=== PATIENT | female | born 1940 | race Caucasian/White ===

== ENCOUNTER 2020-09-11 07:58 | Outpatient (REF) | payer MEDICARE, SELFPAY ==
[2020-09-11 08:56] LABS: MANUAL DIFF FLAG NO
[2020-09-11 09:07] LABS: Basophils Percent Auto 0.5 % (0-2); Eosinophils Absolute Auto 0.2 X10*3/uL (0.0-0.4); Hematocrit 38.7 % (37-47); Imm Gran Abs Auto 0.01 X10*3/uL (0.00-0.03); Imm Gran Pct Auto 0.3 % (0.0-0.4); Lymphocytes Absolute Auto 1.8 X10*3/uL (1.2-4.9); Mean Corpuscular HGB Conc 33.6 g/dl (31.0-35.0); Mean Corpuscular Hemoglobin 33.6 pg (27.0-33.0); Mean Platelet Volume 12.8 fL (9.4-12.3); Monocytes Absolute Auto 0.3 X10*3/uL (0.1-1.2); Neutrophils Absolute Auto 1.5 X10*3/uL (2.0-8.3); Neutrophils Percent Auto 39.2 % (45-73); Platelet Count 173 X10*3/uL (160-400); Red Blood Count 3.87 X10*6/uL (4.20-5.50); Red Cell Distribution Width 12.5 % (11.0-16.0); White Blood Count 3.8 X10*3/uL (4.8-10.8)
[2020-09-11 09:21] LABS: Alanine Aminotransferase 12 U/L (0-31); Albumin Level 4.2 g/dL (3.5-5.0); Alkaline Phosphatase 58 U/L (39-117); Anion Gap 10 (12-20); Aspartate Amino Transferase 18 U/L (5-31); Bilirubin Total 0.4 mg/dL (0.0-1.0); Blood Urea Nitrogen 13 mg/dL (9-16); Calcium 9.3 mg/dL (8.4-10.2); Carbon Dioxide 30 mmol/L (22-29); Chloride 104 mmol/L (96-108); Estimated Glomerular Filt Rate > 60; Glucose Random 90 mg/dL (60-115); Iron 214 mcg/dL (30-160); Percent Iron Saturation 86 % (15-50); Potassium 4.1 mmol/l (3.3-5.1); Sodium 140 mmol/L (135-145); Total Iron Binding Capacity 248 mcg/dL (228-428); Total Protein 6.9 g/dL (6.5-8.0); Unsaturated Iron Binding 34 ug/dL
[2020-09-11 09:42] LABS: Ferritin 188 ng/mL (10-250)
== END 2020-09-11 07:59 | disposition home or self-care (01) ==
LOC: HO.LAB 07:58
PROVIDERS: Absent Provider Internal Medicine Medical Oncology; PCP Internal Medicine; Visit Provider Internal Medicine
DX: E83.110 Hereditary hemochromatosis (principal); I10 Essential (primary) hypertension; J44.9 Chronic obstructive pulmonary disease, unspecified; M19.90 Unspecified osteoarthritis, unspecified site
CPT/HCPCS: 36415; 80053; 82728; 83540; 85025

== ENCOUNTER → 2020-10-18 14:01 | Outpatient (BNVA) | payer MEDICARE, SELFPAY | PROVIDERS: PCP Internal Medicine; Visit Provider Orthopaedic Surgery | DX: M19.041 Primary osteoarthritis, right hand (principal); M19.042 Primary osteoarthritis, left hand; M65.332 Trigger finger, left middle finger | CPT/HCPCS: 20550; 99202; J1100 ==

== ENCOUNTER 2020-12-29 07:18 | Outpatient (REF) | payer MEDICARE, SELFPAY ==
[2020-12-29 08:03] LABS: MANUAL DIFF FLAG NO
[2020-12-29 08:22] LABS: Basophils Percent Auto 0.9 % (0-2); Eosinophils Absolute Auto 0.1 X10*3/uL (0.0-0.4); Eosinophils Percent Auto 2.8 % (0-4); Hematocrit 38.4 % (37-47); Hemoglobin 13.1 g/dl (12.0-16.0); Imm Gran Abs Auto 0.01 X10*3/uL (0.00-0.03); Imm Gran Pct Auto 0.2 % (0.0-0.4); Lymphocytes Absolute Auto 2.3 X10*3/uL (1.2-4.9); Lymphocytes Percent Auto 53.7 % (20-40); Mean Corpuscular HGB Conc 34.1 g/dl (31.0-35.0); Mean Corpuscular Hemoglobin 34.4 pg (27.0-33.0); Mean Corpuscular Volume 100.8 fL (80-98); Mean Platelet Volume 11.9 fL (9.4-12.3); Monocytes Absolute Auto 0.4 X10*3/uL (0.1-1.2); Monocytes Percent Auto 9.7 % (2-11); Neutrophils Absolute Auto 1.4 X10*3/uL (2.0-8.3); Neutrophils Percent Auto 32.7 % (45-73); Platelet Count 206 X10*3/uL (160-400); Red Blood Count 3.81 X10*6/uL (4.20-5.50); Red Cell Distribution Width 12.2 % (11.0-16.0); White Blood Count 4.3 X10*3/uL (4.8-10.8)
[2020-12-29 08:31] LABS: Alanine Aminotransferase 14 U/L (0-31); Albumin Level 4.1 g/dL (3.5-5.0); Alkaline Phosphatase 67 U/L (39-117); Anion Gap 13 (12-20); Aspartate Amino Transferase 23 U/L (5-31); Bilirubin Total 0.5 mg/dL (0.0-1.0); Blood Urea Nitrogen 12 mg/dL (9-16); Calcium 9.8 mg/dL (8.4-10.2); Carbon Dioxide 27 mmol/L (22-29); Chloride 103 mmol/L (96-108); Estimated Glomerular Filt Rate > 60; Glucose Random 83 mg/dL (60-115); Iron 206 mcg/dL (30-160); Percent Iron Saturation 85 % (15-50); Potassium 4.2 mmol/L (3.3-5.1); Sodium 139 mmol/L (135-145); Total Iron Binding Capacity 243 mcg/dL (228-428); Total Protein 7.1 g/dL (6.5-8.0); Unsaturated Iron Binding 37 ug/dL
[2020-12-29 08:43] LABS: Glucose Urine UA NEG (NEG); Leukocyte Esterase Urine TRACE (NEG); Nitrite Urine NEG (NEG); Specific Gravity - Urine 1.015 (1.005-1.025); Urine Blood NEG (NEG); Urine Ketones NEG (NEG); Urine Protein NEG (NEG-TRACE)
[2020-12-29 08:44] LABS: Appearance Urine CLEAR; Color Urine YELLOW
[2020-12-29 08:53] LABS: Ferritin 150 ng/mL (10-250)
[2020-12-29 09:03] LABS: RBC Urine 0 /HPF (0); Squamous Epithelial Cell Urine TRACE /LPF
== END 2020-12-29 07:19 | disposition home or self-care (01) ==
LOC: HO.LAB 07:18
PROVIDERS: PCP Internal Medicine; Visit Provider Internal Medicine
DX: I10 Essential (primary) hypertension (principal); G25.81 Restless legs syndrome; K21.9 Gastro-esophageal reflux disease without esophagitis; E83.119 Hemochromatosis, unspecified
CPT/HCPCS: 36415; 80053; 81001; 81003; 82728; 83540; 85025

== ENCOUNTER 2021-03-21 10:14 | Outpatient (REF) | payer SELFPAY | END 2021-03-21 10:15 | disposition home or self-care (01) | LOC: HO.HAP 10:14 | PROVIDERS: Visit Provider Internal Medicine | DX: Z46.1 Encounter for fitting and adjustment of hearing aid (principal); H90.6 Mixed conductive and sensorineural hearing loss, bilateral; H69.93 Unspecified Eustachian tube disorder, bilateral | CPT/HCPCS: 99499 ==

== ENCOUNTER 2021-04-12 06:24 | Outpatient (REF) | payer MEDICARE, SELFPAY ==
[2021-04-12 06:56] LABS: MANUAL DIFF FLAG NO
[2021-04-12 06:59] LABS: Basophils Percent Auto 0.6 % (0-2); Eosinophils Absolute Auto 0.2 X10*3/uL (0.0-0.4); Eosinophils Percent Auto 4.7 % (0-4); Hematocrit 35.9 % (37-47); Hemoglobin 12.5 g/dl (12.0-16.0); Imm Gran Abs Auto 0.01 X10*3/uL (0.00-0.03); Imm Gran Pct Auto 0.3 % (0.0-0.4); Lymphocytes Absolute Auto 1.7 X10*3/uL (1.2-4.9); Lymphocytes Percent Auto 51.5 % (20-40); Mean Corpuscular HGB Conc 34.8 g/dl (31.0-35.0); Mean Corpuscular Hemoglobin 35.1 pg (27.0-33.0); Mean Corpuscular Volume 100.8 fL (80-98); Mean Platelet Volume 11.7 fL (9.4-12.3); Monocytes Absolute Auto 0.3 X10*3/uL (0.1-1.2); Monocytes Percent Auto 8.3 % (2-11); Neutrophils Absolute Auto 1.2 X10*3/uL (2.0-8.3); Neutrophils Percent Auto 34.6 % (45-73); Platelet Count 190 X10*3/uL (160-400); Red Blood Count 3.56 X10*6/uL (4.20-5.50); Red Cell Distribution Width 12.4 % (11.0-16.0); White Blood Count 3.4 X10*3/uL (4.8-10.8)
[2021-04-12 07:32] LABS: Alanine Aminotransferase 13 U/L (0-31); Alkaline Phosphatase 55 U/L (39-117); Anion Gap 10 (12-20); Aspartate Amino Transferase 20 U/L (5-31); Bilirubin Total 0.5 mg/dL (0.0-1.0); Blood Urea Nitrogen 14 mg/dL (9-16); Calcium 9.3 mg/dL (8.4-10.2); Carbon Dioxide 27 mmol/L (22-29); Chloride 109 mmol/L (96-108); Cholesterol 160 mg/dL; Estimated Glomerular Filt Rate > 60; Glucose Fasting 94 mg/dL (60-99); HDL Cholesterol 43 mg/dL; Iron 209 mcg/dL (30-160); LDL Cholesterol Calculated 95 mg/dl; Percent Iron Saturation 87 % (15-50); Potassium 4.1 mmol/L (3.3-5.1); Sodium 142 mmol/L (135-145); Total Iron Binding Capacity 239 mcg/dL (228-428); Total Protein 6.9 g/dL (6.5-8.0); Triglycerides 114 mg/dL; Unsaturated Iron Binding 30 ug/dL
[2021-04-12 08:08] LABS: Ferritin 149 ng/mL (10-250)
[2021-04-12 08:52] LABS: Glucose Urine UA NEG (NEG); Leukocyte Esterase Urine TRACE (NEG); Nitrite Urine NEG (NEG); Urine Blood NEG (NEG); Urine Ketones NEG (NEG); Urine Protein NEG (NEG-TRACE)
[2021-04-12 08:54] LABS: Appearance Urine CLEAR; Color Urine YELLOW
[2021-04-12 09:35] LABS: Bacteria Urine TRACE /LPF; RBC Urine 0-2 /HPF (0); Squamous Epithelial Cell Urine TRACE /LPF
== END 2021-04-12 06:25 | disposition home or self-care (01) ==
LOC: HO.LAB 06:24
PROVIDERS: PCP Internal Medicine; Visit Provider Internal Medicine
DX: I10 Essential (primary) hypertension (principal); E78.00 Pure hypercholesterolemia, unspecified; E83.119 Hemochromatosis, unspecified; M81.0 Age-related osteoporosis without current pathological fracture
CPT/HCPCS: 36415; 80053; 80061; 81001; 82728; 83540; 85025

== ENCOUNTER 2021-04-26 08:56 | Outpatient (REF) | payer MEDICARE, SELFPAY ==
--- NOTE | ~2021-04-26 | MM_ITS ---
EXAMINATION: MM SCREENING DIGITAL BREAST TOMOSYNTHESIS, BILATERAL CLINICAL INFORMATION: Screening. Asymptomatic. The lifetime risk of breast cancer based on the Tyrer-Cuzick Model is 2%. COMPARISON: Mammography: 04/20/2020, 10/01/2018, 12/29/2017 TECHNIQUE: Digital breast tomosynthesis is performed in both the craniocaudal and mediolateral oblique views along with computer-aided detection (CAD). Synthesized 2D images are generated from the tomosynthesis. FINDINGS: There are scattered areas of fibroglandular density (ACR BI-RADS breast composition Category b). There are no significant masses, abnormal calcifications, or other abnormalities. Parenchymal pattern is similar to prior studies. No developing density. There are scattered bilateral vascular and benign punctate round calcifications again seen. The skin contours are smooth. No significant changes. MM/MM tomosynthesis screening BI IMPRESSION: No mammographic evidence of malignancy. ASSESSMENT: BI-RADS 2: Benign RECOMMENDATION: Routine annual mammography screening. This patient's information was entered into a reminder system with a target due date for their next mammogram.
--- NOTE | ~2021-04-26 | MM_ITS ---
EXAMINATION: BONE DENSITOMETRY CLINICAL INDICATION: Screening for osteoporosis. COMPARISON: Previous BD dated 12/30/2018 and baseline BD dated 07/22/2007. TECHNIQUE: Using a [employer] DXA System (software version: 13.1) manufactured by [employer], dual-energy x-ray absorptiometry was performed of the lumbar spine and left hip. The images are of good technical quality. Summary results are attached. FINDINGS: AP SPINE L1-L2 (excluding L3 and L4): The data of L1-L4 has been changed to exclude the L3 and L4 vertebral bodies, because hardware at these levels may cause overestimation of lumbar spine density. Current: BMD 1.036 g/cm2, Z-score 0.5, T-score -1.1, osteopenia, 0.3% decrease from previous, 9.3% decrease from baseline (<5% change is not significant). Prior: BMD 1.039 g/cm2. Baseline: BMD 1.142 g/cm2. LEFT FEMUR, NECK: Current: BMD 0.650 g/cm2, Z-score -0.7, T-score -2.8, osteoporosis. Prior: BMD 0.785 g/cm2. Baseline: BMD 0.803 g/cm2. LEFT FEMUR, TOTAL: Current: BMD 0.741 g/cm2, Z-score -0.2, T-score -2.1, osteopenia, 14.6% decrease from previous, 18.6% decrease from baseline (<5% change is not significant). Prior: BMD 0.868 g/cm2. Baseline: BMD 0.910 g/cm2. IDENTIFIED RISK FACTORS: Early menopause, secondary osteoporosis, osteoporosis, height loss, low calcium intake, hysterectomy, bilateral oophorectomy. HISTORY OF FRACTURE: None listed. MEDICATIONS: Calcium supplements or multivitamin, vitamin D. MM/XR DEXA axial skeleton IMPRESSION: 1. DIAGNOSIS: Osteoporosis based on the lowest T-score value of -2.8 in the femoral neck applying World Health Organization criteria. 2. 10-YEAR FRACTURE RISK PREDICTION, FRAX: According to the guidelines, FRAX calculation should only be performed on patients in the osteopenia bone density category. Therefore, FRAX was not performed on this patient. 3. Treatment Recommendations: NOF guidelines recommend consideration for treatment in postmenopausal women and men age 50 and older presenting with the following: -A hip or vertebral (clinical or morphometric) fracture. -T-score less than or equal to -2.5 at the femoral neck or spine after appropriate evaluation to exclude secondary causes. -Low bone mass at the hip or spine and a 10-year fracture probability by FRAX of greater than or equal to 3% for hip fracture or greater than or equal to 20% for major osteoporotic fracture based on the [place] adapted WHO algorithm. 4. Other Recommendations: All treatment decisions require clinical judgment and consideration of individual patient factors, including patient preferences, comorbidities, previous drug use, risk factors not captured in the FRAX model (e.g. frailty, falls, vitamin D deficiency, increased bone turnover, interval significant decline in bone density) and possible under or overestimation of fracture risk by FRAX. Additional medical evaluation for secondary cause of low bone mineral density may be appropriate. FUTURE SCAN RECOMMENDATION: People with diagnosed cases of osteoporosis or at high risk for fracture should have regular bone mineral density tests. For patients eligible for Medicare, routine testing is allowed once every 2 years. The testing frequency can be increased to one year for patients who have rapidly progressing disease, those who are receiving or discontinuing medical therapy to restore bone mass, or have additional risk factors.
== END 2021-04-26 08:57 | disposition home or self-care (01) ==
LOC: HO.MAMMO 08:56
PROVIDERS: PCP Internal Medicine; Visit Provider Internal Medicine
DX: Z13.820 Encounter for screening for osteoporosis (principal); Z78.0 Asymptomatic menopausal state; Z12.31 Encounter for screening mammogram for malignant neoplasm of breast
CPT/HCPCS: 77063; 77067; 77080

== ENCOUNTER 2021-07-03 12:06 | Outpatient (REF) | payer MEDICARE, SELFPAY ==
[2021-07-03 13:44] LABS: MANUAL DIFF FLAG NO
[2021-07-03 13:55] LABS: Basophils Percent Auto 0.6 % (0-2); Eosinophils Absolute Auto 0.2 X10*3/uL (0.0-0.4); Eosinophils Percent Auto 3.2 % (0-4); Hematocrit 37.1 % (37-47); Hemoglobin 12.7 g/dl (12.0-16.0); Imm Gran Abs Auto 0.01 X10*3/uL (0.00-0.03); Imm Gran Pct Auto 0.2 % (0.0-0.4); Lymphocytes Absolute Auto 2.5 X10*3/uL (1.2-4.9); Lymphocytes Percent Auto 51.2 % (20-40); Mean Corpuscular HGB Conc 34.2 g/dl (31.0-35.0); Mean Corpuscular Hemoglobin 34.2 pg (27.0-33.0); Monocytes Absolute Auto 0.4 X10*3/uL (0.1-1.2); Monocytes Percent Auto 8.5 % (2-11); Neutrophils Absolute Auto 1.8 X10*3/uL (2.0-8.3); Neutrophils Percent Auto 36.3 % (45-73); Platelet Count 204 X10*3/uL (160-400); Red Blood Count 3.71 X10*6/uL (4.20-5.50); Red Cell Distribution Width 12.1 % (11.0-16.0); White Blood Count 4.9 X10*3/uL (4.8-10.8)
[2021-07-03 14:23] LABS: Alanine Aminotransferase 11 U/L (0-31); Albumin Level 4.1 g/dL (3.5-5.0); Alkaline Phosphatase 54 U/L (39-117); Anion Gap 10 (12-20); Aspartate Amino Transferase 21 U/L (5-31); Bilirubin Total 0.6 mg/dL (0.0-1.0); Blood Urea Nitrogen 17 mg/dL (9-16); Calcium 9.5 mg/dL (8.4-10.2); Carbon Dioxide 30 mmol/L (22-29); Chloride 105 mmol/L (96-108); Estimated Glomerular Filt Rate > 60; Glucose Random 88 mg/dL (60-115); Iron 225 mcg/dL (30-160); Sodium 141 mmol/L (135-145); Total Iron Binding Capacity < 242 mcg/dL (228-428); Unsaturated Iron Binding < 17 ug/dL
[2021-07-03 14:45] LABS: Ferritin 167 ng/mL (10-250)
== END 2021-07-03 12:07 | disposition home or self-care (01) ==
LOC: HO.10HDL 12:06
PROVIDERS: Visit Provider Internal Medicine
DX: I10 Essential (primary) hypertension (principal); K21.9 Gastro-esophageal reflux disease without esophagitis; E83.119 Hemochromatosis, unspecified; Z87.442 Personal history of urinary calculi
CPT/HCPCS: 36415; 80053; 82728; 83540; 85025

== ENCOUNTER 2021-07-04 07:46 | Outpatient (REF) | payer MEDICARE, SELFPAY ==
[2021-07-04 10:41] LABS: Appearance Urine CLOUDY; Color Urine YELLOW; Glucose Urine UA NEG (NEG); Leukocyte Esterase Urine TRACE (NEG); Nitrite Urine NEG (NEG); PH 7.5 (5.0-8.0); Specific Gravity - Urine 1.015 (1.005-1.025); Urine Blood 1+ (NEG); Urine Ketones NEG (NEG); Urine Protein NEG (NEG-TRACE)
[2021-07-04 11:00] LABS: Amorphous Sediment Urine 3+ /LPF; Bacteria Urine 1+ /LPF; Squamous Epithelial Cell Urine 1+ /LPF
== END 2021-07-04 07:47 | disposition home or self-care (01) ==
LOC: HO.10HDLNP 07:46
PROVIDERS: Visit Provider Internal Medicine
DX: E83.110 Hereditary hemochromatosis (principal); I10 Essential (primary) hypertension; K21.9 Gastro-esophageal reflux disease without esophagitis; Z87.442 Personal history of urinary calculi
CPT/HCPCS: 81001; 81003

== ENCOUNTER 2021-09-24 09:29 | Outpatient (REF) | payer MEDICARE, SELFPAY ==
--- NOTE | ~2021-09-24 | US_ITS ---
EXAMINATION: US RETROPERITONEAL LIMITED (RENAL ONLY) CLINICAL INFORMATION: Calculus of kidney. COMPARISON: Renal ultrasound 10/11/2019 and 08/17/2019. X-ray abdomen KUB 09/22/2019. CT abdomen and pelvis 05/05/2013. TECHNIQUE: Real-time imaging of the kidneys. FINDINGS: RIGHT KIDNEY: 9.4 x 4.0 x 4.9 cm (SAG x AP x TRV). The kidney is normal in size, contour, and echogenicity. Renal cortical thickness is normal. No renal calculi or hydronephrosis. There is an anechoic cyst in the midpole measuring 4.5 x 4.7 x 5.2 cm. There is an anechoic cyst with calcification on the parapharyngeal in the upper pole measuring 1.0 x 0.9 x 1.0 cm. No echogenic vascular calcifications at the lower pole. LEFT KIDNEY: 8.4 x 4.8 x 5.4 cm (SAG x AP x TRV). The kidney is normal in size, contour, and echogenicity. Renal cortical thickness is normal. No calculi or focal parenchymal lesions. No hydronephrosis. US/US renal BI IMPRESSION: Simple cyst and a complex Bosniak type II cyst midpole and upper pole right kidney respectively. No caliectasis or hydronephrosis. Unremarkable left kidney.
[2021-09-24 10:21] LABS: MANUAL DIFF FLAG NO
[2021-09-24 10:47] LABS: Basophils Percent Auto 0.7 % (0-2); Eosinophils Absolute Auto 0.1 X10*3/uL (0.0-0.4); Eosinophils Percent Auto 3.4 % (0-4); Hematocrit 37.4 % (37.0-47.0); Hemoglobin 12.7 g/dl (12.0-16.0); Imm Gran Abs Auto 0.01 X10*3/uL (0.00-0.03); Imm Gran Pct Auto 0.2 % (0.0-0.4); Lymphocytes Absolute Auto 1.9 X10*3/uL (1.2-4.9); Lymphocytes Percent Auto 46.2 % (20-40); Mean Corpuscular Hemoglobin 34.2 pg (27.0-33.0); Mean Corpuscular Volume 100.8 fL (80.0-98.0); Mean Platelet Volume 12.3 fL (9.4-12.3); Monocytes Absolute Auto 0.4 X10*3/uL (0.1-1.2); Monocytes Percent Auto 8.5 % (2-11); Neutrophils Absolute Auto 1.7 x10*3/uL (2.0-8.3); Platelet Count 176 X10*3/uL (160-400); Red Blood Count 3.71 X10*6/uL (4.20-5.50); Red Cell Distribution Width 12.6 % (11.0-16.0); White Blood Count 4.1 X10*3/uL (4.8-10.8)
[2021-09-24 11:16] LABS: Alanine Aminotransferase 13 U/L (0-31); Albumin Level 3.9 g/dL (3.5-5.0); Alkaline Phosphatase 58 U/L (39-117); Anion Gap 10 (12-20); Aspartate Amino Transferase 20 U/L (5-31); Bilirubin Total 0.5 mg/dL (0.0-1.0); Blood Urea Nitrogen 22 mg/dL (9-16); Calcium 9.9 mg/dL (8.4-10.2); Carbon Dioxide 29 mmol/L (22-29); Chloride 106 mmol/L (96-108); Estimated Glomerular Filt Rate > 60; Glucose Random 78 mg/dL (60-115); Potassium 4.6 mmol/L (3.3-5.1); Sodium 140 mmol/L (135-145); Total Protein 6.8 g/dL (6.5-8.0)
[2021-09-24 11:32] LABS: Ferritin 189 ng/mL (10-250)
== END 2021-09-24 09:30 | disposition home or self-care (01) ==
LOC: HO.US 09:29
PROVIDERS: Absent Provider Internal Medicine Medical Oncology; PCP Internal Medicine; Visit Provider Urology
DX: N20.0 Calculus of kidney (principal); E83.110 Hereditary hemochromatosis; E66.9 Obesity, unspecified
CPT/HCPCS: 36415; 76775; 80053; 82728; 85025

== ENCOUNTER → 2021-10-09 12:04 | Outpatient (BNVA) | payer MEDICARE, SELFPAY | PROVIDERS: PCP Internal Medicine | DX: Z13.89 Encounter for screening for other disorder (principal) | CPT/HCPCS: Q3014 ==

== ENCOUNTER 2021-10-11 06:40 | Outpatient (REF) | payer MEDICARE, SELFPAY ==
[2021-10-11 06:51] LABS: MANUAL DIFF FLAG NO
[2021-10-11 07:21] LABS: Basophils Percent Auto 0.5 % (0-2); Eosinophils Absolute Auto 0.2 X10*3/uL (0.0-0.4); Eosinophils Percent Auto 4.6 % (0-4); Hematocrit 37.7 % (37.0-47.0); Hemoglobin 12.6 g/dl (12.0-16.0); Imm Gran Abs Auto 0.01 X10*3/uL (0.00-0.03); Imm Gran Pct Auto 0.2 % (0.0-0.4); Lymphocytes Absolute Auto 2.1 X10*3/uL (1.2-4.9); Lymphocytes Percent Auto 47.2 % (20-40); Mean Corpuscular HGB Conc 33.4 g/dl (31.0-35.0); Mean Corpuscular Hemoglobin 33.5 pg (27.0-33.0); Mean Corpuscular Volume 100.3 fL (80.0-98.0); Mean Platelet Volume 12.1 fL (9.4-12.3); Monocytes Absolute Auto 0.5 X10*3/uL (0.1-1.2); Monocytes Percent Auto 10.8 % (2-11); Neutrophils Absolute Auto 1.6 x10*3/uL (2.0-8.3); Neutrophils Percent Auto 36.7 % (45-73); Platelet Count 188 X10*3/uL (160-400); Red Blood Count 3.76 X10*6/uL (4.20-5.50); Red Cell Distribution Width 12.8 % (11.0-16.0); White Blood Count 4.3 X10*3/uL (4.8-10.8)
[2021-10-11 07:49] LABS: Alanine Aminotransferase 15 U/L (0-31); Albumin Level 4.1 g/dL (3.5-5.0); Alkaline Phosphatase 64 U/L (39-117); Anion Gap 10 (12-20); Aspartate Amino Transferase 22 U/L (5-31); Bilirubin Total 0.4 mg/dL (0.0-1.0); Blood Urea Nitrogen 17 mg/dL (9-16); Calcium 9.8 mg/dL (8.4-10.2); Carbon Dioxide 28 mmol/L (22-29); Chloride 108 mmol/L (96-108); Estimated Glomerular Filt Rate > 60; Glucose Random 84 mg/dL (60-115); Potassium 4.1 mmol/L (3.3-5.1); Sodium 142 mmol/L (135-145)
== END 2021-10-11 06:41 | disposition home or self-care (01) ==
LOC: HO.LAB 06:40
PROVIDERS: PCP Internal Medicine; Visit Provider Internal Medicine Medical Oncology
DX: E83.110 Hereditary hemochromatosis (principal); E66.3 Overweight
CPT/HCPCS: 36415; 80053; 85025

== ENCOUNTER 2021-10-15 08:39 | Outpatient (REF) | payer MEDICARE, SELFPAY ==
--- NOTE | ~2021-10-15 | CT_ITS ---
EXAMINATION: CT ABDOMEN WITH CONTRAST CLINICAL INFORMATION: Hereditary hemochromatosis COMPARISON: Renal ultrasound 09/24/[address] abdomen pelvis 05/05/2013 TECHNIQUE: Contiguous axial thin section helical images of the abdomen were performed following the administration of 85 mL of Omnipaque 350 intravenous contrast. The data set was reformatted in the coronal and sagittal planes and reviewed on an independent workstation. This CT examination was performed using dose optimization techniques as appropriate, variously including the following: *Automated exposure control *Adjustment of mA and/or kV according to patient size (this includes techniques or standardized protocols for targeted exams where dose is matched to indication/reason for exam; i.e. extremities or head) *Use of iterative reconstruction technique DLP: 208 mGy-cm FINDINGS: Visualized lung bases demonstrate lingular and dependent atelectasis. Small calcified granuloma of the right lung base. The liver demonstrates normal size, attenuation and contour. 6 mm hypodense focus the mid right hepatic lobe is small to accurately characterize. Gallstone again identified within an otherwise unremarkable appearing gallbladder. Mild fatty atrophy of the pancreas. Spleen and right adrenal gland are unremarkable. Mild hypertrophy of the left adrenal gland. Symmetrically enhancing kidneys without hydronephrosis. There is a 3 mm nonobstructing calculus within the midpole of the right kidney and a smaller 2 mm nonobstructing calculus within the lower pole of the right kidney. No left-sided renal calculi are identified. There is an approximately 5 cm right renal cyst noted which has increased in size from 2012 (previously 3 cm). A few other sub-5 mm renal hypodensities bilaterally are too small to accurately characterize. The stomach is relatively decompressed. Visualized loops of small bowel are normal in caliber. Visualized loops of colon demonstrate a mild to moderate stool burden. There is mild colonic diverticulosis demonstrated without CT evidence to suggest active diverticulitis. The appendix is normal in appearance. Normal caliber abdominal aorta demonstrating mild to moderate atherosclerotic disease. A recanalized umbilical vein is noted. 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 Diffuse osteopenia. Moderate degenerative changes of the spine. Postsurgical changes of the lower lumbar spine. Similar mild anterolisthesis of L4 and L5. CT/CT abdomen w con IMPRESSION: 1. Cholelithiasis. 2. Tiny nonobstructing right renal calculi. No hydronephrosis. 3. Bilateral renal cysts again noted. 4. Colonic diverticulosis. 5. Recanalized umbilical vein. Fleischner guidelines were followed.
[2021-10-15] MEDS: iohexoL 350 MG/ML 100 ML INFUS..BTL IV (10:14)
[2021-10-15] MEDS: Barium Sulfate Oral (Berry) 450 ML ORAL.SUSP PO (10:16)
== END 2021-10-15 08:40 | disposition home or self-care (01) ==
LOC: HO.CT 08:39
PROVIDERS: PCP Internal Medicine Medical Oncology; Visit Provider Internal Medicine Medical Oncology
DX: E83.110 Hereditary hemochromatosis (principal)
CPT/HCPCS: 74160; Q9967

== ENCOUNTER → 2021-12-11 08:58 | Outpatient (BNVA) | payer MEDICARE, SELFPAY | PROVIDERS: PCP Internal Medicine Medical Oncology; Visit Provider Orthopaedic Surgery | DX: M65.331 Trigger finger, right middle finger (principal); M19.041 Primary osteoarthritis, right hand; M19.042 Primary osteoarthritis, left hand; M65.332 Trigger finger, left middle finger; M65.342 Trigger finger, left ring finger | CPT/HCPCS: 99212 ==

== ENCOUNTER 2021-12-14 11:11 | Outpatient (REF) | payer MEDICARE, SELFPAY ==
[2021-12-14 11:41] LABS: MANUAL DIFF FLAG NO
[2021-12-14 12:09] LABS: Basophils Percent Auto 0.2 % (0-2); Eosinophils Absolute Auto 0.1 X10*3/uL (0.0-0.4); Eosinophils Percent Auto 2.2 % (0-4); Hematocrit 36.4 % (37.0-47.0); Hemoglobin 12.4 g/dl (12.0-16.0); Lymphocytes Absolute Auto 1.9 X10*3/uL (1.2-4.9); Lymphocytes Percent Auto 47.4 % (20-40); Mean Corpuscular HGB Conc 34.1 g/dl (31.0-35.0); Mean Corpuscular Hemoglobin 34.3 pg (27.0-33.0); Mean Corpuscular Volume 100.8 fL (80.0-98.0); Mean Platelet Volume 11.7 fL (9.4-12.3); Monocytes Absolute Auto 0.4 X10*3/uL (0.1-1.2); Neutrophils Absolute Auto 1.7 x10*3/uL (2.0-8.3); Neutrophils Percent Auto 41.2 % (45-73); Platelet Count 164 X10*3/uL (160-400); Red Blood Count 3.61 X10*6/uL (4.20-5.50); Red Cell Distribution Width 13.2 % (11.0-16.0)
[2021-12-14 12:24] LABS: Appearance Urine CLEAR; Color Urine YELLOW; Glucose Urine UA NEG (NEG); Leukocyte Esterase Urine TRACE (NEG); Nitrite Urine NEG (NEG); Urine Blood NEG (NEG); Urine Ketones NEG (NEG); Urine Protein NEG (NEG-TRACE)
[2021-12-14 12:38] LABS: Iron 178 mcg/dL (30-160); Percent Iron Saturation 77 % (15-50); Total Iron Binding Capacity 231 mcg/dL (228-428); Unsaturated Iron Binding 53 ug/dL
[2021-12-14 13:18] LABS: Bacteria Urine 1+ /LPF; RBC Urine 0-2 /HPF (0); Squamous Epithelial Cell Urine TRACE /LPF
== END 2021-12-14 11:12 | disposition home or self-care (01) ==
LOC: HO.LAB 11:11
PROVIDERS: PCP Internal Medicine; Visit Provider Internal Medicine
DX: I10 Essential (primary) hypertension (principal); E83.119 Hemochromatosis, unspecified; R31.9 Hematuria, unspecified
CPT/HCPCS: 36415; 81001; 83540; 85025

== ENCOUNTER 2021-12-26 10:38 | Outpatient (REF) | payer SELFPAY | END 2021-12-26 10:39 | disposition home or self-care (01) | LOC: HO.HAP 10:38 | PROVIDERS: Visit Provider Internal Medicine | DX: Z46.2 Encounter for fitting and adjustment of other devices related to nervous system and special senses (principal) | CPT/HCPCS: 99499 ==

== ENCOUNTER 2022-01-10 10:16 | Day surgery (SDC) | payer MEDICARE, SELFPAY ==
[2022-01-10 10:32] VITALS: BP 164/77; PULSE 71; RESP 18; TEMP 36.5; O2SAT 95; BMI 28.3
[2022-01-10 12:57] VITALS: BP 155/73; PULSE 89; RESP 21; TEMP 37; O2SAT 95
--- NOTE | 2022-01-10 12:57 | MHC.SHP ---
Pre-Procedural Eval Section A Date of Service: 01/10/22 The patient is an INPATIENT: No Changes since office visit: No Cold of Flu in the past 2 weeks, No New Medical Problems, No Changes in Medication and No Patient answered all questions The History & Physical has been completed within 30 days and I have reviewed it.: Yes Section B Chief Complaint: Right middle finger trigger finger Allergies: Allergies Allergy/AdvReac Type Severity Reaction Status Date / Time bee pollen [BEE STINGS] Allergy Severe ANAPHYLAXIS Verified 10/09/21 12:51 celecoxib [From Celebrex] Allergy Severe INTERNAL Verified 10/09/21 12:51 BLEEDING Plan I have reviewed the history and physical and performed a pertinent physical examination on my patient. No changes have occurred unless specified.
--- NOTE | 2022-01-10 12:58 | W.PM.OPN ---
Operative Note Operative Note Date of Service: 01/10/22 Narrative: Operative Note Preop diagnosis: 1. right middle finger Trigger finger, locked in extension Postop diagnosis: 1. right middle finger Trigger finger Procedure: 1. right middle finger A1 zachariah release 2. Right middle finger PIP joint closed manipulation Surgeon: Fela Smith MD Anesthesia: local block using 1% lidocaine with epinephrine Findings: No locking or catching after A1 zachariah release EBL: Less than 5 mL Tourniquet time: None Specimens: None Complications: None Disposition: Brought to recovery room in stable condition Plan: Follow-up for 10-14 days for wound check and suture removal Indications: The patient is 81 years old, with a right middle finger trigger finger that was locked in extension. The risks and benefits of operative treatment including but not limited to risk of damage to blood vessels, nerves, tendons, infection, persistent pain, persistent symptoms, recurrence or possible need for additional surgery were discussed with the patient and the patient wishes to proceed with surgery. Procedure: Once consent was obtained a local block was performed in the preop area using a combination of 1% lidocaine with epinephrine. The patient was then brought back to the operating suite and placed on the operative table in supine position. A tourniquet was applied to the proximal aspect of the right upper extremity and the limb was prepped and draped in a standard surgical fashion. Once assured that we had a good block, a 1.5 cm oblique incision was made centered over the A1 zachariah of the right middle finger . The incision was made through the skin to the subcutaneous tissues using a #15 blade. Careful dissection was made down to the level of the A1 zachariah using tenotomy scissors, with care being taken to protect the nearby neurovascular structures. A longitudinal incision was made in the A1 zachariah 1st using a #15 blade, then using tenotomy scissors under direct visualization. The A1 zachariah was noted to be thickened. the FDS tendon was noted to be thickened and flattened beneath the A1 zachariah. I then performed a gentle closed manipulation of the left middle finger PIP joint. I was able to bring her middle finger tip to touch her palm. I then had her actively flex and extend her fingers to check for any locking or catching, and to show her that she could now actively flex her middle finger into a fist. Following our A1 zachariah release, we no longer saw any locking or catching of the digit with flexion and extension. Once satisfied with our A1 zachariah release the wound was copiously irrigated with normal saline and hemostasis was obtained with a brief period of local pressure. The skin edges were reapproximated with some 5.0 nylon suture material and a sterile dressing was applied. The patient appears to have tolerated the procedure well and with no complications. All digits were well vascularized at the conclusion of the case.
== END 2022-01-10 13:20 | disposition home or self-care (01) ==
PROVIDERS: PCP Internal Medicine; Visit Provider Orthopaedic Surgery
PROC: (CPT 26055; principal; 2022-01-10 12:00)
DX: M65.331 Trigger finger, right middle finger (principal); M19.041 Primary osteoarthritis, right hand; E83.119 Hemochromatosis, unspecified; K21.9 Gastro-esophageal reflux disease without esophagitis; Z79.899 Other long term (current) drug therapy
CPT/HCPCS: 26055; J0171

== ENCOUNTER → 2022-01-23 10:15 | Outpatient (BNVA) | payer MEDICARE, SELFPAY | PROVIDERS: PCP Internal Medicine; Visit Provider Orthopaedic Surgery | DX: Z47.89 Encounter for other orthopedic aftercare (principal); Z87.39 Personal history of other diseases of the musculoskeletal system and connective tissue | CPT/HCPCS: 99212 ==

== ENCOUNTER 2022-03-22 10:31 | Outpatient (REF) | payer MEDICARE, SELFPAY ==
[2022-03-22 13:35] LABS: MANUAL DIFF FLAG NO
[2022-03-22 13:38] LABS: Basophils Percent Auto 0.7 % (0-2); Eosinophils Absolute Auto 0.1 X10*3/uL (0.0-0.4); Eosinophils Percent Auto 2.1 % (0-4); Hematocrit 38.1 % (37.0-47.0); Hemoglobin 13.1 g/dl (12.0-16.0); Imm Gran Abs Auto 0.01 X10*3/uL (0.00-0.03); Imm Gran Pct Auto 0.2 % (0.0-0.4); Lymphocytes Absolute Auto 2.3 X10*3/uL (1.2-4.9); Mean Corpuscular HGB Conc 34.4 g/dl (31.0-35.0); Mean Corpuscular Hemoglobin 34.4 pg (27.0-33.0); Mean Platelet Volume 12.2 fL (9.4-12.3); Monocytes Absolute Auto 0.4 X10*3/uL (0.1-1.2); Monocytes Percent Auto 9.6 % (2-11); Neutrophils Absolute Auto 1.5 x10*3/uL (2.0-8.3); Neutrophils Percent Auto 34.4 % (45-73); Platelet Count 217 X10*3/uL (160-400); Red Blood Count 3.81 X10*6/uL (4.20-5.50); Red Cell Distribution Width 12.3 % (11.0-16.0); White Blood Count 4.3 X10*3/uL (4.8-10.8)
[2022-03-22 13:52] LABS: Alanine Aminotransferase 18 U/L (0-31); Albumin Level 4.4 g/dL (3.5-5.0); Alkaline Phosphatase 55 U/L (39-117); Anion Gap 12 (12-20); Aspartate Amino Transferase 23 U/L (5-31); Bilirubin Total 0.6 mg/dL (0.0-1.0); Blood Urea Nitrogen 17 mg/dL (9-16); Calcium 9.2 mg/dL (8.4-10.2); Carbon Dioxide 28 mmol/L (22-29); Chloride 104 mmol/L (96-108); Estimated Glomerular Filt Rate 60; Glucose Random 84 mg/dL (60-115); Iron 242 mcg/dL (30-160); Potassium 4.2 mmol/L (3.3-5.1); Sodium 140 mmol/L (135-145); Total Iron Binding Capacity < 259 mcg/dL (228-428); Total Protein 7.1 g/dL (6.5-8.0); Unsaturated Iron Binding < 17 ug/dL
[2022-03-22 14:07] LABS: Ferritin 145 ng/mL (10-250)
== END 2022-03-22 10:32 | disposition home or self-care (01) ==
LOC: HO.10HDL 10:31
PROVIDERS: Visit Provider Internal Medicine
DX: I10 Essential (primary) hypertension (principal); E83.119 Hemochromatosis, unspecified
CPT/HCPCS: 36415; 80053; 82728; 83540; 85025

== ENCOUNTER 2022-04-29 08:36 | Outpatient (REF) | payer MEDICARE, SELFPAY ==
--- NOTE | ~2022-04-29 | MM_ITS ---
EXAMINATION: MM SCREENING DIGITAL BREAST TOMOSYNTHESIS, BILATERAL CLINICAL INFORMATION: Screening. Asymptomatic. The lifetime risk of breast cancer based on the Tyrer-Cuzick Model is 1.5%. COMPARISON: Mammography: April 26, 2021 and studies dating back to October 07, 2013 TECHNIQUE: Digital breast tomosynthesis is performed in both the craniocaudal and mediolateral oblique views along with computer-aided detection (CAD). Synthesized 2D images are generated from the tomosynthesis. FINDINGS: There are scattered areas of fibroglandular density (ACR BI-RADS breast composition Category b). There are no significant masses, abnormal calcifications, or other abnormalities. MM/MM tomosynthesis screening BI IMPRESSION: No significant changes from prior exam. ASSESSMENT: BI-RADS 1: Negative RECOMMENDATION: Routine annual mammography screening. This patient's information was entered into a reminder system with a target due date for their next mammogram.
== END 2022-04-29 08:37 | disposition home or self-care (01) ==
LOC: HO.MAMMO 08:36
PROVIDERS: PCP Internal Medicine; Visit Provider Internal Medicine
DX: Z12.31 Encounter for screening mammogram for malignant neoplasm of breast (principal)
CPT/HCPCS: 77063; 77067

== ENCOUNTER 2022-07-03 06:32 | Outpatient (REF) | payer MEDICARE, SELFPAY ==
[2022-07-03 06:39] LABS: MANUAL DIFF FLAG NO
[2022-07-03 07:36] LABS: Basophils Percent Auto 0.9 % (0-2); Eosinophils Absolute Auto 0.1 X10*3/uL (0.0-0.4); Eosinophils Percent Auto 3.7 % (0-4); Hematocrit 39.1 % (37.0-47.0); Hemoglobin 13.3 g/dl (12.0-16.0); Lymphocytes Absolute Auto 1.9 X10*3/uL (1.2-4.9); Lymphocytes Percent Auto 53.6 % (20-40); Mean Corpuscular Hemoglobin 34.5 pg (27.0-33.0); Mean Corpuscular Volume 101.3 fL (80.0-98.0); Mean Platelet Volume 11.9 fL (9.4-12.3); Monocytes Absolute Auto 0.4 X10*3/uL (0.1-1.2); Neutrophils Percent Auto 29.8 % (45-73); Platelet Count 186 X10*3/uL (160-400); Red Blood Count 3.86 X10*6/uL (4.20-5.50); Red Cell Distribution Width 12.6 % (11.0-16.0); White Blood Count 3.5 X10*3/uL (4.8-10.8)
[2022-07-03 08:32] LABS: Alanine Aminotransferase 15 U/L (0-31); Albumin Level 4.2 g/dL (3.5-5.0); Alkaline Phosphatase 47 U/L (39-117); Anion Gap 13 (12-20); Aspartate Amino Transferase 23 U/L (5-31); Bilirubin Total 0.7 mg/dL (0.0-1.0); Blood Urea Nitrogen 17 mg/dL (9-16); Calcium 9.7 mg/dL (8.4-10.2); Carbon Dioxide 27 mmol/L (22-29); Chloride 106 mmol/L (96-108); Cholesterol 168 mg/dL; Estimated Glomerular Filt Rate > 60; Glucose Fasting 92 mg/dL (60-99); HDL Cholesterol 47 mg/dL; Iron 252 mcg/dL (30-160); LDL Cholesterol Calculated 107 mg/dl; Potassium 4.4 mmol/L (3.3-5.1); Sodium 142 mmol/L (135-145); Total Iron Binding Capacity < 269 mcg/dL (228-428); Triglycerides 74 mg/dL; Unsaturated Iron Binding < 17 ug/dL
[2022-07-03 08:33] LABS: Ferritin 163 ng/mL (10-250)
== END 2022-07-03 06:33 | disposition home or self-care (01) ==
LOC: HO.LAB 06:32
PROVIDERS: PCP Internal Medicine; Visit Provider Internal Medicine
DX: I10 Essential (primary) hypertension (principal); E78.00 Pure hypercholesterolemia, unspecified; K21.9 Gastro-esophageal reflux disease without esophagitis
CPT/HCPCS: 36415; 80053; 80061; 82728; 83540; 85025

== ENCOUNTER 2022-09-25 09:58 | Outpatient (REF) | payer MEDICARE, SELFPAY ==
--- NOTE | ~2022-09-25 | US_ITS ---
EXAMINATION: US RETROPERITONEAL LIMITED (RENAL ONLY) CLINICAL INFORMATION: Calculus of kidney. COMPARISON: CT abdomen 10/15/2021. Renal ultrasound 09/24/2021 and 10/11/2019. X-ray abdomen KUB 09/22/2019. TECHNIQUE: Real-time imaging of the kidneys. FINDINGS: RIGHT KIDNEY: 8.8 x 5.3 x 5.9 cm (SAG x AP x TRV). The kidney is normal in size, contour, and echogenicity. Renal cortical thickness is normal. There is a 3 mm midpole nonobstructing calculus. The 2 mm calculus seen at the lower pole of the right kidney on the CAT scan is not identified on this exam. No hydronephrosis. A midpole benign Bosniak class I cyst is present measuring 5.3 cm. Some smaller subcentimeter Bosniak class I cysts are present as well. These need no additional imaging or followup. No solid renal masses are seen. LEFT KIDNEY: 7.7 x 5.0 x 4.5 cm (SAG x AP x TRV). The kidney is normal in size, contour, and echogenicity. Renal cortical thickness is normal. No renal calculi or hydronephrosis. There is a small cortical 5 mm Bosniak class I simple renal cyst which needs no additional imaging or followup. No solid renal masses. US/US renal BI IMPRESSION: 1. A 3 mm nonobstructing right renal calculus is present. 2. Bilateral benign Bosniak class I renal cysts need no additional imaging or followup.
== END 2022-09-25 09:59 | disposition home or self-care (01) ==
LOC: HO.US 09:58
PROVIDERS: PCP Internal Medicine
DX: N20.0 Calculus of kidney (principal); N28.1 Cyst of kidney, acquired
CPT/HCPCS: 76775

== ENCOUNTER 2022-10-07 10:29 | Outpatient (REF) | payer MEDICARE, SELFPAY ==
[2022-10-07 13:37] LABS: MANUAL DIFF FLAG NO
[2022-10-07 14:21] LABS: Basophils Percent Auto 0.7 % (0-2); Eosinophils Absolute Auto 0.4 X10*3/uL (0.0-0.4); Hematocrit 36.5 % (37.0-47.0); Hemoglobin 12.4 g/dl (12.0-16.0); Imm Gran Abs Auto 0.01 X10*3/uL (0.00-0.03); Imm Gran Pct Auto 0.2 % (0.0-0.4); Lymphocytes Absolute Auto 2.1 X10*3/uL (1.2-4.9); Lymphocytes Percent Auto 47.1 % (20-40); Mean Corpuscular Hemoglobin 34.2 pg (27.0-33.0); Mean Corpuscular Volume 100.6 fL (80.0-98.0); Mean Platelet Volume 12.5 fL (9.4-12.3); Monocytes Absolute Auto 0.4 X10*3/uL (0.1-1.2); Monocytes Percent Auto 8.9 % (2-11); Neutrophils Absolute Auto 1.5 x10*3/uL (2.0-8.3); Neutrophils Percent Auto 35.1 % (45-73); Platelet Count 189 X10*3/uL (160-400); Red Blood Count 3.63 X10*6/uL (4.20-5.50); Red Cell Distribution Width 12.9 % (11.0-16.0); White Blood Count 4.4 X10*3/uL (4.8-10.8)
[2022-10-07 14:52] LABS: Ferritin 209 ng/mL (10-250)
[2022-10-07 14:54] LABS: Alanine Aminotransferase 15 U/L (0-31); Albumin Level 4.2 g/dL (3.5-5.0); Alkaline Phosphatase 52 U/L (39-117); Anion Gap 13 (12-20); Aspartate Amino Transferase 22 U/L (5-31); Bilirubin Total 0.8 mg/dL (0.0-1.0); Blood Urea Nitrogen 17 mg/dL (9-16); Calcium 9.6 mg/dL (8.4-10.2); Carbon Dioxide 28 mmol/L (22-29); Chloride 104 mmol/L (96-108); Estimated Glomerular Filt Rate > 60; Glucose Random 87 mg/dL (60-115); Iron 242 mcg/dL (30-160); Percent Iron Saturation 91 % (15-50); Potassium 4.5 mmol/L (3.3-5.1); Sodium 140 mmol/L (135-145); Total Iron Binding Capacity 267 mcg/dL (228-428); Total Protein 6.7 g/dL (6.5-8.0); Unsaturated Iron Binding < 25 ug/dL
== END 2022-10-07 10:30 | disposition home or self-care (01) ==
LOC: HO.10HDL 10:29
PROVIDERS: Visit Provider Internal Medicine
DX: E83.119 Hemochromatosis, unspecified (principal)
CPT/HCPCS: 36415; 80053; 82728; 83540; 85025

== ENCOUNTER → 2022-10-11 13:07 | Outpatient (BNVA) | payer MEDICARE, SELFPAY | PROVIDERS: PCP Internal Medicine; Visit Provider Nurse Practitioner Family | DX: N20.0 Calculus of kidney (principal) | CPT/HCPCS: 99212 ==

== ENCOUNTER 2022-11-12 16:07 | Outpatient (REF) | payer SELFPAY ==
--- NOTE | 2022-11-13 09:34 | MHC.AU.HA3 ---
Hearing Instrument Follow-Up- Binaural Date of Visit: 11/12/22 Right Ear: Antoine, Model, Color, Serial Number: Lorna Nolen [id number] SN: [id number] Color: Silver [employer] Repair Warranty: 07/20/2020 [employer] Loss and Damage Warranty: 07/20/2020 Battery Size: 13 Earmold/Dome/CShell/SlimTip:Microsonic Canal Lock Dispensed By: [facility], [place] Date of Fittin04/30/2017 Left Ear: Antoine, , Color, Serial Number: Lorna Nolen [id number] SN: [id number] Color: Silver [employer] Repair Warranty: 07/20/2020 [employer] Loss and Damage Warranty: 07/20/2020 Battery Size: 13 Earmold/Dome/CShell/SlimTip: Microsonic Canal Lock Dispensed By: [facility], [place] Date of Fittin04/30/2017 Follow-Up Summary: Rosa Maria returned for routine hearing aid maintenance and tubing change. She provided an updated audiological evaluation from Dr. Diane's office on 10/08/2022. Compared to evaluation on 12/31/2018, right ear is stable and left ear showed improvement at 2 and 4 kHz. Cleaned both hearing aids and earmolds. Vacuumed microphones. Replaced tubing. A listening check demonstrated that the hearing aids are in good working order. Due to the fluctuating nature of her hearing loss, Rosa Maria did not want her hearing aids reprogrammed to her updated audio. She reported that overall she is hearing well and does not need any adjustments at the time. Paid $50.00 Recommendations: Hearing instrument maintenance in 6 months, or sooner if needed. Please contact our clinic with any questions or concerns. Diagnosis Code(s): Primary Diagnosis: H90.6 Mixed Hearing Loss, Bilateral Signature: Provider: Caridad Tate, [facility]
== END 2022-11-12 16:08 | disposition home or self-care (01) ==
LOC: HO.HAP 16:07
PROVIDERS: Visit Provider Internal Medicine
DX: Z46.1 Encounter for fitting and adjustment of hearing aid (principal); H90.6 Mixed conductive and sensorineural hearing loss, bilateral
CPT/HCPCS: 92593

== ENCOUNTER 2022-12-30 11:24 | Outpatient (REF) | payer MEDICARE, SELFPAY ==
[2022-12-30 14:17] LABS: MANUAL DIFF FLAG NO
[2022-12-30 14:30] LABS: Basophils Percent Auto 0.7 % (0-2); Eosinophils Absolute Auto 0.1 X10*3/uL (0.0-0.4); Eosinophils Percent Auto 1.4 % (0-4); Hematocrit 38.6 % (37.0-47.0); Hemoglobin 13.4 g/dl (12.0-16.0); Imm Gran Abs Auto 0.01 X10*3/uL (0.00-0.03); Imm Gran Pct Auto 0.2 % (0.0-0.4); Lymphocytes Absolute Auto 2.1 X10*3/uL (1.2-4.9); Lymphocytes Percent Auto 50.4 % (20-40); Mean Corpuscular HGB Conc 34.7 g/dl (31.0-35.0); Mean Corpuscular Hemoglobin 34.5 pg (27.0-33.0); Mean Corpuscular Volume 99.5 fL (80.0-98.0); Monocytes Absolute Auto 0.4 X10*3/uL (0.1-1.2); Monocytes Percent Auto 9.9 % (2-11); Neutrophils Absolute Auto 1.6 x10*3/uL (2.0-8.3); Neutrophils Percent Auto 37.4 % (45-73); Platelet Count 199 X10*3/uL (160-400); Red Blood Count 3.88 X10*6/uL (4.20-5.50); Red Cell Distribution Width 12.2 % (11.0-16.0); White Blood Count 4.2 X10*3/uL (4.8-10.8)
[2022-12-30 14:53] LABS: Alanine Aminotransferase 15 U/L (0-31); Albumin Level 4.2 g/dL (3.5-5.0); Alkaline Phosphatase 49 U/L (39-117); Anion Gap 11 (12-20); Aspartate Amino Transferase 22 U/L (5-31); Bilirubin Total 0.9 mg/dL (0.0-1.0); Blood Urea Nitrogen 11 mg/dL (9-16); Calcium 9.6 mg/dL (8.4-10.2); Carbon Dioxide 29 mmol/L (22-29); Chloride 104 mmol/L (96-108); Estimated Glomerular Filt Rate > 60; Glucose Random 88 mg/dL (60-115); Iron 248 mcg/dL (30-160); Percent Iron Saturation 91 % (15-50); Potassium 4.3 mmol/L (3.3-5.1); Sodium 140 mmol/L (135-145); Total Iron Binding Capacity 273 mcg/dL (228-428); Total Protein 6.7 g/dL (6.5-8.0); Unsaturated Iron Binding < 25 ug/dL
[2022-12-30 14:58] LABS: Ferritin 184 ng/mL (10-250)
== END 2022-12-30 11:25 | disposition home or self-care (01) ==
LOC: HO.10HDL 11:24
PROVIDERS: Visit Provider Internal Medicine
DX: E83.110 Hereditary hemochromatosis (principal)
CPT/HCPCS: 36415; 80053; 82728; 83540; 85025

== ENCOUNTER 2023-03-04 07:56 | Outpatient (REF) | payer MEDICARE, SELFPAY ==
[2023-03-04 08:07] LABS: MANUAL DIFF FLAG NO
[2023-03-04 08:18] LABS: Basophils Percent Auto 0.6 % (0-2); Eosinophils Absolute Auto 0.1 X10*3/uL (0.0-0.4); Eosinophils Percent Auto 3.4 % (0-4); Hematocrit 36.8 % (37.0-47.0); Hemoglobin 12.7 g/dl (12.0-16.0); Imm Gran Abs Auto 0.01 X10*3/uL (0.00-0.03); Imm Gran Pct Auto 0.3 % (0.0-0.4); Lymphocytes Absolute Auto 1.6 X10*3/uL (1.2-4.9); Lymphocytes Percent Auto 47.9 % (20-40); Mean Corpuscular HGB Conc 34.5 g/dl (31.0-35.0); Mean Corpuscular Hemoglobin 34.7 pg (27.0-33.0); Mean Corpuscular Volume 100.5 fL (80.0-98.0); Mean Platelet Volume 11.9 fL (9.4-12.3); Monocytes Absolute Auto 0.5 X10*3/uL (0.1-1.2); Monocytes Percent Auto 14.9 % (2-11); Neutrophils Absolute Auto 1.1 x10*3/uL (2.0-8.3); Neutrophils Percent Auto 32.9 % (45-73); Platelet Count 174 X10*3/uL (160-400); Red Blood Count 3.66 X10*6/uL (4.20-5.50); Red Cell Distribution Width 12.6 % (11.0-16.0); White Blood Count 3.3 X10*3/uL (4.8-10.8)
[2023-03-04 09:30] LABS: Ferritin 222 ng/mL (10-250)
[2023-03-04 09:50] LABS: Alanine Aminotransferase 12 U/L (0-31); Alkaline Phosphatase 46 U/L (39-117); Anion Gap 12 (12-20); Aspartate Amino Transferase 19 U/L (5-31); Bilirubin Total 0.6 mg/dL (0.0-1.0); Blood Urea Nitrogen 10 mg/dL (9-16); Calcium 9.6 mg/dL (8.4-10.2); Carbon Dioxide 26 mmol/L (22-29); Chloride 106 mmol/L (96-108); Estimated Glomerular Filt Rate > 60; Glucose Random 94 mg/dL (60-115); Iron 229 mcg/dL (30-160); Percent Iron Saturation 90 % (15-50); Potassium 4.1 mmol/L (3.3-5.1); Sodium 140 mmol/L (135-145); Total Iron Binding Capacity 254 mcg/dL (228-428); Total Protein 6.3 g/dL (6.5-8.0); Unsaturated Iron Binding < 25 ug/dL
== END 2023-03-04 07:57 | disposition home or self-care (01) ==
LOC: HO.LAB 07:56
PROVIDERS: PCP Internal Medicine; Visit Provider Internal Medicine
DX: Z01.818 Encounter for other preprocedural examination (principal); E83.110 Hereditary hemochromatosis; I10 Essential (primary) hypertension; K21.9 Gastro-esophageal reflux disease without esophagitis
CPT/HCPCS: 36415; 80053; 82728; 83540; 85025

== ENCOUNTER 2023-03-24 08:58 | Outpatient (REF) | payer MEDICARE, SELFPAY | END 2023-03-24 08:59 | disposition home or self-care (01) | LOC: HO.BBR 08:58 | PROVIDERS: PCP Internal Medicine; Visit Provider Internal Medicine | DX: Z13.89 Encounter for screening for other disorder (principal) ==

== ENCOUNTER 2023-04-30 07:37 | Outpatient (REF) | payer MEDICARE, SELFPAY ==
--- NOTE | ~2023-04-30 | US_ITS ---
EXAMINATION: US RETROPERITONEAL LIMITED (RENAL ONLY) CLINICAL INFORMATION: Calculus of kidney. COMPARISON: Ultrasound kidneys 09/25/2022 and 09/24/2021. CT abdomen 10/15/2021. X-ray KUB 09/22/2019 and 11/22/2015. TECHNIQUE: Real-time imaging of the kidneys. FINDINGS: RIGHT KIDNEY: 10.0 x 5.1 x 6.6 cm (SAG x AP x TRV). The kidney is normal in size, contour, and echogenicity. Renal cortical thickness is normal. No renal calculi or hydronephrosis. At the interpolar aspect, a 5.3 cm benign, simple cyst is seen. This requires no imaging follow-up. LEFT KIDNEY: 8.2 x 5.3 x 3.6 cm (SAG x AP x TRV). The kidney is normal in size, contour, and echogenicity. Renal cortical thickness is normal. No calculi or focal parenchymal lesions. No hydronephrosis. US/US renal BI IMPRESSION: Unremarkable examination. No renal calculus or hydronephrosis is seen bilaterally.
== END 2023-04-30 07:38 | disposition home or self-care (01) ==
LOC: HO.US 07:37
PROVIDERS: PCP Internal Medicine; Visit Provider Nurse Practitioner Family
DX: N20.0 Calculus of kidney (principal)
CPT/HCPCS: 76775

== ENCOUNTER 2023-04-30 09:13 | Outpatient (REF) | payer MEDICARE, SELFPAY ==
--- NOTE | ~2023-04-30 | MM_ITS ---
EXAMINATION: BONE DENSITOMETRY CLINICAL INDICATION: Screening for osteoporosis. COMPARISON: Previous BD dated 04/26/2021 and baseline BD dated 07/22/2007. TECHNIQUE: Using a [employer] DXA System (software version: 13.1) manufactured by [employer], dual-energy x-ray absorptiometry was performed of the lumbar spine and left hip. The images are of good technical quality. Summary results are attached. FINDINGS: LEFT FEMUR, NECK: Current: BMD 0.545 g/cm2, Z-score -1.3, T-score -3.5, osteoporosis. Prior: BMD 0.650 g/cm2. Baseline: BMD 0.803 g/cm2. LEFT FEMUR, TOTAL: Current: BMD 0.608 g/cm2, Z-score -1.1, T-score -3.2, osteoporosis, 17.9% decrease from previous, 33.2% decrease from baseline (<5% change is not significant). Prior: BMD 0.741 g/cm2. Baseline: BMD 0.910 g/cm2. AP SPINE L1-L2 (excluding L3 and L4): The data of L1-L4 has been changed to exclude the L3 and L4 vertebral bodies, because at these levels may cause overestimation of lumbar spine density. Current: BMD 0.921 g/cm2, Z-score -0.3, T-score -2.0, osteopenia, 11.1% decrease from previous, 19.4% decrease from baseline (<5% change is not significant). Prior: BMD 1.036 g/cm2. Baseline: BMD 1.142 g/cm2. IDENTIFIED RISK FACTORS: Early menopause, hysterectomy, osteoporosis, bilateral oophorectomy, secondary osteoporosis. HISTORY OF FRACTURE: None listed. MEDICATIONS: Vitamin D. MM/XR DEXA axial skeleton IMPRESSION: 1. DIAGNOSIS: Osteoporosis based on the lowest T-score value of -3.5 in the femoral neck applying World Health Organization criteria. 2. 10-YEAR FRACTURE RISK PREDICTION, FRAX: According to the guidelines, FRAX calculation should only be performed on patients in the osteopenia bone density category. Therefore, FRAX was not performed on this patient. 3. Treatment Recommendations: NOF guidelines recommend consideration for treatment in postmenopausal women and men age 50 and older presenting with the following: -A hip or vertebral (clinical or morphometric) fracture. -T-score less than or equal to -2.5 at the femoral neck or spine after appropriate evaluation to exclude secondary causes. -Low bone mass at the hip or spine and a 10-year fracture probability by FRAX of greater than or equal to 3% for hip fracture or greater than or equal to 20% for major osteoporotic fracture based on the [place] adapted WHO algorithm. 4. Other Recommendations: All treatment decisions require clinical judgment and consideration of individual patient factors, including patient preferences, comorbidities, previous drug use, risk factors not captured in the FRAX model (e.g. frailty, falls, vitamin D deficiency, increased bone turnover, interval significant decline in bone density) and possible under or overestimation of fracture risk by FRAX. Additional medical evaluation for secondary cause of low bone mineral density may be appropriate. FUTURE SCAN RECOMMENDATION: People with diagnosed cases of osteoporosis or at high risk for fracture should have regular bone mineral density tests. For patients eligible for Medicare, routine testing is allowed once every 2 years. The testing frequency can be increased to one year for patients who have rapidly progressing disease, those who are receiving or discontinuing medical therapy to restore bone mass, or have additional risk factors.
== END 2023-04-30 09:14 | disposition home or self-care (01) ==
LOC: HO.MAMMO 09:13
PROVIDERS: PCP Internal Medicine; Visit Provider Internal Medicine
DX: Z13.820 Encounter for screening for osteoporosis (principal); Z78.0 Asymptomatic menopausal state
CPT/HCPCS: 77080

== ENCOUNTER → 2023-04-30 09:45 | Outpatient (BNV) | payer MEDICARE, SELFPAY | PROVIDERS: PCP Internal Medicine; Visit Provider Radiology Diagnostic Radiology | DX: M81.0 Age-related osteoporosis without current pathological fracture (principal) | CPT/HCPCS: 77080 ==

== ENCOUNTER 2023-05-05 07:59 | Outpatient (REF) | payer MEDICARE, SELFPAY ==
--- NOTE | ~2023-05-05 | MM_ITS ---
EXAMINATION: MM SCREENING DIGITAL BREAST TOMOSYNTHESIS, BILATERAL CLINICAL INFORMATION: Screening. Asymptomatic. COMPARISON: Mammography: 04/29/2022, 04/26/2021, 04/20/2020, and dating back to 2011. TECHNIQUE: Digital breast tomosynthesis is performed in both the craniocaudal and mediolateral oblique views along with computer-aided detection (CAD). Synthesized 2D images are generated from the tomosynthesis. FINDINGS: There are scattered areas of fibroglandular density (ACR BI-RADS breast composition Category b). There are benign vascular calcifications in both breasts. There are no suspicious masses, suspicious grouped calcifications, or areas of architectural distortion. The parenchymal pattern is stable from prior exams. Density in the left CC projection laterally has been stable since 2012. MM/MM tomosynthesis screening BI IMPRESSION: No mammographic evidence of malignancy. Stable benign findings. ASSESSMENT: BI-RADS BI-RADS 2 - Benign Findings RECOMMENDATION: Routine annual mammography screening. 1 year F/U This examination should not preclude the clinical evaluation of a suspicious palpable abnormality. This patient's information was entered into a reminder system with a target due date for their next mammogram.
== END 2023-05-05 08:00 | disposition home or self-care (01) ==
LOC: HO.MAMMO 07:59
PROVIDERS: PCP Internal Medicine; Visit Provider Internal Medicine
DX: Z12.31 Encounter for screening mammogram for malignant neoplasm of breast (principal)
CPT/HCPCS: 77063; 77067

== ENCOUNTER → 2023-05-05 08:30 | Outpatient (BNV) | payer MEDICARE, SELFPAY | PROVIDERS: PCP Internal Medicine; Visit Provider Radiology Diagnostic Radiology | DX: Z12.31 Encounter for screening mammogram for malignant neoplasm of breast (principal) | CPT/HCPCS: 77063; 77067 ==

== ENCOUNTER 2023-05-06 11:05 | Outpatient (AMB) | payer MEDICARE, SELFPAY ==
--- NOTE | 2023-05-06 11:29 | A.OFFVIS_ITS ---
Intake Intake Visit Reasons: 6m/US(SET) Intake Note: Patient is present for ultrasound follow up kidney cyst/kidney stone/ultrasound (imaging 04/30/23) Urology Medication: Vitamin B6 Blood Thinner: none Safety Physician Required: No Accompanied by: Self / Same As Patient Allergies bee pollen [BEE STINGS] Allergy (Severe, Verified 05/06/23 21:29) ANAPHYLAXIS celecoxib [From Celebrex] Allergy (Severe, Verified 05/06/23 21:29) INTERNAL BLEEDING Medication List - Last Reconciled 05/06/23 by SANDRA Cox cholecalciferol (vitamin D3) 25 mcg PO DAILY fluticasone propionate 50 mcg/actuation sprays intranasal gabapentin 300 mg PO BEDTIME mirtazapine 30 mg PO BEDTIME multivitamin 1/2 tab orally daily; nifedipine ER 30 mg PO DAILY omeprazole 40 mg PO DAILY pyridoxine (vitamin B6) 100 mg PO DAILY 90 days ropinirole 1 mg PO BEDTIME temazepam 15 mg PO BEDTIME PRN HPI HPI Comments History of Present Illness Details Rosa Maria is a pleasant 82-year-old female 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 She presents to the office today for a follow up of her nephrolithiasis. When asked she reports to be doing well via a urological standpoint. She does however report having a recent left-sided bunionectomy. Recent renal imaging results reviewed with the patient today. Right-sided 5.3 cm benign simple cyst is seen. This requires no imaging follow-up per radiology recommendations. Unremarkable examination. No renal calculus or hydronephrosis is seen bilaterally. In office urinalysis results reviewed with the patient today. Patient denies any bothersome urinary issues or concerns at this time. She denies urinary urgency, urinary frequency, incontinence, nocturia, hematuria, dysuria, foul smelling urine, changes to urinary stream, flank pain, fever, and or chills. She is happy with her current voiding parameters. She reports to be drinking plenty of water daily and continues with vitamin B6. She otherwise offers no other issues or concerns at this time. [facility] Medical History Acid reflux History of kidney stones Renal cyst Restless leg syndrome Surgical History History of back surgery History of knee replacement Social History Alcohol intake: never Current occupational status: retired Current occupation: right handed Review of Systems Const Reports as per HPI Eyes Reports no additional complaints ENT Reports no additional complaints Card Reports no additional complaints Resp Reports no additional complaints GI Reports no additional complaints Reports as per HPI Musc Reports no additional complaints Skin/Breast Details: Fungas to left big toe following with podiatry. Neuro Reports no additional complaints Psych Reports no additional complaints Endo Reports no additional complaints Neo/Lymph Reports as per HPI Aller/Immun Reports no additional complaints Physical Exam Const General: cooperative, healthy appearing, comfortable, no acute distress, well developed, alert and awake Orientation/consciousness: patient oriented x3 Limitations: no limitations HEENT Head: Yes normal to inspection and Yes normocephalic Ears: other (bilateral hearing aides in place ) Eyes General: appearance normal, both eyes and all related structures Neck Neck: Yes normal visual inspection and Yes trachea midline Chest Chest palpation & inspection: normal inspection of the chest Resp Effort & Inspection: normal respiratory effort and able to speak in complete sentences Cardio Rate: regular rate General: Yes no CVA tenderness Back/Spine/Pelvis Back: no CVA tenderness Neuro General: patient oriented x3 Psych Appearance: grossly normal and well kempt Mental Status: mental status grossly normal Speech and movement: Normal speech and movement present and Clear speech present Affect: normal affect Attitude: cooperative Thought process: Normal thought process present Thought content: Normal thought content present Insight: Good insight present (Psych) Judgement: Good judgement present (Psych) Results AMB Urinalysis, Automated UA Leukoctes 15 Kylee/uL Last Edit by Jed Hartman on 05/06/23 11:48 UA Nitrite Last Edit by Jed Hartman on 05/06/23 11:48 UA Urobilinogen 0.2 mg/dL Last Edit by Jed Hartman on 05/06/23 11:48 UA Protein 0 mg/dL Last Edit by Jed Hartman on 05/06/23 11:48 UA pH 7.0 Last Edit by Jed Hartman on 05/06/23 11:48 UA Blood 0 Soham/uL Last Edit by Jed Hartman on 05/06/23 11:48 UA Specific [place] 1.010 Last Edit by Jed Hartman on 05/06/23 11:48 UA Ketone Negative Last Edit by Jed Hartman on 05/06/23 11:48 UA Bilirubin 0 mg/dL Last Edit by Jed Hartman on 05/06/23 11:48 UA Glucose 0 mg/dL Last Edit by Jed Hartman on 05/06/23 11:48 Results Reviewed Results Reviewed: Laboratory Last Values Urine pH (Auto) 7.0 05/06/23 11:31 Specific [place] (Auto) 1.010 05/06/23 11:31 Urine Protein (Auto) 0 mg/dL 05/06/23 11:31 Glucose (UA)(Auto) 0 mg/dL 05/06/23 11:31 Urine Ketones (Auto) Negative 05/06/23 11:31 Urine Blood (Auto) 0 Soham/uL 05/06/23 11:31 Urine Bilirubin (Auto) 0 mg/dL 05/06/23 11:31 Urine Urobilinogen (Auto) 0.2 mg/dL 05/06/23 11:31 Leukocyte Esterase (Auto) 15 Kylee/uL 05/06/23 11:31 Date of Service: 04/30/23 EXAMINATION: US RETROPERITONEAL LIMITED (RENAL ONLY) FINDINGS: RIGHT KIDNEY: 10.0 x 5.1 x 6.6 cm (SAG x AP x TRV). The kidney is normal in size, contour, and echogenicity. Renal cortical thickness is normal. No renal calculi or hydronephrosis. At the interpolar aspect, a 5.3 cm benign, simple cyst is seen. This requires no imaging follow-up. LEFT KIDNEY: 8.2 x 5.3 x 3.6 cm (SAG x AP x TRV). The kidney is normal in size, contour, and echogenicity. Renal cortical thickness is normal. No calculi or focal parenchymal lesions. No hydronephrosis. IMPRESSION: Unremarkable examination. No renal calculus or hydronephrosis is seen bilaterally. Assessment & Plan Assessment & Plan (1) Nephrolithiasis: Code(s): N20.0 - Calculus of kidney (2) Renal cyst: Code(s): N28.1 - Cyst of kidney, acquired Plan In office urinalysis results reviewed with the patient today; as noted above. Recent renal imaging reviewed with the patient; stable; will continue with surveillance imaging Patient denies any urological issues or concerns at this time. Continue vitamin B6 daily. Discussed, encouraged, and instructed to continue drinking adequate amount of daily fluid. Renal ultrasound in one year Follow-up in 1 year with imaging to be completed prior; or sooner with any issues, concerns, and or questions. Orders: Orders US renal BI 364 Days N20.0 - Calculus of kidney, N28.1 - Cyst of kidney, acquired AMB Urinalysis Automated Today Z13.9 - Encounter for screening, unspecified Patient Instructions: The patient had an opportunity to ask questions regarding the treatment plan. All questions were answered. Physical exam, labs, and imaging were discussed and reviewed in detail. As well as risks, benefits, and discussion of treatment choices. No major barriers to understanding were identified. The patient expressed understanding and agreement with the above treatment plan. The patient was made aware they should contact our office by phone for worsening of their current condition, the appearance of new symptoms, or with any questions or concerns. Compliance is encouraged with any medications and follow up testing that is ordered. It is a privilege to be allowed the opportunity to participate in? your urological care.? Again, if you have any questions or concerns If you have any questions or concerns please do not hesitate to contact me. The office is [phone]. This note is constructed using voice recognition software. While every effort has been made to ensure accuracy piping design specialist errors may have been included. Yours sincerely, SANDRA Cox Coding Level of Care Code Est Pt Level 3 (14806) Diagnoses Nephrolithiasis N20.0 Renal cyst N28.1
== END 2023-05-06 12:01 | disposition home or self-care (01) ==
PROVIDERS: PCP Internal Medicine; Visit Provider Nurse Practitioner Family
DX: N20.0 Calculus of kidney (principal); N28.1 Cyst of kidney, acquired
CPT/HCPCS: 99213

== ENCOUNTER → 2023-05-06 11:05 | Outpatient (BNVA) | payer SELFPAY | PROVIDERS: Visit Provider Nurse Practitioner Family | DX: N28.1 Cyst of kidney, acquired (principal); N20.0 Calculus of kidney | CPT/HCPCS: 81003; 99212 ==

== ENCOUNTER 2023-05-29 11:28 | Outpatient (REF) | payer MEDICARE, SELFPAY ==
[2023-05-29 13:13] LABS: MANUAL DIFF FLAG NO
[2023-05-29 13:19] LABS: Basophils Percent Auto 0.3 % (0-2); Eosinophils Percent Auto 0.3 % (0-4); Imm Gran Abs Auto 0.04 X10*3/uL (0.00-0.03); Imm Gran Pct Auto 0.6 % (0.0-0.4); Lymphocytes Absolute Auto 1.2 X10*3/uL (1.2-4.9); Lymphocytes Percent Auto 16.7 % (20-40); Mean Corpuscular HGB Conc 34.3 g/dl (31.0-35.0); Mean Corpuscular Hemoglobin 34.4 pg (27.0-33.0); Mean Corpuscular Volume 100.3 fL (80.0-98.0); Mean Platelet Volume 11.6 fL (9.4-12.3); Monocytes Percent Auto 14.7 % (2-11); Neutrophils Absolute Auto 4.6 x10*3/uL (2.0-8.3); Neutrophils Percent Auto 67.4 % (45-73); Platelet Count 204 X10*3/uL (160-400); Red Blood Count 3.49 X10*6/uL (4.20-5.50); White Blood Count 6.9 X10*3/uL (4.8-10.8)
[2023-05-29 13:49] LABS: Alanine Aminotransferase 32 U/L (0-31); Albumin Level 3.9 g/dL (3.5-5.0); Alkaline Phosphatase 75 U/L (39-117); Anion Gap 14 (12-20); Aspartate Amino Transferase 43 U/L (5-31); Bilirubin Total 0.7 mg/dL (0.0-1.0); Blood Urea Nitrogen 14 mg/dL (9-16); C Reactive Protein 8.39 mg/dL (< or = 0.50); Calcium 9.7 mg/dL (8.4-10.2); Carbon Dioxide 26 mmol/L (22-29); Chloride 97 mmol/L (96-108); Estimated Glomerular Filt Rate > 60; Glucose Random 93 mg/dL (60-115); Potassium 4.2 mmol/L (3.3-5.1); Sodium 133 mmol/L (135-145); Total Protein 7.2 g/dL (6.5-8.0)
[2023-05-29 13:56] LABS: Thyroid Stimulating Hormone 3.85 uIU/mL (0.32-4.0)
[2023-05-29 14:05] LABS: Vitamin B12 823 pg/mL (200-900)
== END 2023-05-29 11:29 | disposition home or self-care (01) ==
LOC: HO.10HDL 11:28
PROVIDERS: Visit Provider Internal Medicine
DX: R53.83 Other fatigue (principal); I10 Essential (primary) hypertension; K57.90 Diverticulosis of intestine, part unspecified, without perforation or abscess without bleeding
CPT/HCPCS: 36415; 80053; 82607; 84439; 84443; 85025; 86140

== ENCOUNTER 2023-06-02 07:59 | Outpatient (AMB) | payer MEDICARE, SELFPAY ==
--- NOTE | 2023-06-02 08:00 | MHC.PC.OV ---
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
--- NOTE | 2023-06-02 08:02 | AM.OFFWIN_ITS ---
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 Diarrhea Intake Note: pt is here for c/o back pain radiates down left leg with diarrhea Patient Tobacco Use Status: Never used Tobacco Allergies bee pollen [BEE STINGS] Allergy (Severe, Verified 06/02/23 08:16) ANAPHYLAXIS celecoxib [From Celebrex] Allergy (Severe, Verified 06/02/23 08:16) INTERNAL BLEEDING Medication List - Last Reconciled 06/02/23 by Steve Esteban MD cholecalciferol (vitamin D3) 25 mcg PO DAILY fluticasone propionate 50 mcg/actuation sprays intranasal gabapentin 300 mg PO BEDTIME mirtazapine 30 mg PO BEDTIME multivitamin 1/2 tab orally daily; nifedipine ER 30 mg PO DAILY omeprazole 40 mg PO DAILY pyridoxine (vitamin B6) 100 mg PO DAILY 90 days ropinirole 1 mg PO BEDTIME temazepam 15 mg PO BEDTIME PRN Do you need a note to return to daycare/school/sports/work: No 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 She is accompanied by a female special education case manager. Patient is complaining of low back pain on the left side since Friday. Does not recall any fall or injury. Pain is in the lower back and radiating up into the hip. She walks without any assistance. Reports increased frequency of urination which is unrelated to these symptoms. Pain is worsened on bending and turning sideways. She has history of back surgery in the past. [facility] Medical History Renal cyst History of kidney stones Restless leg syndrome Acid reflux Surgical History History of knee replacement History of back surgery Social History Alcohol intake: never Patient Tobacco Use Status: Never used Tobacco Current occupational status: retired Current occupation: right handed Physical Exam Vital Signs: Last Vital Signs Temp 97.1 F 06/02/23 08:05 Pulse 76 06/02/23 08:05 BP 160/82 H 06/02/23 08:05 Pulse Ox 97 06/02/23 08:05 Oxygen Delivery Method Room Air 06/02/23 08:05 BMI result Body Mass Index 29.3 Const General: cooperative and healthy appearing Nutritional Appearance: well nourished Orientation/consciousness: patient oriented x3 Limitations: no limitations HEENT Head: Yes normal to inspection Eyes General: appearance normal, both eyes and all related structures Neck Neck: Yes normal visual inspection Chest Chest palpation & inspection: normal palpation of entire chest wall Resp Effort & Inspection: normal respiratory effort Neuro General: patient oriented x3 Results AMB Urinalysis, Automated UA Leukoctes 500 Kylee/uL Last Edit by Miller Almendarez CMA on 06/02/23 08:2 6 UA Nitrite Positive Last Edit by Miller Almendarez CMA on 06/02/23 08:26 UA Urobilinogen 0.2 mg/dL Last Edit by Miller Almendarez CMA on 06/02/23 08 :26 UA Protein 15 mg/dL Last Edit by Miller Almendarez CMA on 06/02/23 08:26 UA pH 7.5 Last Edit by Miller Almendarez CMA on 06/02/23 08:26 UA Blood 25 Soham/uL Last Edit by Miller Almendarez CMA on 06/02/23 08:26 UA Specific [place] 1.010 Last Edit by Miller Almendarez CMA on 06/02/23 08:26 UA Ketone Negative Last Edit by Miller Almendarez CMA on 06/02/23 08:26 UA Bilirubin 0 mg/dL Last Edit by Miller Almendarez CMA on 06/02/23 08:26 UA Glucose 0 mg/dL Last Edit by Miller Almendarez CMA on 06/02/23 08:26 Assessment & Plan Assessment & Plan (1) Lower thoracic back pain: Code(s): M54.6 - Pain in thoracic spine Plan: Urinalysis reviewed by me. White blood cells seen. Possible infection also exists . Symptoms are mostly muscular in etiology. Anti-inflammatory and muscle relaxant have been called in. Physical therapy has been scheduled. Patient was advised to ambulate to prevent stiffness. Patient was advised to hold the temazepam when she is taking the cyclobenzaprine. Also she was notified that her blood pressure is slightly elevated pain could be due to the pain symptoms. Orders: Orders AMB Urinalysis Automated Today Z13.9 - Encounter for screening, unspecified Medications: New sulfamethoxazole-trimethoprim 800-160 mg (Bactrim DS) 1 tab PO BID 10 tabs 0RF 5 days meloxicam 15 mg PO DAILY 14 tabs 0RF cyclobenzaprine 10 mg PO BEDTIME 14 tabs 0RF Coding Level of Care Code New Pt Level 4 (84099) Diagnoses Lower thoracic back pain M54.6
[2023-06-02 08:05] VITALS: BP 160/82; PULSE 76; TEMP 36.2; O2SAT 97; BMI 29.3
== END 2023-06-02 09:02 | disposition home or self-care (01) ==
PROVIDERS: PCP Internal Medicine; Visit Provider Internal Medicine
DX: R35.0 Frequency of micturition (principal); M54.6 Pain in thoracic spine
CPT/HCPCS: 81003; 99204

== ENCOUNTER 2023-08-15 06:57 | Outpatient (REF) | payer MEDICARE, SELFPAY ==
[2023-08-15 07:20] LABS: MANUAL DIFF FLAG NO
[2023-08-15 07:58] LABS: Basophils Percent Auto 0.6 % (0-2); Eosinophils Absolute Auto 0.1 X10*3/uL (0.0-0.4); Eosinophils Percent Auto 2.8 % (0-4); Hematocrit 39.6 % (37.0-47.0); Hemoglobin 13.5 g/dl (12.0-16.0); Lymphocytes Absolute Auto 1.4 X10*3/uL (1.2-4.9); Lymphocytes Percent Auto 44.3 % (20-40); Mean Corpuscular HGB Conc 34.1 g/dl (31.0-35.0); Mean Corpuscular Hemoglobin 34.5 pg (27.0-33.0); Mean Corpuscular Volume 101.3 fL (80.0-98.0); Mean Platelet Volume 11.8 fL (9.4-12.3); Monocytes Absolute Auto 0.4 X10*3/uL (0.1-1.2); Monocytes Percent Auto 10.8 % (2-11); Neutrophils Absolute Auto 1.3 x10*3/uL (2.0-8.3); Neutrophils Percent Auto 41.5 % (45-73); Platelet Count 205 X10*3/uL (160-400); Red Blood Count 3.91 X10*6/uL (4.20-5.50); Red Cell Distribution Width 12.8 % (11.0-16.0); White Blood Count 3.2 X10*3/uL (4.8-10.8)
[2023-08-15 08:47] LABS: Alanine Aminotransferase 15 U/L (0-31); Albumin Level 4.1 g/dL (3.5-5.0); Alkaline Phosphatase 64 U/L (39-117); Anion Gap 11 (12-20); Aspartate Amino Transferase 23 U/L (5-31); Bilirubin Total 0.6 mg/dL (0.0-1.0); Blood Urea Nitrogen 14 mg/dL (9-16); Calcium 9.8 mg/dL (8.4-10.2); Carbon Dioxide 29 mmol/L (22-29); Chloride 109 mmol/L (96-108); Cholesterol 164 mg/dL (<200); Estimated Glomerular Filt Rate > 60; Glucose Random 88 mg/dL (60-115); Iron 233 mcg/dL (30-160); Percent Iron Saturation 90 % (15-50); Potassium 4.2 mmol/L (3.3-5.1); Sodium 145 mmol/L (135-145); Total Iron Binding Capacity 258 mcg/dL (228-428); Total Protein 7.1 g/dL (6.5-8.0); Unsaturated Iron Binding < 25 ug/dL
[2023-08-15 08:59] LABS: Free T4 (Free Thyroxine) 0.74 ng/dL (0.71-1.85); Vitamin D 25-OH Total 69.5 ng/mL (>30)
== END 2023-08-15 06:58 | disposition home or self-care (01) ==
LOC: HO.LAB 06:57
PROVIDERS: PCP Internal Medicine; Visit Provider Internal Medicine
DX: I10 Essential (primary) hypertension (principal); M81.0 Age-related osteoporosis without current pathological fracture; E03.9 Hypothyroidism, unspecified; E83.119 Hemochromatosis, unspecified
CPT/HCPCS: 36415; 80053; 82306; 82465; 83540; 84439; 84443; 85025

== ENCOUNTER 2023-09-16 06:59 | Outpatient (REF) | payer MEDICARE, SELFPAY | END 2023-09-16 07:00 | disposition home or self-care (01) | LOC: HO.LAB 06:59 | PROVIDERS: PCP Internal Medicine; Visit Provider Internal Medicine | DX: Z13.89 Encounter for screening for other disorder (principal) ==

== ENCOUNTER 2023-11-14 07:09 | Outpatient (REF) | payer MEDICARE, SELFPAY ==
[2023-11-14 07:31] LABS: MANUAL DIFF FLAG NO
[2023-11-14 08:07] LABS: Basophils Percent Auto 0.9 % (0-2); Eosinophils Absolute Auto 0.2 X10*3/uL (0.0-0.4); Eosinophils Percent Auto 3.4 % (0-4); Hematocrit 38.8 % (37.0-47.0); Hemoglobin 13.2 g/dl (12.0-16.0); Lymphocytes Absolute Auto 2.3 X10*3/uL (1.2-4.9); Lymphocytes Percent Auto 52.4 % (20-40); Mean Corpuscular Hemoglobin 34.3 pg (27.0-33.0); Mean Corpuscular Volume 100.8 fL (80.0-98.0); Mean Platelet Volume 11.7 fL (9.4-12.3); Monocytes Absolute Auto 0.4 X10*3/uL (0.1-1.2); Monocytes Percent Auto 9.7 % (2-11); Neutrophils Absolute Auto 1.5 x10*3/uL (2.0-8.3); Neutrophils Percent Auto 33.6 % (45-73); Platelet Count 217 X10*3/uL (160-400); Red Blood Count 3.85 X10*6/uL (4.20-5.50); Red Cell Distribution Width 13.2 % (11.0-16.0); White Blood Count 4.4 X10*3/uL (4.8-10.8)
[2023-11-14 08:41] LABS: Anion Gap 13 (12-20); Blood Urea Nitrogen 16 mg/dL (9-16); Calcium 9.5 mg/dL (8.4-10.2); Carbon Dioxide 27 mmol/L (22-29); Chloride 108 mmol/L (96-108); Estimated Glomerular Filt Rate > 60; Glucose Random 82 mg/dL (60-115); Iron 240 mcg/dL (30-160); Percent Iron Saturation 91 % (15-50); Potassium 3.6 mmol/L (3.3-5.1); Sodium 144 mmol/L (135-145); Total Iron Binding Capacity 265 mcg/dL (228-428); Unsaturated Iron Binding < 25 ug/dL
[2023-11-14 09:01] LABS: Ferritin 225 ng/mL (10-250)
== END 2023-11-14 07:10 | disposition home or self-care (01) ==
LOC: HO.LAB 07:09
PROVIDERS: PCP Internal Medicine; Visit Provider Internal Medicine
DX: E83.119 Hemochromatosis, unspecified (principal); I10 Essential (primary) hypertension; K21.9 Gastro-esophageal reflux disease without esophagitis
CPT/HCPCS: 36415; 80048; 82728; 83540; 85025

== ENCOUNTER 2024-03-08 06:54 | Outpatient (REF) | payer MEDICARE, SELFPAY ==
[2024-03-08 07:11] LABS: MANUAL DIFF FLAG NO
[2024-03-08 08:29] LABS: Basophils Percent Auto 0.9 % (0-2); Eosinophils Absolute Auto 0.1 X10*3/uL (0.0-0.4); Eosinophils Percent Auto 3.7 % (0-4); Hematocrit 37.3 % (37.0-47.0); Hemoglobin 12.8 g/dl (12.0-16.0); Lymphocytes Absolute Auto 1.5 X10*3/uL (1.2-4.9); Lymphocytes Percent Auto 44.3 % (20-40); Mean Corpuscular HGB Conc 34.3 g/dl (31.0-35.0); Mean Corpuscular Hemoglobin 35.5 pg (27.0-33.0); Mean Corpuscular Volume 103.3 fL (80.0-98.0); Mean Platelet Volume 12.5 fL (9.4-12.3); Monocytes Absolute Auto 0.4 X10*3/uL (0.1-1.2); Monocytes Percent Auto 10.9 % (2-11); Neutrophils Absolute Auto 1.4 x10*3/uL (2.0-8.3); Neutrophils Percent Auto 40.2 % (45-73); Platelet Count 202 X10*3/uL (160-400); Red Blood Count 3.61 X10*6/uL (4.20-5.50); Red Cell Distribution Width 12.6 % (11.0-16.0); White Blood Count 3.5 X10*3/uL (4.8-10.8)
[2024-03-08 08:55] LABS: Cholesterol 138 mg/dL (<200); HDL Cholesterol 43 mg/dL (>40); LDL Cholesterol Calculated 74 mg/dL (<100); Triglycerides 106 mg/dL (<150)
[2024-03-08 09:12] LABS: Alanine Aminotransferase 14 U/L (0-31); Alkaline Phosphatase 47 U/L (39-117); Anion Gap 12 (12-20); Aspartate Amino Transferase 21 U/L (5-31); Bilirubin Total 0.5 mg/dL (0.0-1.0); Blood Urea Nitrogen 14 mg/dL (9-16); Calcium 9.6 mg/dL (8.4-10.2); Carbon Dioxide 26 mmol/L (22-29); Chloride 104 mmol/L (96-108); Estimated Glomerular Filt Rate > 60; Glucose Random 91 mg/dL (60-115); Iron 227 mcg/dL (30-160); Percent Iron Saturation 90 % (15-50); Potassium 3.9 mmol/L (3.3-5.1); Sodium 138 mmol/L (135-145); Total Iron Binding Capacity 252 mcg/dL (228-428); Total Protein 6.8 g/dL (6.5-8.0); Unsaturated Iron Binding < 25 ug/dL
[2024-03-08 09:28] LABS: Ferritin 254 ng/mL (10-250)
== END 2024-03-08 06:55 | disposition home or self-care (01) ==
LOC: HO.LAB 06:54
PROVIDERS: Absent Provider Internal Medicine Medical Oncology; PCP Internal Medicine; Visit Provider Internal Medicine
DX: E83.110 Hereditary hemochromatosis (principal)
CPT/HCPCS: 36415; 80053; 80061; 82728; 83540; 85025

== ENCOUNTER 2024-04-26 10:55 | Outpatient (REF) | payer MEDICARE, SELFPAY ==
--- NOTE | ~2024-04-26 | US_ITS ---
EXAMINATION: US RETROPERITONEAL COMPLETE (RENAL) CLINICAL INFORMATION: Calculus of kidney. COMPARISON: 04/30/2023 TECHNIQUE: Real-time imaging of the kidneys and bladder. Limited visualization due to bowel gas. FINDINGS: RIGHT KIDNEY: 10.1 x 6.5 x 8.3 cm (SAG x AP x TRV). No hydronephrosis. No renal calculi. Renal cortical thickness is normal. Limited visualization. 5.3 cm right midpole cyst, previously 5.3 cm, with benign features. There is no indication for additional imaging at this time. LEFT KIDNEY: 9.0 x 4.9 x 4.8 cm (SAG x AP x TRV). No hydronephrosis. No renal calculi. Renal cortical thickness is normal. Limited visualization. US/US renal BI IMPRESSION: No hydronephrosis. No renal calculi. Electronically signed by: Yvonne Esteves MD 05/12/2024 05:17 AM EDT
== END 2024-04-26 10:56 | disposition home or self-care (01) ==
LOC: HO.US 10:55
PROVIDERS: PCP Internal Medicine; Visit Provider Nurse Practitioner Family
DX: N20.0 Calculus of kidney (principal); N28.1 Cyst of kidney, acquired
CPT/HCPCS: 76775

== ENCOUNTER 2024-05-05 10:13 | Outpatient (AMB) | payer MEDICARE, SELFPAY ==
--- NOTE | 2024-05-05 10:16 | A.OFFVIS_ITS ---
Intake Visit Reasons: 1yr follow up/US(set) Intake Note: Patient is present for ultrasound follow up kidney cyst, kidney stone, and ultrasound results Imaging Completed: 04/26/24 Urology Medication: Vitamin B6 Blood Thinner: none Logistical Engineer Required: No Accompanied by: Self / Same As Patient Allergies bee pollen [BEE STINGS] Allergy (Severe, Verified 05/05/24 10:35) ANAPHYLAXIS celecoxib [From Celebrex] Allergy (Severe, Verified 05/05/24 10:35) INTERNAL BLEEDING Medication List - Last Reconciled 05/05/24 by SANDRA Cox cholecalciferol (vitamin D3) 25 mcg PO DAILY cyclobenzaprine 10 mg PO BEDTIME fluticasone propionate 50 mcg/actuation sprays intranasal gabapentin 300 mg PO BEDTIME meloxicam 15 mg PO DAILY mirtazapine 30 mg PO BEDTIME multivitamin 1/2 tab orally daily; nifedipine ER 30 mg PO DAILY omeprazole 40 mg PO DAILY pyridoxine (vitamin B6) 100 mg PO DAILY 90 days ropinirole 1 mg PO BEDTIME temazepam 15 mg PO BEDTIME PRN HPI Comments Details: Rosa Maria is a pleasant 83-year-old female 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 She presents to the office today for a follow up of her nephrolithiasis. When asked she reports to be doing and feeling well. She currently denies any bothersome urinary issues or concerns. Recent renal imaging results reviewed with the patient today. Bilateral kidneys with no hydronephrosis or renal calculi. 5.3 cm mid pole cyst with benign features per radiology report. There is no indication for follow-up imaging at this time. In office urinalysis results reviewed with the patient today. Patient denies any bothersome urinary issues or concerns at this time. She denies urinary urgency, urinary frequency, incontinence, nocturia, hematuria, dysuria, foul smelling urine, changes to urinary stream, flank pain, fever, and or chills. She is happy with her current voiding parameters. She reports to be drinking plenty of water daily and continues with vitamin B6. She discusses following up with PCP every 4 months and oncology for her history of hemochromatosis. She otherwise offers no other issues or concerns at this time. [facility] Medical History Renal cyst History of kidney stones Restless leg syndrome Acid reflux Surgical History History of knee replacement History of back surgery Social History Alcohol intake: never Patient Tobacco Use Status: Never used Tobacco Current occupational status: retired Current occupation: right handed Review of Systems Const All systems reviewed & are unremarkable except as noted in HPI and below Physical Exam Const General: cooperative, healthy appearing, comfortable, no acute distress, well developed, alert and awake Orientation/consciousness: patient oriented x3 Limitations: no limitations HEENT Head: Yes normal to inspection, Yes normocephalic and Yes atraumatic Ears: hearing grossly normal bilaterally Eyes General: appearance normal, both eyes and all related structures Neck Neck: Yes normal visual inspection and Yes trachea midline Chest Chest palpation & inspection: normal inspection of the chest Resp Effort & Inspection: normal respiratory effort and able to speak in complete sentences Cardio Rate: regular rate GI Inspection: Yes normal to inspection General: Yes no CVA tenderness Back/Spine/Pelvis Back: no CVA tenderness Skin General skin exam: no rashes or lesions noted Neuro General: patient oriented x3 Extrem General: Yes normal to inspection Psych Appearance: grossly normal and well kempt Mental Status: mental status grossly normal Speech and movement: Normal speech and movement present and Clear speech present Affect: normal affect Attitude: cooperative Thought process: Normal thought process present Thought content: Normal thought content present Insight: Fair insight present (Psych) Judgement: Fair judgement present (Psych) Results AMB Urinalysis, Automated UA Leukoctes 15 Kylee/uL Last Edit by Jed Hartman on 05/05/24 10:29 UA Nitrite Last Edit by Jed Hartman on 05/05/24 10:29 UA Urobilinogen 0.2 mg/dL Last Edit by Jed Hartman on 05/05/24 10:29 UA Protein 0 mg/dL Last Edit by Jed Hartman on 05/05/24 10:29 UA pH 6.5 Last Edit by Jed Hartman on 05/05/24 10:29 UA Blood 0 Soham/uL Last Edit by Jed Hartman on 05/05/24 10:29 UA Specific [place] 1.010 Last Edit by Jed Breshabbir on 05/05/24 10:29 UA Ketone Negative Last Edit by Jed Zayrashabbir on 05/05/24 10:29 UA Bilirubin 0 mg/dL Last Edit by Jed Zayrashabbir on 05/05/24 10:29 UA Glucose 0 mg/dL Last Edit by Jed Hartman on 05/05/24 10:29 Results Reviewed Results Reviewed: Laboratory Last Values Urine pH (Auto) 6.5 05/05/24 10:23 Specific [place] (Auto) 1.010 05/05/24 10:23 Urine Protein (Auto) 0 mg/dL 05/05/24 10:23 Glucose (UA)(Auto) 0 mg/dL 05/05/24 10:23 Urine Ketones (Auto) Negative 05/05/24 10:23 Urine Blood (Auto) 0 Soham/uL 05/05/24 10:23 Urine Bilirubin (Auto) 0 mg/dL 05/05/24 10:23 Urine Urobilinogen (Auto) 0.2 mg/dL 05/05/24 10:23 Leukocyte Esterase (Auto) 15 Kylee/uL 05/05/24 10:23 Date of Service: 04/26/24 EXAMINATION: US RETROPERITONEAL COMPLETE (RENAL) FINDINGS: RIGHT KIDNEY: 10.1 x 6.5 x 8.3 cm (SAG x AP x TRV). No hydronephrosis. No renal calculi. Renal cortical thickness is normal. Limited visualization. 5.3 cm right midpole cyst, previously 5.3 cm, with benign features. There is no indication for additional imaging at this time. LEFT KIDNEY: 9.0 x 4.9 x 4.8 cm (SAG x AP x TRV). No hydronephrosis. No renal calculi. Renal cortical thickness is normal. Limited visualization. IMPRESSION: No hydronephrosis. No renal calculi. Assessment & Plan Assessment & Plan (1) Nephrolithiasis: Code(s): N20.0 - Calculus of kidney Category: Medical (2) Renal cyst: Code(s): N28.1 - Cyst of kidney, acquired Category: Medical Plan In office urinalysis results reviewed with the patient today; as noted above. Recent renal imaging reviewed with the patient; stable; will continue with surveillance imaging Patient denies any urological issues or concerns at this time. Continue vitamin B6 daily. Discussed, encouraged, and instructed to continue drinking adequate amount of daily fluid. Renal ultrasound in one year Follow-up in 1 year with imaging to be completed prior; or sooner with any issues, concerns, and or questions. Orders: Orders US renal BI 1 Year N20.0 - Calculus of kidney AMB Urinalysis Automated 05/05/24 Z13.9 - Encounter for screening, unspecified US renal BI 1 Year N20.0 - Calculus of kidney, N28.1 - Cyst of kidney, acquired Patient Instructions: The patient had an opportunity to ask questions regarding the treatment plan. All questions were answered. Physical exam, labs, and imaging were discussed and reviewed in detail. As well as risks, benefits, and discussion of treatment choices. No major barriers to understanding were identified. The patient expressed understanding and agreement with the above treatment plan. The patient was made aware they should contact our office by phone for worsening of their current condition, the appearance of new symptoms, or with any questions or concerns. Compliance is encouraged with any medications and follow up testing that is ordered. It is a privilege to be allowed the opportunity to participate in? your urological care.? Again, if you have any questions or concerns If you have any questions or concerns please do not hesitate to contact me. The office is [phone]. This note is constructed using voice recognition software. While every effort has been made to ensure accuracy athletic field custodian errors may have been included. Yours sincerely, SANDRA Cox Coding Level of Care Code Est Pt Level 3 (53959) Complex EM visit Add On G2211 Diagnoses Nephrolithiasis N20.0 Renal cyst N28.1
== END 2024-05-05 10:37 | disposition home or self-care (01) ==
PROVIDERS: PCP Internal Medicine; Visit Provider Nurse Practitioner Family
DX: N20.0 Calculus of kidney (principal); N28.1 Cyst of kidney, acquired
CPT/HCPCS: 99213; G2211

== ENCOUNTER → 2024-05-05 10:13 | Outpatient (BNVA) | payer MEDICARE, SELFPAY | PROVIDERS: PCP Internal Medicine; Visit Provider Nurse Practitioner Family | DX: N28.1 Cyst of kidney, acquired (principal); Z87.442 Personal history of urinary calculi | CPT/HCPCS: 81003; 99212 ==

== ENCOUNTER 2024-05-11 07:55 | Outpatient (REF) | payer MEDICARE, SELFPAY ==
--- NOTE | ~2024-05-11 | MM_ITS ---
EXAMINATION: MM SCREENING DIGITAL BREAST TOMOSYNTHESIS, BILATERAL CLINICAL INFORMATION: Screening. Asymptomatic. COMPARISON: Mammography: Comparison is made with available priors TECHNIQUE: Digital breast mammography with tomosynthesis is performed in both the craniocaudal and mediolateral oblique views along with computer-aided detection (CAD). FINDINGS: There are scattered areas of fibroglandular density (ACR BI-RADS breast composition Category b). There are no significant masses, abnormal calcifications, or other abnormalities. MM/MM tomosynthesis screening BI IMPRESSION: No mammographic evidence of malignancy. ASSESSMENT: BI-RADS BI-RADS 1 - Negative RECOMMENDATION: Routine annual mammography screening. 1 year F/U This examination should not preclude the clinical evaluation of a suspicious palpable abnormality. This patient's information was entered into a reminder system with a target due date for their next mammogram. Electronically signed by: Rosmery Gaines DO 05/29/2024 10:38 PM EDT
== END 2024-05-11 07:56 | disposition home or self-care (01) ==
LOC: HO.MAMMO 07:55
PROVIDERS: PCP Internal Medicine; Visit Provider Internal Medicine
DX: Z12.31 Encounter for screening mammogram for malignant neoplasm of breast (principal)
CPT/HCPCS: 77063; 77067

== ENCOUNTER → 2024-05-11 08:15 | Outpatient (BNV) | payer MEDICARE, SELFPAY | PROVIDERS: PCP Internal Medicine; Visit Provider Internal Medicine | DX: Z12.31 Encounter for screening mammogram for malignant neoplasm of breast (principal) | CPT/HCPCS: 77063; 77067 ==

== ENCOUNTER 2024-05-25 11:06 | Outpatient (REF) | payer MEDICARE, SELFPAY ==
[2024-05-25 11:37] LABS: IDNOW Serial# 08D9AD1C; Strep A Nucleic Acid Negative (Negative)
[2024-05-25 12:21] LABS: Influenza A PCR NEGATIVE (Negative); Influenza B PCR NEGATIVE (Negative); Resp Syncy Virus RNA Qual PCR NEGATIVE (Negative); SARS COV2 PCR INHOUSE POSITIVE (Negative)
== END 2024-05-25 11:07 | disposition home or self-care (01) ==
LOC: HO.LNP 11:06
PROVIDERS: Visit Provider Internal Medicine
DX: R05.9 Cough, unspecified (principal); R09.89 Other specified symptoms and signs involving the circulatory and respiratory systems; R53.83 Other fatigue; J02.9 Acute pharyngitis, unspecified
CPT/HCPCS: 0241U; 87651

== ENCOUNTER 2024-08-10 06:35 | Outpatient (REF) | payer MEDICARE, SELFPAY ==
[2024-08-10 06:54] LABS: MANUAL DIFF FLAG NO
[2024-08-10 07:38] LABS: Basophils Percent Auto 0.8 % (0-2); Eosinophils Absolute Auto 0.1 X10*3/uL (0.0-0.4); Hematocrit 38.4 % (37.0-47.0); Hemoglobin 13.3 g/dl (12.0-16.0); Imm Gran Abs Auto 0.04 X10*3/uL (0.00-0.03); Lymphocytes Absolute Auto 1.8 X10*3/uL (1.2-4.9); Lymphocytes Percent Auto 44.5 % (20-40); Mean Corpuscular HGB Conc 34.6 g/dl (31.0-35.0); Mean Corpuscular Volume 101.1 fL (80.0-98.0); Mean Platelet Volume 11.8 fL (9.4-12.3); Monocytes Absolute Auto 0.4 X10*3/uL (0.1-1.2); Monocytes Percent Auto 10.8 % (2-11); Neutrophils Absolute Auto 1.6 x10*3/uL (2.0-8.3); Neutrophils Percent Auto 40.9 % (45-73); Platelet Count 190 X10*3/uL (160-400); Red Cell Distribution Width 12.8 % (11.0-16.0)
[2024-08-10 08:08] LABS: Ferritin 246 ng/mL (10-250)
[2024-08-10 08:10] LABS: Alanine Aminotransferase 20 U/L (0-31); Albumin Level 4.2 g/dL (3.5-5.0); Alkaline Phosphatase 52 U/L (39-117); Anion Gap 11 (12-20); Aspartate Amino Transferase 25 U/L (5-31); Bilirubin Total 0.7 mg/dL (0.0-1.0); Blood Urea Nitrogen 17 mg/dL (9-16); Calcium 9.9 mg/dL (8.4-10.2); Carbon Dioxide 28 mmol/L (22-29); Chloride 106 mmol/L (96-108); Cholesterol 156 mg/dL (<200); Estimated Glomerular Filt Rate 55; Glucose Fasting 93 mg/dL (60-99); HDL Cholesterol 46 mg/dL (>40); Iron 247 mcg/dL (30-160); LDL Cholesterol Calculated 93 mg/dL (<100); Percent Iron Saturation 91 % (15-50); Potassium 4.3 mmol/L (3.3-5.1); Sodium 141 mmol/L (135-145); Total Iron Binding Capacity 272 mcg/dL (228-428); Total Protein 7.3 g/dL (6.5-8.0); Triglycerides 87 mg/dL (<150); Unsaturated Iron Binding < 25 ug/dL
== END 2024-08-10 06:36 | disposition home or self-care (01) ==
LOC: HO.LAB 06:35
PROVIDERS: PCP Internal Medicine; Visit Provider Internal Medicine
DX: I10 Essential (primary) hypertension (principal); K21.9 Gastro-esophageal reflux disease without esophagitis; E83.119 Hemochromatosis, unspecified
CPT/HCPCS: 36415; 80053; 80061; 82728; 83540; 85025

== ENCOUNTER 2024-10-15 10:23 | Outpatient (REF) | payer MEDICARE, SELFPAY ==
[2024-10-15 10:45] LABS: MANUAL DIFF FLAG NO
--- OUTSIDE RECORDS SUMMARY | 2024-10-15 11:29 | XMS_ITS ---
[facility] Address [address] [place] [address] Care Team Providers Care Artificial Breeding Technician Name Role Phone Erlin Brown MD Primary Care Provider Julietha Di Thompson Unavailable [phone] Allergies Allergen (clinical drug ingredient) Drug/Non Drug Allergy documented on EMR Reaction Allergy Type Onset Date Status celecoxib Celebrex Unknown Drug Allergy Active Bee Sting Unknown Allergy Active REASON FOR VISIT Painful nail(s) aggravated by shoes causing difficulty standing/walking Medications Medication SIG (Take, Route, Frequency, Duration) Notes Start Date End Date Status Keflex 500 MG 1 capsule Orally fara ry 12 hrs for 5 days 04/01/2016 Not-Taking Physical Therapy . . . 2-3x/week for 3- 4 weeks 05/30/2016 Not-Taking Keflex 500 MG 1 capsule Orally fara ry 12 hrs for 7 days 10/18/2020 Not-Taking oxyCODONE HCl 5 MG 0.5-1 tablet as need ed Orally every 4-6 hrs for 5 days 03/18/2023 Not-Taking aleve Not-Taking Vitamin B6 Active Remeron 30 MG 1 tablet at bedtime Orally Active Neurontin 300 MG 1 capsule Orally Active Multivitamin Active Vitamin D 25 MCG (1000 UT) 1 tablet Orally Once a day Active Restoril 15 MG 1 capsule at bedtime as needed Orally Once a day Active Procardia XL 30 MG 1 tablet Orally Once a day for 30 day(s) Active PriLOSEC OTC 20 MG 2 tablets Orally Onc e a day Active Social History Tobacco Use: Social History Observation Description Date Details (start date - stop date) Never Smoker NA - NA Tobacco Use/Smoking Question Answer Notes Are you a: nonsmoker Additional Findings: Tobacco Non-User Current no n-smoker Tobacco use other than smoking: Question Answer Notes Are you an other tobacco user? No Vital Signs Height 5 ft 1 in in 08/03/2024 Weight 147 lbs 08/03/2024 BMI 27.77 kg/m2 08/03/2024 Encounters Encounter Location Date Provider Diagnosis [facility] [address] [address] 08/03/2024 Di Casillas Pain in right toe(s) M79.674 ; Onychomycosis B35.1 and Pain in left toe(s) M79.675 Assessments Encounter Date Diagnosis (ICD Code) Assessment Notes Treatment Notes Treatment Clinical Notes Section Notes 08/03/2024 Pain in right toe(s) (ICD-10 - M79.674) 08/03/2024 Onychomycosis (ICD-10 - B35.1) 08/03/2024 Pain in left toe(s) (ICD-10 - M79.675) Plan Of Treatment Next Appt Details Follow Up: 2 Months, Reason: Provider Name:Di gray, 10/19/2024 11:30:00 AM, [address] [place] [address], [phone], Procedure Notes * Category Sub-Category Detail Notes Debride Nail 6-10 Nail debridement Performance o f this nail treatment by a nonprofessional would put this patients foot and overall health at risk. Therefore, debridement to affected nail(s), as described in exam, was performed extensively to reduce/remove overall nail length, girth, thickness, subungual debris, and necrotic tissue, by manual and/or electrical means through the use of a nail nipper and/or dremel-type profile grinder, to a more viable healthy nail plate or bed tissue 6-10 nails in total. Silver nitrate was used for any petechial bleeding as necessary. Definitive antifungal treatment options, both pharmaceutical and surgical, have been reviewed and discussed with the patient. The patient solely prefers the use of intermittent/as needed professional debridement services for their nail condition and understands the need for additional periodic treatments to maintain effectiveness in symptomatic relief - 10286 Progress Notes * Karson HAYSOB:1940 (84 yo F)Acc No.[id number]:08/03/2024 Progress Note Patient:Rosa Maria ANGULO Provider:?Di Casillas DPM :1940???Age:84 Y???Sex:Female D ate:08/03/2024 Address:[address] [place] [address] [place], [id number] Pcp:Erlin Brown MD Subjective: * Chief Complaints: * ???Painful nail(s) aggravate d by shoes causing difficulty standing/walking * HPI: ???Painful Nails:?Pt States Last PCP Visit:?Date:?06/01/2024 * ROS:?General/Constitutional:?Nausea?denies.?Vomiting?denies.?Hunger Thirst?denies.?Loss appetite?denies.?Chills?denies.?Fatigue?denies.?Fever?denies.?Night Sweats?denies.?Unexplained weight loss?denies.?Unexplained weight gain?denies.?HEENTM:?Dentures?denies.?Dizziness?denies.?Glasses/contacts?admits.?Retinopathy?de nies.?Blurred/double vision?denies.?TMJ?denies.?Discharge/drainage?denies.?Implants?denies.?Sore throat?denies.?Dental implants?denies.?Hard of hearing ?admits.?Difficulty chewing/swallowing/speaking?denies.?Nose bleeds?denies.?Sore mouth?denies.?Respiratory:?On Oxygen?denies.?Pneumonia/pleurisy?denies.?Bronchitis?denies.?Emphysema?denies.?C oughing?denies.?Cough blood?denies.?Shortness of breath?denies.?Wheezing?denies.?Cardiovascular:?Pacemaker?denies.?MVP?denies.?WPW?denies.?CHF?denies.?Heart attack?denies.?Septal defect?denies.?Rapid beat?denies.?Chest pain ?denies.?Atrial Fib.?denies.?Murmur/Palpitations?denies.?Gastrointestinal:?Hemorrhoids?denies.?Stomach/Abdominal pain?denies.?Dark blood stool?denies.?Irritable bowel ?denies.?Constipation?denies.?Diarrhea?denies.?Hematology:?Swelling?denies.?Clots?denies.?Varicose Veins?denies.?Bruising?denies.?Bleeding problem?denies.?Genitourinary:?Blood urine?denies.?Frequent/Painfu/urination/bladder control?denies.?Kidney stones?denies.?Infection (UTI)?denies.?Nephropathy?denies.?sex trans dis (STD)?denies.?Prostate?denies.?Musculoskeletal:?Hammertoes?denies.?Bunions?denies.?Back Pain?denies.?Muscle Cramps/ Resting?denies.?Muscle cramps / walking?denies.?Generalized aches and pains?denies.?Weakness?denies.?Integ.:?Purcell?denies.?Scars?denies.?Corns/calluses?denies.?Ingrown nails?denies.?Painful nails?denies.?Open Sores?denies.?Rashes?denies.?Neurologic:?Difficulty sleeping?denies.?Brain disorder?denies.?Numbness?denies.?Balance trouble?denies.?Confusion?denies.?Fainting/blackouts?denies.?Tingling?denies.?Tr emors?denies.? * Medical History:? * Surgical History:?hysterecto my 1993back surgery 2009bilateral vein 1974hammer toes knee replacement 2002 2011back 2009cataracts 2009Lithotrispy, Kidney 2019R hand 02/2022Total excision 5th Met head Left foot P/B 03/19/2023 * Hospitalization/Major Diagno stic Procedure:?2 ear surgeries 1964transfusions 1974 * Family History:?Mother: dece ased, diagnosed with Other malignant neoplasm of unspecified site, Diabetic - NIDDM, Family history of arthritis.?Father: , diagnosed with Diabetic - NIDDM.?Siblings: , Sisters - from liver cancer.? * Social History:?Tobacco Use:?Tobacco Use/Smoking?Are you a:?nonsmoker ?Additional Findings: Tobacco Non-User?Current non-smoker ?Tobacco use other than smoking?Are you an other tobacco user??No * Medications:?TakingPriLOSEC OTC 20 MG Tablet Delayed Release 2 tablets Orally Once a day Procardia XL 30 MG Tablet Extended Release 24 Hour 1 tablet Orally Once a day Restoril 15 MG Capsule 1 capsule at bedtime as needed Orally Once a day Neurontin 300 MG Capsule 1 capsule Orally Remeron 30 MG Tablet 1 tablet at bedtime Orally Vitamin B6 Vitamin D 25 MCG (1000 UT) Tablet 1 tablet Orally Once a day Multivitamin Taking PriLOSEC OTC 20 MG Tablet Delayed Release 2 tablets Orally Once a day Taking Procardia XL 30 MG Tablet Extended Release 24 Hour 1 tablet Orally Once a day Taking Restoril 15 MG Capsule 1 capsule at bedtime as needed Orally Once a day Taking Neurontin 300 MG Capsule 1 capsule Orally Taking Remeron 30 MG Tablet 1 tablet at bedtime Orally Taking Vitamin B6 Taking Vitamin D 25 MCG (1000 UT) Tablet 1 tablet Orally Once a day Taking Multivitamin Not-Taking/PRNaleve oxyCODONE HCl 5 MG Tablet 0.5-1 tablet as needed Orally every 4-6 hrs Keflex 500 MG Capsule 1 capsule Orally every 12 hrs Physical Therapy . . . . 2-3x/week Keflex 500 MG Capsule 1 capsule Orally every 12 hrs Medication List reviewed and reconciled with the patientNot-Taking/PRN aleve Not-Taking/PRN oxyCODONE HCl 5 MG Tablet 0.5-1 tablet as needed Orally every 4-6 hrs Not-Taking/PRN Keflex 500 MG Capsule 1 capsule Orally every 12 hrs Not-Taking/PRN Physical Therapy . . . . 2-3x/week Not-Taking/PRN Keflex 500 MG Capsule 1 capsule Orally every 12 hrs Medication List reviewed and reconciled with the patient * Allergies:?Celebrex: Allergy Bee Sting: Allergyyes[Allergies Verified] Objective: * Vitals:?Ht: 5 ft 1 in, Wt: 1 47, BMI: 27.77, Shoe size: 8.5, Wt-k.68 kg. * Examination: ???Nails: ?NAILS are:?Elongated, overgrown, dystrophic, lytic, greater than 3mm thick, discolored and friable with crumbly malodorous subungual debris, with pain on palpation, 1-5 B/L.? Assessment: * Assessment: 1.?Pain in right toe(s) - M7 9.674???2.?Onychomycosis - B35.1 (Primary)???3.?Pain in left toe(s) - M79.675??? Plan: * Treatment: * Procedures:?Debride Nail 6-10:?Nail debridement?Performance of this nail treatment by a nonprofessional would put this patients foot and overall health at risk. Therefore, debridement to affected nail(s), as described in exam, was performed extensively to reduce/remove overall nail length, girth, thickness, subungual debris, and necrotic tissue, by manual and/or electrical means through the use of a nail nipper and/or dremel-type profile grinder, to a more viable healthy nail plate or bed tissue 6-10 nails in total. Silver nitrate was used for any petechial bleeding as necessary. Definitive antifungal treatment options, both pharmaceutical and surgical, have been reviewed and discussed with the patient. The patient solely prefers the use of intermittent/as needed professional debridement services for their nail condition and understands the need for additional periodic treatments to maintain effectiveness in symptomatic relief - 32280.? * Procedure Codes:?73420 DEBRI DE NAIL, 6 OR MORE * Follow Up:?2 Months * Images: * Sign off status: Completed true * Provider:?Di Casillas DPM Date:? Generated for Jensen sparks/Lilliana/Irina on:?10/15/2024 11:29 AM EST History and Physical Notes * HPI (History of Present Illness) Category Sub-Category Detail Notes Category Not es Painful Nails Pt States Last PCP Visit: Date:: 06/01/2024 Examination Category Sub-Category Detail Notes Category Not es Nails NAILS are: Elongated, overg rown, dystrophic, lytic, greater than 3mm thick, discolored and friable with crumbly malodorous subungual debris, with pain on palpation, 1-5 B/L
--- OUTSIDE RECORDS SUMMARY | 2024-10-15 11:29 | XMS_ITS | Patient Health Record ---
[facility] Organization [facility] Address [address] [facility] [place] [address] Care Team Providers Care Gang Sawyer Name Role Phone Erlin Brown MD Primary Care Provider iD Winston Unavailable [phone] Allergies Allergen (clinical drug ingredient) Drug/Non Drug Allergy documented on EMR Reaction Allergy Type Onset Date Status celecoxib Celebrex Unknown Drug Allergy Active Bee Sting Unknown Allergy Active Reason For Referral No Information Medications Medication SIG (Take, Route, Frequency, Duration) Notes Start Date End Date Status Vitamin B6 Active Remeron 30 MG 1 tablet at bedtime Orally Active Neurontin 300 MG 1 capsule Orally Active Restoril 15 MG 1 capsule at bedtime as needed Orally Once a day Active Procardia XL 30 MG 1 tablet Orally Once a day for 30 day(s) Active Keflex 500 MG 1 capsule Orally fara ry 12 hrs for 5 days 04/01/2016 Not-Taking PriLOSEC OTC 20 MG 2 tablets Orally Onc e a day Active Physical Therapy . . . 2-3x/week for 3- 4 weeks 05/30/2016 Not-Taking Keflex 500 MG 1 capsule Orally fara ry 12 hrs for 7 days 10/18/2020 Not-Taking oxyCODONE HCl 5 MG 0.5-1 tablet as need ed Orally every 4-6 hrs for 5 days 03/18/2023 Not-Taking aleve Not-Taking Multivitamin Active Vitamin D 25 MCG (1000 UT) 1 tablet Orally Once a day Active Immunizations Vaccine Route Administration Date Status Comme nts COVID-19 Moderna Vaccine Unknown 05/09/2022 Administered 1st 10/24/20,11/21/20 07/05/21 Influenza Unknown 05/09/2022 Administered Social History Tobacco Use: Social History Observation Description Date Details (start date - stop date) Never Smoker NA - NA Tobacco Use/Smoking Question Answer Notes Are you a: nonsmoker Additional Findings: Tobacco Non-User Current no n-smoker Alcohol Screen Question Answer Notes Did you have a drink containing alcohol in the p ast year? No Points 0 Interpretation Negative Tobacco use other than smoking: Question Answer Notes Are you an other tobacco user? No Problems Problem Type SNOMED Code ICD Code Onset Dates Problem Status W/U Status Risk Notes Problem Chronic ulcer of foot (891570871) Non-pressure chronic ulcer of other part of left foot with fat layer exposed (L97.522) Active confirmed Problem Non-pressure chronic ulcer of other part of left foot limited to breakdown of skin (L97.521) Active confirmed Problem Acquired hammer toe of right foot (1724242895837 105) Other hammer toe(s) (acquired), right foot (M20.41) Active confirmed Problem Acquired hammer toe of left foot (5311240152003 103) Other hammer toe(s) (acquired), left foot (M20.42) Active confirmed Vital Signs Blood pressure diastolic 78 mm Hg 05/19/2024 Height 5 ft 1 in in 08/03/2024 Blood pressure systolic 132 mm Hg 05/19/2024 Weight 147 lbs 08/03/2024 BMI 27.77 kg/m2 08/03/2024 Encounters Encounter Location Date Provider Diagnosis [address] [address] 12/19/2023 [facility] [place] Pain in left toe(s) M79.675 ; Tinea unguium B35.1 and Pain in right toe(s) M79.[address] [address] 02/27/2024 [facility] [place] Pain in left toe(s) M79.675 ; Tinea unguium B35.1 and Pain in right toe(s) M79.[address] [address] 05/19/2024 [facility] [place] Tinea unguium B35.1 ; Metatarsalgia, left foot M77.42 ; Pain in left toe(s) M79.675 ; Pain in right toe(s) M79.674 ; Pain in left foot M79.672 ; Pain in left ankle and joints of left foot M25.572 and Bursitis of intermetatarsal bursa of left foot M77.52 [facility] [address] [place] [address] 08/03/2024 [facility] [place] Pain in right toe(s) M79.674 ; Onychomycosis B35.1 and Pain in left toe(s) M79.675 Assessments Encounter Date Diagnosis (ICD Code) Assessment Notes Treatment Notes Treatment Clinical Notes Section Notes 12/19/2023 Tinea unguium (ICD-10 - B35.1) 12/19/2023 Pain in left toe(s) (ICD-10 - M79.675) 02/27/2024 Pain in left toe(s) (ICD-10 - M79.675) 05/19/2024 Tinea unguium (ICD-10 - B35.1) 05/19/2024 Metatarsalgia, left foot (ICD-10 - M77.42) 08/03/2024 Pain in right toe(s) (ICD-10 - M79.674) 08/03/2024 Onychomycosis (ICD-10 - B35.1) 08/03/2024 Pain in left toe(s) (ICD-10 - M79.675) 05/19/2024 Pain in left toe(s) (ICD-10 - M79.675) 02/27/2024 Tinea unguium (ICD-10 - B35.1) 12/19/2023 Pain in right toe(s) (ICD-10 - M79.674) 02/27/2024 Pain in right toe(s) (ICD-10 - M79.674) 05/19/2024 Pain in right toe(s) (ICD-10 - M79.674) 05/19/2024 Pain in left foot (ICD-10 - M79.672) 05/19/2024 Pain in left ankle and joints of left foot (ICD-10 - M25.572) 05/19/2024 Bursitis of intermetatarsal bursa of left foot (ICD-10 - M77.52) Plan Of Treatment Pending Test Test Name Order Date X ray : Foot, left 2V 04/01/2016 X ray : Foot, right 2V 04/01/2016 X ray : Foot, left 3V 07/26/2021 X ray : Foot, left 3V 10/23/2022 X ray : Foot, left 3V 02/26/2023 X ray : Foot, left 3V 03/25/2023 62470-Flxgzqbh Plate 04/01/2016 70185- Debride <25 sq cm 04/17/2016 [id number] SKIN/TISSUE 10/02/2022 69436, V2061-OQCDX/INJECT, JOINT/BURSA 1 09/25/2020 Next Appt Details Provider Name:Di gray, 10/19/2024 11:30:00 AM, [address] [place] [address], [address], Insurance Providers Payer Name Payer Address Payer Phone Subscriber Number Group Number Insured Name Patient Relationship to Insured Coverage Start Date Coverage End Date [facility] Medicare Complete [address] [address] [place] [address] [id number] Rosa Maria Colunga Self - patient is the insured Medical (General) History Medical History History ICD Code Arthritis Cataracts Depression High blood pressure Reflux Scarlet fever Measles Mumps Chicken pox psoriasis (hands) joint,bone implants, screws hemochromatosis transfusions Surgical History Surgery Date(Month/Year) hysterectomy 1992 back surgery 2009 bilateral vein 1974 hammer toes knee replacement 2001 2010 back 2009 cataracts 2009 Lithotrispy, Kidney 2019 R hand 02/2022 Total excision 5th Met head Left foot P/ B 03/19/2023 Hospitalization History Reason Date(Month/Year) transfusions 1974 2 ear surgeries 1964
--- OUTSIDE RECORDS SUMMARY | 2024-10-15 11:29 | XMS_ITS ---
Author Organization Nikhil Kidd III, MD Address [address] [place] [address] [address] [place] [address] Care Team Providers Care Felt Machine Mechanic Name Role Phone Erlin Brown MD Primary Care Provider Nikhil Carranza Unavailable [phone] Allergies Allergen (clinical drug ingredient) Drug/Non Drug [...] Date Provider Diagnosis Nikhil Kidd III, MD [address] [place] [address] [place] [address] 03/17/2024 Nikhil Kidd Hereditary hemochromatosis E83.110 ; [...] Year, Reason: O V Provider Name:Nikhil Kidd, 03/17/2025 09:00:00 AM, [address] [place] [address] , [place] [address], [place], [address], Progress Notes * JUSTIN HAYS ADOB:[birth year] (83 yo F)Acc No.[id number]:03/17/2024 Progress Notes Patient:?JUSTIN HAYS A Provider:?Nikhil Kidd MD :1940???Age:83 Y???Sex:Female D ate:03/17/2024 Address:[address] [place] [address], [place] [facility] Pcp:Erlin Brown MD Subjective: * Chief Complaints: * ???HemochromatosisHypertensi onHearing lossGERD * HPI: ???COVID-19 Screening:? She returns for ongoing management of an elevated ferritin and a history of hereditary hemochromatosis. There was no sign of cardiomyopathy, pancreatic insufficiency or hepatic cirrhosis on today's examination. Her ferritin is mildly elevated was elected to continue to follow this without phlebotomy. ?Questions?Have you experienced fever, chills, cough, sore throat, shortness of breath, difficulty breathing, muscle aches, loss of taste or smell??No ?Have you been exposed to the virus within the last 10 days??No ?Have you travelled internationally in the last 10 days??No ?Have you been exposed to COVID-19 in the past??No * ROS:?General/Constitutional:?pain?only normal aches and pains.?Chills?denies.?Fatigue?admits.?Fever?denies.?ENT:?Decreased hearing?mild.?Respiratory:?Cough?denies.?Cardiovascular:?Chest pain with exertion?denies.?Dyspnea on exertion?denies.?Shortness of breath?denies.?Gastrointestinal:?Constipation?occasional.?Decreased appetite?denies.?Diarrhea?denies.?Heartburn?denies.?Nausea?denies.?Rectal bleeding?denies.?Vomiting?denies.?Hematology:?bruising?denies.?petechiae?denies.?Swollen glands?none have been noted.?Genitourinary:?Frequent urination?once a night.?Musculoskeletal:?Muscle aches?denies.?Painful joints?denies.?Sciatica?denies.?Weakness?denies.?Skin:?Itching?denies.?Rash?denies.?Skin lesion(s)?denies.?Neurologic:?Difficulty speaking?denies.?Dizziness?denies.?Headache?denies.?Low back pain?denies.?Psychiatric:?Depressed mood?which is mild.? * Medical History:? * Surgical History:?left knee replacement 2002right knee replacement 2011back surgery 2009TAH/BSO 1993upper endoscopy, antral ulcer 2003left knee arthroscopy 1985left myringotomy Tendon repair, Right hand 02/2022 * Hospitalization/Major Diagno stic Procedure:?Denies Past Hospitalization * Family History:?Father: dece ased 62 yrs, diagnosed with CVD.?Mother: 89 yrs, diagnosed with CVD.?Siblings: .?2 sister(s) - healthy. 2 son(s) , 1 daughter(s) - healthy. .? her passed 06/12/2019. 2 sisters passed from Liver Cancer and they both had Hemochromatosis. 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 * Medications:?TakingB6 Natura l 100 MG Tablet 1 tablet Orally Once [...] reviewed and reconciled with the patient * Allergies:?Celebrexno[Allerg ies Verified] Objective: * Vitals:?Ht: 63, Wt:155, BMI: 27.45, BP:141/69, HR:72, Temp:98.0, Wt-k.31. * ???Past Orders: Lab:Ferritin * Order Date 03/08/2024 03/04/2023 10/07/2022 Ferritin 254?H (Ref Range: 10-250 ng/mL) 222 (Ref Range: 10-250 ng/mL) 209 (Ref Range: 10-250 ng/mL) * Lab:IRON PROFILE * Order Date 03/08/2024 03/04/2023 10/07/2022 Iron 227?H (Ref Range: 30-160 mcg/dL) 229?H (Ref Range: 30-160 mcg/dL) 242?H (Ref Range: 30-160 mcg/dL) Total Iron Binding Capacity 252 (Ref Range: 228-428 mcg/dL) 254 (Ref Range: 228-428 mcg/dL) 267 (Ref Range: 228-428 mcg/dL) Percent Iron Saturation 90?H (Ref Range: 15-50 %) 90?H (Ref Range: 15-50 %) 91?H (Ref Range: 15-50 %) Unsaturated Iron Binding [...] Total Protein 6.8 (Ref Range: 6.5-8.0 g/dL) 6.3?L (Ref Range: 6.5-8.0 g/dL) 6.7 (Ref Range: [...] 9-16 mg/dL) 10 (Ref Range: 9-16 mg/dL) 17?H (Ref Range: 9-16 mg/dL) Creatinine 0.87 (Ref [...] Date 03/08/2024 03/04/2023 10/07/2022 White Blood Count 3.5?L (Ref Range: 4.8-10.8 X10*3/uL) 3.3?L (Ref Range: 4.8-10.8 X10*3/uL) 4.4?L (Ref Range: 4.8-10.8 X10*3/uL) Red Blood Count 3.61?L (Ref Range: 4.20-5.50 X10*6/uL) 3.66?L (Ref Range: 4.20-5.50 X10*6/uL) 3.63?L (Ref Range: 4.20-5.50 X10*6/uL) Hemoglobin 12.8 (Ref Range: 12.0-16.0 g/dl) 12.7 (Ref Range: 12.0-16.0 g/dl) 12.4 (Ref Range: 12.0-16.0 g/dl) Hematocrit 37.3 (Ref Range: 37.0-47.0 %) 36.8?L (Ref Range: 37.0-47.0 %) 36.5?L (Ref Range: 37.0-47.0 %) Mean Corpuscular Volume 103.3?H (Ref Range: 80.0-98.0 fL) 100.5?H (Ref Range: 80.0-98.0 fL) 100.6?H (Ref Range: 80.0-98.0 fL) Mean Corpuscular Hemoglobin 35.5?H (Ref Range: 27.0-33.0 pg) 34.7?H (Ref Range: 27.0-33.0 pg) 34.2?H (Ref Range: 27.0-33.0 pg) Mean Corpuscular HGB Conc 34.3 (Ref Range: 31.0-35.0 g/dl) 34.5 (Ref Range: 31.0-35.0 g/dl) 34.0 (Ref Range: 31.0-35.0 g/dl) Red Cell Distribution Width 12.6 (Ref Range: 11.0-16.0 %) 12.6 (Ref Range: 11.0-16.0 %) 12.9 (Ref Range: 11.0-16.0 %) Platelet Count 202 (Ref Range: 160-400 X10*3/uL) 174 (Ref Range: 160-400 X10*3/uL) 189 (Ref Range: 160-400 X10*3/uL) Mean Platelet Volume 12.5?H (Ref Range: 9.4-12.3 fL) 11.9 (Ref Range: 9.4-12.3 fL) 12.5?H (Ref Range: 9.4-12.3 fL) Neutrophils Percent Auto 40.2?L (Ref Range: 45-73 %) 32.9?L (Ref Range: 45-73 %) 35.1?L (Ref Range: 45-73 %) Imm Gran Pct Auto 0.0 (Ref Range: 0.0-0.4 %) 0.3 (Ref Range: 0.0-0.4 %) 0.2 (Ref Range: 0.0-0.4 %) Lymphocytes Percent Auto 44.3?H (Ref Range: 20-40 %) 47.9?H (Ref Range: 20-40 %) 47.1?H (Ref Range: 20-40 %) Monocytes Percent Auto 10.9 (Ref Range: 2-11 %) 14.9?H (Ref Range: 2-11 %) 8.9 (Ref Range: 2-11 %) Eosinophils Percent Auto 3.7 (Ref Range: 0-4 %) 3.4 (Ref Range: 0-4 %) 8.0?H (Ref Range: 0-4 %) Basophils Percent Auto 0.9 (Ref Range: 0-2 %) 0.6 (Ref Range: 0-2 %) 0.7 (Ref Range: 0-2 %) NRBC Pct Auto 0.0 (Ref Range: 0.0-0.2 /100WBC) 0.0 (Ref Range: 0.0-0.2 /100WBC) 0.0 (Ref Range: 0.0-0.2 /100WBC) Neutrophils Absolute Auto 1.4?L (Ref Range: 2.0-8.3 x10*3/uL) 1.1?L (Ref Range: 2.0-8.3 x10*3/uL) 1.5?L (Ref Range: 2.0-8.3 x10*3/uL) Imm Gran Abs [...] - 03/08/2024) (Collection Date - 03/08/2024) ?ValueReference Range?Voktzxnrelgkc797<150 - mg/dL ?Tfjobvufque948<200 - mg/dL?LDL Cholesterol Aqbdwoxvja02<100 - mg/dL?HDL Edaugcibeub35>40 - mg/dL * Examination: ???General Examination: ?GENERAL APPEARANCE:?pleasant, well nourished, well developed, in no acute distress, calm and relaxed , overweight , woman.?HEAD:?atraumatic, normocephalic.?EYES:?eomi, perrla, anicteric, conjugate.?EARS:?normal.?NOSE:?septum intact.?ORAL CAVITY:?normal, unremarkable.?NECK/THYROID:?no jugular venous distention, no carotid bruit, thyroid normal.?LYMPH NODES:?no enlarged lymph nodes,spleen normal.?SKIN:?no suspicious lesions, anicteric.?HEART:?no clicks, gallops, murmurs, or rubs, regular rhythm, S1, S2 normal, no s3, or vascular bruits.?LUNGS:?clear to auscultation .?BREASTS:??no masses palpable bilaterally.?ABDOMEN:?bowel sounds normal, no ascites, no organomegaly, no mass , overweight.?RECTAL EXAM:?not examined.?MUSCULOSKELETAL:?extremities unremarkable, no clubbing, cyanosis or edema.?PERIPHERAL PULSES:?normal.?NEUROLOGIC:?alert and oriented, cranial nerves 2-12 grossly intact, deep tendon reflexes 2+ symmetrical, motor strength normal upper and lower extremities, sensory exam intact.?PSYCH:?alert, oriented.? Assessment: * Assessment: 1.?Hereditary hemochromatosi s - E83.110 (Primary), Her ferritin level is 254. Observation will continue. The iron level is 227.?2.?Overweight - E66.3, Her body mass index is 27. She has lost 6 pounds since her last visit. Her nutritional status is excellent.?3.?Essential hypertension - I10, Her blood pressure was elevated today. She was referred back to primary care for treatment.?4.?Osteoarthritis of both knees, unspecified osteoarthritis type - M17.0, She has had bilateral knee replacements and is doing well.?5.?Other depression - F32.89, She is very stated over the loss of her recently. She seems to be received but does not seem depressed.? Plan: * Treatment: 2.?Overweight?LAB: PROFILE, RANDOM (COMPREHENSIVE METABOLIC) ?LAB: CBC WITH AUTO DIFF ?LAB: Ferritin 3.?Others? Continue B6 Natural Tablet, 100 MG, 1 tablet, Orally, Once a day.?? * Procedure Codes:? * Preventive Medicine:? ??Counseling:?Care goal follow-up plan:?Counseling for abnormal BMI given?Yes ?Above Normal BMI Follow-up?Dietary management education, guidance, and counseling, Dietary needs education, Exercise promotion: strength training, Exercise promotion: stretching, Feeding regime, Giving encouragement to exercise, Lifestyle education regarding diet, Nutrition / feeding management, Nutrition therapy, Prescribed activity/exercise education, Prescribed diet education, Prescribed dietary intake, Special diet education, Weight monitoring , Intervention, Order not done: Medical or Other reason not done * Follow Up:?1 Year (Reason: O V) * Images: * Sign off status: Completed true * Provider:?Nikhil Kidd MD Date:?03/08 Generated for Printi ng/Lilliana/eTransmitting on:?10/15/2024 11:28 AM EST History and Physical Notes * HPI (History of Present Illness) Category Sub-Category Detail Notes COVID-19 Screening Questions Have you had any new onset fever, chills, cough, congestion, sore throat, shortness of breath, muscle aches?: No Have you been exposed to the virus withi n the last 10 days?: No Have you travelled internationally in [facility] last 10 days?: No Have [...]
--- OUTSIDE RECORDS SUMMARY | 2024-10-15 11:29 | XMS_ITS ---
Author Organization Nikhil Kidd III, MD Address [address] [place] [address] Care Team Providers Care Cognos Report Developer Name Role Phone Erlin Brown MD Primary Care Provider Unavaila Nikhil Muñoz [phone] REASON FOR VISIT Follow Up Encounters Encounter Location Date Provider Diagnosis Nikhil Kidd III, MD [address] [place] [address] [place] [address] 04/15/2023 Nikhil Kidd Plan Of Treatment Next Appt Details Provider Name:Nikhil Kidd, 03/17/2025 09:00:00 AM, [address] [place] [address] [address], [place], [address], Progress Notes * JUSTIN HAYS ADOB:[birth year] (84 yo F)Acc No.[id number]:04/15/2023 Progress Notes Patient:?JUSTIN HAYS Cornelio Provider:?Nikhil Kidd MD :1940???Age:82 Y???Sex:Female D ate:04/15/2023 Address:[address] [place], [place] [id number] Pcp:Erlin Brown MD Subjective: * Chief Complaints: * ???1. Follow Up. * Medical History:? Objective: * Vitals:? Assessment: Plan: * Treatment: * Images: * The named appointment provid er may or may not be the originator of this progress note, and it is not deemed complete until electronically signed by the appointment provider. Sign off status: Pending * Provider:?Nikhil Kidd MD Date:?04/2023 Generated for Jensen sparks/iLlliana/Irina on:?10/15/2024 11:28 AM EST
--- OUTSIDE RECORDS SUMMARY | 2024-10-15 11:29 | XMS_ITS ---
Author Organization [facility] Address [address] [facility] [place] [address] Care Team Providers Care Boilermaker'S Assistant Name Role Phone Erlin Brown MD Primary Care Provider Unavaila Di Thompson Unavailable [phone] Allergies Allergen (clinical drug ingredient) Drug/Non Drug Allergy documented on EMR Reaction Allergy Type Onset Date Status celecoxib Celebrex Unknown Drug Allergy Active Bee Sting Unknown Allergy Active REASON FOR VISIT Painful nail(s) aggrevated by shoes causing difficulty standing/walking, Foot pain Medications Medication SIG (Take, Route, Frequency, Duration) [...] 5 days 03/18/2023 Not-Taking aleve Not-Taking Vitamin D 25 MCG (1000 UT) 1 tablet Orally Once a day Active Vitamin B6 Active Remeron 30 MG 1 tablet at bedtime Orally Active Neurontin 300 MG 1 capsule Orally Active Multivitamin Active Restoril 15 MG 1 capsule at [...] Signs Height 5 ft 1 in in 05/19/2024 Weight 150 lbs 05/19/2024 BMI 28.34 kg/m2 05/19/2024 Blood pressure systolic 132 mm Hg 05/19/20 24 Blood pressure diastolic 78 mm Hg 024 Encounters Encounter Location Date Provider Diagnosis [facility] [address] [address] 05/19/2024 Di Casillas Tinea unguium B35.1 ; Metatarsalgia, left foot M77.42 ; Pain in left toe(s) M79.675 ; Pain in right toe(s) M79.674 ; Pain in left foot M79.672 ; Pain in left ankle and joints of left foot M25.572 and Bursitis of intermetatarsal bursa of left foot M77.52 Assessments Encounter Date Diagnosis (ICD Code) Assessment Notes Treatment Notes Treatment Clinical Notes Section Notes 05/19/2024 Tinea unguium (ICD-10 - B35.1) 05/19/2024 Metatarsalgia, left foot (ICD-10 - M77.42) 05/19/2024 Pain in left toe(s) (ICD-10 - M79.675) 05/19/2024 Pain in right toe(s) (ICD-10 - M79.674) 05/19/2024 Pain in left foot (ICD-10 - M79.672) 05/19/2024 Pain in left ankle and joints of left foot (ICD-10 - M25.572) 05/19/2024 Bursitis of intermetatarsal bursa of left foot (ICD-10 - M77.52) Plan Of Treatment Next Appt Details Follow Up: 2 Months, Reason: Provider Name:Di gray, 10/19/2024 11:30:00 AM, [address] [place] [address], [id number], Procedure Notes * Category Sub-Category Detail Notes Debride Nail 6-10 Nail debridement Nail debridem ent performed extensively to reduce/remove overall nail length and girth, subungual debris, and necrotic tissue, by manual and electrical means with use of a nail nipper and/or dremel, to more viable healthy nail plate or bed tissue 6-10. Silver nitrate used for any petechial bleeding as necessary. Patient chooses, no pharmaceutical tx (69618) Progress Notes * Karson HAYSOB:1940 (83 yo F)Acc No.[id number]:05/19/2024 Progress Note Patient:?Rosa Maria Hays Provider:?Di Casillas DPM :1940???Age:83 Y???Sex:Female D ate:05/19/2024 Address:[address] [place] [address] [id number] Pcp:Erlin Brown MD Subjective: * Chief Complaints: * ???Painful nail(s) aggrevate d by shoes causing difficulty standing/walkingFoot pain * HPI: ???Painful Nails:?Pt States Last PCP Visit:?Date:?03/01/2024 ???Foot Pain:?Location:?Bottom, Forefoot, LEFT.?Course:?intermittent.?Aggravated:?especially barefoot , standing.?Treatments:?rest/alter normal daily activity.? * ROS:?General/Constitutional:?Nausea?denies, denies.?Vomiting?denies, denies.?Hunger Thirst?denies, denies.?Loss appetite?denies, denies.?Chills?denies, denies.?Fatigue?denies, denies.?Fever?denies, denies.?Night Sweats denies, denies.?Unexplained weight loss?denies, denies.?Unexplained weight gain?denies, denies.?HEENTM:?Dentures?denies, denies.?Dizziness?denies, denies.?Glasses/contacts?admits, admits.?Retinopathy?denies, denies.?Blurred/double vision?denies, denies.?TMJ?denies, denies.?Discharge/drainage?denies, denies.?Implants?denies, denies.?Sore throat?denies, denies.?Dental implants?denies, denies.?Hard of hearing ?admits, admits.?Difficulty chewing/swallowing/speaking?denies, denies.?Nose bleeds?denies, denies.?Sore mouth?denies, denies.?Respiratory:?On Oxygen?denies, denies.?Pneumonia/pleurisy?denies, denies.?Bronchitis?denies, denies.?Emphysema?denies, denies.?Coughing?denies, denies.?Cough blood?denies, denies.?Shortness of breath?denies, denies.?Wheezing?denies, denies.?Cardiovascular:?Pacemaker?denies, denies.?MVP?denies, denies.?WPW?denies, denies.?CHF?denies, denies.?Heart attack?denies, denies.?Septal defect?denies, denies.?Rapid beat?denies, denies.?Chest pain ?denies, denies.?Atrial Fib.?denies, denies.?Murmur/Palpitations?denies, denies.?Gastrointestinal:?Hemorrhoids?denies, denies.?Stomach/Abdominal pain?denies, denies.?Dark blood stool?denies, denies.?Irritable bowel ?denies, denies.?Constipation?denies, denies.?Diarrhea?denies, denies.?Hematology:?Swelling?denies, denies.?Clots?denies, denies.?Varicose Veins?denies, denies.?Bruising?denies, denies.?Bleeding problem?denies, denies.?Genitourinary:?Blood urine?denies, denies.?Frequent/Painfu/urination/bladder control?denies, denies.?Kidney stones?denies, denies.?Infection (UTI)?denies, denies.?Nephropathy?denies, denies.?sex trans dis (STD)?denies, denies.?Prostate?denies, denies.?Musculoskeletal:?Hammertoes?denies, denies.?Bunions?denies, denies.?Back Pain?denies, denies.?Muscle Cramps/ Resting?denies, denies.?Muscle cramps / walking?denies, denies.?Generalized aches and pains?denies, denies.?Weakness?denies, denies.?Integ.:?Purcell?denies, denies.?Scars?denies, denies.?Corns/calluses?denies, denies.?Ingrown nails?denies, denies.?Painful nails?denies, denies.?Open Sores?denies, denies.?Rashes?denies, denies.?Neurologic:?Difficulty sleeping?denies, denies.?Brain disorder?denies, denies.?Numbness?denies, denies.?Balance trouble?denies, denies.?Confusion?denies, denies.?Fainting/blackouts?denies, denies.?Tingling?denies, denies.?Tremors?denies, denies.? * Medical History:? * Surgical History:?hysterecto my 1993back surgery 2009bilateral vein 1974hammer toes knee replacement 2002 2011back 2009cataracts 2009Lithotrispy, Kidney 2019R hand 02/2022Total excision 5th Met head Left foot P/B 03/19/2023 * Hospitalization/Major Diagno stic Procedure:?2 ear surgeries 1964transfusions 1974 * Family History:?Mother: dece ased, diagnosed with Family history of arthritis, Diabetic - NIDDM, Other malignant neoplasm of unspecified site.?Father: , diagnosed with Diabetic - NIDDM.?Siblings: , Sisters - from liver cancer.? * Social History:?Tobacco Use:?Tobacco Use/Smoking?Are you a:?nonsmoker ?Additional Findings: Tobacco Non-User?Current non-smoker ?Tobacco use other than smoking?Are you an other tobacco user??No ???Miscellaneous:?Caffeine: yes, frequency:, 1 cup caffine a day. ?Children: yes, 3. ?Community involvements: active in community organizations. ?Exercise: yes, sewing , walking. ?Marital status: . ?Occupation: retired RN. * Medications:?TakingPriLOSEC OTC 20 MG Tablet Delayed Release 2 tablets Orally Once a dayProcardia XL 30 MG Tablet Extended Release 24 Hour 1 tablet Orally Once a dayRestoril 15 MG Capsule 1 capsule at bedtime as needed Orally Once a dayNeurontin 300 MG Capsule 1 capsule Orally Remeron 30 MG Tablet 1 tablet at bedtime Orally Vitamin B6 Vitamin D 25 MCG (1000 UT) Tablet 1 tablet Orally Once a dayMultivitamin Taking PriLOSEC OTC 20 MG Tablet Delayed Release 2 tablets Orally Once a dayTaking Procardia XL 30 MG Tablet Extended Release 24 Hour 1 tablet Orally Once a dayTaking Restoril 15 MG Capsule 1 capsule at bedtime as needed Orally Once a dayTaking Neurontin 300 MG Capsule 1 capsule Orally Taking Remeron 30 MG Tablet 1 tablet at bedtime Orally Taking Vitamin B6 Taking Vitamin D 25 MCG (1000 UT) Tablet 1 tablet Orally Once a dayTaking Multivitamin Not-Taking/PRNaleve oxyCODONE HCl 5 MG Tablet 0.5-1 tablet as needed Orally every 4-6 hrsKeflex 500 MG Capsule 1 capsule Orally every 12 hrsPhysical Therapy . . . . 2-3x/weekKeflex 500 MG Capsule 1 capsule Orally every 12 hrsMedication List reviewed and reconciled with the patientNot- Taking/PRN aleve Not-Taking/PRN oxyCODONE HCl 5 MG Tablet 0.5-1 tablet as needed Orally every 4-6 hrsNot-Taking/PRN Keflex 500 MG Capsule 1 capsule Orally every 12 hrsNot-Taking/PRN Physical Therapy . . . . 2-3x/weekNot-Taking/PRN Keflex 500 MG Capsule 1 capsule Orally every 12 hrsMedication List reviewed and reconciled with the patient * Allergies:?Celebrex: Allergy Bee Sting: Allergyyes[Allergies Verified] Objective: * Vitals:?Ht: 5 ft 1 in, Wt: 1 50, BMI: 28.34, Shoe size: 8.5, BP: 132/78 mm Hg, Wt-k.04 kg. * Examination: ???X-Rays - IMAGING REPORT: ?Views:?Pt Defers X-Rays.?Nails: ?NAILS are:?Elongated, overgrown, dystrophic, lytic, greater than 3mm thick, discolored and friable with crumbly malodorous subungual debris, with pain on palpation , 1-5 B/L.?Orthopedic: ?MUSCLE STRENGTH:?5/5 all groups in a symmetrical fashion, B/L.?MPJ PATHOLOGY:? Pain, swelling, and inflammation to plantar MPJ(s), LEFT, No MPJ pain with ROM, [ - ] Ecchymosis, Atrophied anterior fat pad, Plantarflexed MT/MPJ, 3rd, 4th, LEFT.?Neurological: ?SENSORY:?Neurological exam reveals intact sensorium, pain sensation normal, vibration sensation intact, pinprick sensation is normal in the lower extremities, Pt denies, anesthesia, burning, paresthesia, tingling, B/L.? Assessment: * Assessment: 1.?Tinea unguium - B35.1?2.? Metatarsalgia, left foot - M77.42 (Primary)?3.?Pain in left toe(s) - M79.675?4.?Pain in right toe(s) - M79.674?5.?Pain in left foot - M79.672?6.?Pain in left ankle and joints of left foot - M25.572?7.?Bursitis of intermetatarsal bursa of left foot - M77.52? Plan: * Treatment: * Procedures:?Debride Nail 6-10:?Nail debridement?Nail debridement performed extensively to reduce/remove overall nail length and girth, subungual debris, and necrotic tissue, by manual and electrical means with use of a nail nipper and/or dremel, to more viable healthy nail plate or bed tissue 6-10. Silver nitrate used for any petechial bleeding as necessary. Patient chooses, no pharmaceutical tx (02987).? * Procedure Codes:?56688 DEBRI DE NAIL, 6 OR MORE * Preventive Medicine:? ??Counseling:?Discussion:?-13: Office or other outpatient visit for the evaluation and management of an established patient, which required a medically appropriate history and/or examination and LOW level of DECISION MAKING for: 1 STABLE ACUTE UNCOMPLICATED PROBLEM, 2 OR MORE MINOR PROBLEMS, OR 1 STABLE CHRONIC PROBLEM, THAT POSE(S) A LOW RISK FOR MORBIDITY/MORTALITY. The visit on the day of the encounter encompassed interpreting the data and educating the patient as to the nature of their condition, treatment options available according to their individual PMH, meds, allergies, and overall health/living conditions, as well as any potential risks or complications that may occur from a failure to adhere to, and participate in, the recommended course of therapy. The discussion included a complete verbal, and/or written explanation of the examination results, any x-rays taken, the proposed diagnosis, and outline of the treatment plan. A schedule for future care needs was also explained. The patient verbalized an understanding of the instructions at this time and agreed to be an active participant in their treatment. If the patient should think of any questions or concerns after the visit, I have encouraged the patient to call the office.?Metatarsalgea:?I explained to the patient the possible etiologies of their Metatarsalgea Foot pain, including foot type/shoegear/activity level/exercise routine and the risks/benefits of all the different treatment options for pain including: No treatment at all, Rest, Ice, NSAIDs(only if well tolerated after meals), New/supportive Shoegear, Strappings and Tapings, Foot/Ankle AFO Bracing, Stretching exercises, Deep Tissue Massage, Arch support/shoe inserts, Custom orthoses, Topical analgesics including Aspercream/Voltaren gel, Physical Therapy, Cortisone injection therapy, EPAT/ESWT. Advantages and disadvantages of each option were discussed and the patients questions re: shoegear, custom vs prefabricated inserts, activity level, PO vs Topical medications (and their respective potential complications/drug interactions/side effects), and consistency in home treatment regimens for optimal success were answered to their verbally confirmed satisfaction.?P.R.I.C.E.:?The patient was counseled on the use of P.R.I.C.E. and NSAIDS (if well tolerated) to aid in the recovery from their painful condition.?Podiatric Surgery Counseling:?Surgical procedures to treat the patients foot problem were discussed. We reviewed the risks of the procedure (described below) vs not having the procedure (persistent pain, deformity, risk for skin ulceration/infection, loss of toe). We discussed the potential procedure complications including, but not limited to: pain, swelling, bleeding, scarring, numbness, infection, delayed/non healing, floppy/unstable/shorthened toe, recurrence, failure of the procedure, overcorrection leading to plantarflexed/downward positioned toe, recurrence, need for further surgery, as well as the possibility for loss of the toe itself. We discussed the use of IV/Local anesthesia, and the usual post-op course for healing. No guarentees were given. The patient verbally indicated a full understanding of the above conversation, and any other of their questions were answered to their satisfaction.?Shoe Gear Counseling:?The patient and I reviewed the types of shoes they should be wearing. My recommendation included obtaining a well-fitted shoe with a good supportive, non-foldable nor twistable sole, plenty of toe/room for the forefoot, and proper arch support. Based on todays examination, I recommended the patient look for new shoes, by having their feet professionally measured. We discussed that generally the best time of the day for a shoe fitting is the afternoon. Different shoes types and brands to best match the patients occupation and vocation were discussed. Specific brand selection will be up to the patient, their individual foot condition/deformities, and fit. The patient and I reviewed the standard new shoe break in period by wearing them for a few hours a day while checking for redness or sores as wear time is increased. The patient verbally confirmed to understanding the information discussed.? * Follow Up:?2 Months * Images: * Sign off status: Completed true * Provider:?Di Casillas DPM Date:?07/2024 Generated for Jensen sparks/Lilliana/Irina on:?10/15/2024 11:28 AM EST History and Physical Notes * HPI (History of Present Illness) Category Sub-Category Detail Notes Category Not es Painful Nails Pt States Last PCP Visit: Date:: 03/01/2024 Foot Pain Location: Bottom, Forefoot, LEFT Course: intermittent Aggravated: especially barefoot , standing Treatments: rest/alter normal da erica activity Examination Category Sub-Category Detail Notes Category Not es Neurological SENSORY: Neurological exa m reveals intact sensorium, pain sensation normal, vibration sensation intact, pinprick sensation is normal in the lower extremities, Pt denies, anesthesia, burning, paresthesia, tingling, B/L Orthopedic MPJ PATHOLOGY: Pain, swelling, and inflammation to plantar MPJ(s), LEFT, No MPJ pain with ROM, [ - ] Ecchymosis, Atrophied anterior fat pad, Plantarflexed MT/MPJ, 3rd, 4th, LEFT MUSCLE STRENGTH: 5/5 all groups in a symmetrical fashion, B/L Nails NAILS are: Elongated, overg rown, dystrophic, lytic, greater than 3mm thick, discolored and friable with crumbly malodorous subungual debris, with pain on palpation , 1-5 B/L X-Rays - IMAGING REPORT Views: Pt Defers X-Rays
--- OUTSIDE RECORDS SUMMARY | 2024-10-15 11:29 | XMS_ITS ---
Author Organization [facility] Address [address] [place] [address] Care Team Providers Care Hearing Examiner Name Role Phone Erlin Brown MD Primary Care Provider UnavailDi Thompson [phone] Scott Encounters Encounter Location Date Provider Diagnosis [address] [address] 04/30/2024 Di Casillas Plan Of Treatment Next Appt Details Provider Name:Di gray, 10/19/2024 11:30:00 AM, [address] [place], [address], Progress Notes * Karson HAYSOB:1940 (84 yo F)Acc No.[id number]:04/30/2024 Progress Note Patient:?Rosa Maria HAYS Provider:?Di Casillas DPM :1940???Age:83 Y???Sex:Female D ate:04/30/2024 Address:[address] [id number] Pcp:Erlin Brown MD Subjective: * Chief Complaints: * ???1. Dr Scott. * Medical History:? Objective: * Vitals:? Assessment: Plan: * Treatment: * Images: * The named appointment provid er may or may not be the originator of this progress note, and it is not deemed complete until electronically signed by the appointment provider. Sign off status: Pending * Provider:?Di Casillas DPM Date:? Generated for Jensen sparks/Lilliana/Irina on:?10/15/2024 11:28 AM EST
--- OUTSIDE RECORDS SUMMARY | 2024-10-15 11:29 | XMS_ITS ---
Author Organization Nikhil Kidd III, MD Address [address] [place] [address] Care Team Providers Care Toolroom Helper Name Role Phone Erlin Brown MD Primary Care Provider Unavaila Nikhil Muñoz [phone] REASON FOR VISIT Follow Up Encounters Encounter Location Date Provider Diagnosis Nikhil Kidd III, MD [address] [place] [address] [place] [address] 03/15/2024 Nikhil Kidd Plan Of Treatment Next Appt Details Provider Name:Nikhil Kidd, 03/17/2025 09:00:00 AM, [address] [place] [address] [address] [place], [place], [address], Progress Notes * JUSTIN HAYS ADOB:[birth year] (84 yo F)Acc No.[id number]:03/15/2024 Progress Notes Patient:?JUSTIN HAYS Cornelio Provider:?Nikhil Kidd MD :1940???Age:83 Y???Sex:Female D ate:03/15/2024 Address:[address] [place], [place] [id number] Pcp:Erlin Brown MD Subjective: * Chief Complaints: * ???1. Follow Up. * Medical History:? Objective: * Vitals:? Assessment: Plan: * Treatment: * Images: * The named appointment provid er may or may not be the originator of this progress note, and it is not deemed complete until electronically signed by the appointment provider. Sign off status: Pending * Provider:?Nikhil Kidd MD Date:?04/2024 Generated for eJnsen sparks/Lilliana/Irina on:?10/15/2024 11:29 AM EST
--- OUTSIDE RECORDS SUMMARY | 2024-10-15 11:29 | XMS_ITS | Patient Health Record ---
Author Organization Nikhil Kidd III, MD Address [address] [place] [address] Care Team Providers Care Color Strainer Name Role Phone Erlin Brown MD Primary Care Provider Nikhil Carranza Unavailable [phone] Allergies Allergen (clinical drug ingredient) Drug/Non Drug Allergy documented on EMR Reaction Allergy Type Onset Date Status celecoxib Celebrex Unknown Drug Allergy Active Results Component Value Reference Range Notes Complete Blood Count Auto Di ff Reviewed date:03/08/2024 04:26:15 PM Interpretation: Performing Lab:[facility], [address] [place] [phone] Notes/Report: White Blood Count 3.5 4.8-10.8 X10*3/uL Red Blood Count 3.61 4.20-5.50 X10*6/uL Hemoglobin 12.8 12.0-16.0 g/dl Hematocrit 37.3 37.0-47.0 % Mean Corpuscular Volume 103.3 80.0-98.0 fL Mean Corpuscular Hemoglobin 35.5 27.0-33.0 pg Mean Corpuscular HGB Conc 34.3 31.0-35.0 g/dl Red Cell Distribution Width 12.6 11.0-16.0 % Platelet Count 202 160-400 X10*3/uL Mean Platelet Volume 12.5 9.4-12.3 fL Neutrophils Percent Auto 40.2 45-73 % Imm Gran Pct Auto 0.0 0.0-0.4 % Lymphocytes Percent Auto 44.3 20-40 % Monocytes Percent Auto 10.9 2-11 % Eosinophils Percent Auto 3.7 0-4 % Basophils Percent Auto 0.9 0-2 % NRBC Pct Auto 0.0 0.0-0.2 /100WBC Neutrophils Absolute Auto 1.4 2.0-8.3 x10*3/u L Imm Gran Abs Auto 0.00 0.00-0.03 X10*3/uL Lymphocytes Absolute Auto 1.5 1.2-4.9 X10*3/u L Monocytes Absolute Auto 0.4 0.1-1.2 X10*3/uL Eosinophils Absolute Auto 0.1 0.0-0.4 X10*3/u L Basophils Absolute Auto 0.0 0.0-0.2 X10*3/uL NRBC Abs Auto 0.000 0.0-0.012 X10*3/uL Comprehensive Met. Panel Reviewed date:03/08/2024 04:26:15 PM Interpretation: Performing Lab:[address] [phone] Notes/Report: Sodium 138 135-145 mmol/L Potassium 3.9 3.3-5.1 mmol/L Chloride 104 96-108 mmol/L Carbon Dioxide 26 22-29 mmol/L Anion Gap 12 12-20 Blood Urea Nitrogen 14 9-16 mg/dL Creatinine 0.87 0.5-1.4 mg/dL Estimated Glomerular Filt Rate > 60 NOTE: For -Finnish individuals, multiply the result by 1.210. Chronic Kidney Disease: Estimated GFR < 60 mL/min/1.73m2 Severe Kidney Disease: Estimated GFR < 15 mL/min/1.73m2 Glucose Random 91 60-115 mg/dL Calcium 9.6 8.4-10.2 mg/dL Bilirubin Total 0.5 0.0-1.0 mg/dL Aspartate Amino Transferase 21 5-31 U/L Alanine Aminotransferase 14 0-31 U/L Total Protein 6.8 6.5-8.0 g/dL Albumin Level 4.0 3.5-5.0 g/dL Alkaline Phosphatase 47 39-117 U/L IRON PROFILE Reviewed date:03/08/2024 04:26:15 PM Interpretation: Performing Lab:[address] [phone] Notes/Report: Iron 227 30-160 mcg/dL Total Iron Binding Capacity 252 228-428 mcg/d L Percent Iron Saturation 90 15-50 % Unsaturated Iron Binding < 25 Ferritin Reviewed date:03/08/2024 04:26:15 PM Interpretation: Performing Lab:[facility], [address] [place] [phone] Notes/Report: Ferritin 254 10-250 ng/mL Lipid Panel Reviewed date:03/08/2024 04:26:15 PM Interpretation: Performing Lab:[facility], [address] [place] [phone] Notes/Report: Triglycerides 106 <150 mg/dL Desirable Triglyceride: less than 150 mg/dL Borderline High Triglyceride 150-199 mg/dL High Triglyceride: 200-499 mg/dL Very High Triglyceride: greater than or equal to 5OO mg/dL Cholesterol 138 <200 mg/dL Desirable Cholesterol: less than 200 mg/dL Borderline High Cholesterol: 200-239 mg/dL High Cholesterol: greater than 239 mg/dL LDL Cholesterol Calculated 74 <100 mg/dL Desirable LDL: less than 100 mg/dL Near Optimal/Above Optimal LDL: 110-129 mg/dL Borderline High LDL: 130-159 mg/dL High LDL: 160-189 mg/dL Very High LDL: greater than or equal to 190 mg/dL HDL Cholesterol 43 >40 mg/dL Desirable HDL: greater than 40 mg/dL Note: This HDL assay may give artificially low results in patients with liver disease. Reason For Referral No Information Medications Medication SIG (Take, Route, Frequency, Duration) Notes Start Date End Date Status Omeprazole 40 MG 1 tablet Orally Once a day Active rOPINIRole HCl Activ e NIFEdipine ER Osmotic Release Active Procardia 10 MG 1 capsule Orally Active Gabapentin 300 MG 1 tablet Orally Once a day Active Mirtazapine 30 MG 1 tablet at bedtime Orally Once a day Active B6 Natural [...] nonsmoker Additional Findings: Tobacco Non-User Aggressive non-smoker Alcohol Screen Question Answer Notes Did you have a drink containing alcohol in the p ast year? No Points 0 Interpretation Negative Problems Problem Type SNOMED Code ICD Code Onset Dates Problem Status W/U Status Risk Notes Problem 074731345 Overweight (E66.3) Active confirmed Her body mass index is 27. She has lost 6 pounds since her last visit. Her nutritional status is excellent. 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 Observation will continue. The iron level is 227. Problem 32779885 Essential hypertension (I10) Active confirmed Her blood pressure was elevated today. She was referred back to primary care for treatment. Problem 439941451 Gastroesophageal reflux disease without esophagitis (K21.9) Active confirmed Her reflux is well-controlle d with epgk-hxh-tkbnb er medications and no change in regimen is necessary. Problem 342782466 Osteoarthritis o f both knees, unspecified osteoarthritis type (M17.0) Active confirmed She has had bilateral knee replacements and is doing well. Problem 13699150 Other depression (F32.89) Active confirmed She is very stated over the loss of her recently. She seems to be received but does not seem depressed. 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 No additional treatment is necessary. Problem 91307060 Gastric ulcer without hemorrhage or perforation, unspecified chronicity (K25.9) Active confirmed On antral ulcer was found at endoscopy in 2002 but has not relapsed. Vital Signs Heart Rate 72 /min 03/17/2024 Temperature 98.0 degrees Fahrenheit 03/17/2024 Blood pressure diastolic 69 mm Hg 03/17/2024 Height 63 in 03/17/2024 Blood pressure systolic 141 mm Hg 03/17/2024 Weight 155 lbs 03/17/2024 BMI 27.45 kg/m2 03/17/2024 Encounters Encounter Location Date Provider Diagnosis Nikhil Kidd III, MD [address] [place] [address] [place] [address] 03/17/2024 Nikhil Kidd Hereditary hemochromatosis E83.110 ; Overweight E66.3 ; Essential hypertension I10 ; Osteoarthritis of both knees, unspecified osteoarthritis type M17.0 and Other depression F32.89 Assessments Encounter Date Diagnosis (ICD Code) Assessment Notes Treat ment Notes Treatment Clinical Notes 03/17/2024 Overweight (ICD-10 - E66.3) Her body mass index is 27. She has lost 6 pounds since her last visit. Her nutritional status is excellent. 03/17/2024 Hereditary hemochromatosis (ICD-10 - E83.110) Her ferritin level is 254. Observation will continue. The iron level is 227. 03/17/2024 Essential hypertensi on (ICD-10 - I10) [...] does not seem depressed. Plan Of Treatment Pending Test Test Name Order Date PROFILE, RANDOM (COMPREHENSIVE METABOLIC ) 10/15/2022 PROFILE, RANDOM (COMPREHENSIVE METABOLIC ) 05/05/2018 PROFILE, RANDOM (COMPREHENSIVE METABOLIC ) 02/24/2019 PROFILE, RANDOM (COMPREHENSIVE METABOLIC ) 02/28/2020 PROFILE, RANDOM (COMPREHENSIVE METABOLIC ) 01/02/2018 PROFILE, RANDOM (COMPREHENSIVE METABOLIC ) 03/17/2024 PROFILE, RANDOM (COMPREHENSIVE METABOLIC ) 03/14/2023 PROFILE, RANDOM (COMPREHENSIVE METABOLIC ) 10/10/2021 PROFILE, RANDOM (COMPREHENSIVE METABOLIC ) 08/26/2018 PROFILE, RANDOM (COMPREHENSIVE METABOLIC ) 08/27/2019 PROFILE, RANDOM (COMPREHENSIVE METABOLIC ) 09/14/2020 IRON + IBC (FE) 03/14/2023 FERRITIN 08/27/2019 FERRITIN 09/14/2020 FERRITIN 10/15/2022 FERRITIN 05/05/2018 FERRITIN 02/24/2019 FERRITIN 02/28/2020 FERRITIN 01/02/2018 FERRITIN 08/26/2018 CBC w DIFF 03/14/2023 CBC w DIFF 08/26/2018 CBC w DIFF 08/27/2019 CBC w DIFF 09/14/2020 CBC w DIFF 10/15/2022 CBC w DIFF 05/05/2018 CBC w DIFF 02/24/2019 CBC w DIFF 02/28/2020 CBC w DIFF 01/02/2018 CBC w DIFF 10/10/2021 RETICULOCYTE COUNT,CORRECTED 01/02/2018 CT ABD WITH CONTRAST 10/01/2021 CBC WITH AUTO DIFF 03/17/2024 Ferritin 03/14/2023 Ferritin 03/17/2024 Lipid Panel 03/14/2023 Next Appt Details Provider Name:Nikhil Kidd, 03/17/2025 09:00:00 AM, [address] [place] [address] [address], [place], [address], Insurance Providers Payer Name Payer Address Payer Phone Subscriber Number Group Number Insured Name Patient Relationship to Insured Coverage Start Date Coverage End Date [employer] Medicare Advantage [address] [address] [place] [phone] [id number] JUSTIN HAYS Self - patient is the insured MEDICARE NGS [address] [place] [phone] [id number] JUSTIN HAYS Self - patient is the insured Medical (General) History Medical History History ICD Code Hypertension, unspecified type I10 osteoarthritis both knees bilateral knee replacement chronic depression hysterectomy and oophorectomy cholesteatoma, right ear gastric antral ulcer 2002 GERD hemochromatosis, 2000, homozygous for C2 82Y Surgical History Surgery Date(Month/Year) Tendon repair, Right hand 02/2022 left myringotomy left knee arthroscopy 1985 upper endoscopy, antral ulcer 2002 ISIDRA/BSO 1992 back surgery 2008 right knee replacement 2010 left knee replacement 2001
[2024-10-15 11:37] LABS: Basophils Percent Auto 0.6 % (0-2); Eosinophils Absolute Auto 0.3 X10*3/uL (0.0-0.4); Eosinophils Percent Auto 5.9 % (0-4); Hematocrit 37.6 % (37.0-47.0); Hemoglobin 12.7 g/dl (12.0-16.0); Imm Gran Abs Auto 0.01 X10*3/uL (0.00-0.03); Imm Gran Pct Auto 0.2 % (0.0-0.4); Lymphocytes Absolute Auto 2.1 X10*3/uL (1.2-4.9); Lymphocytes Percent Auto 39.6 % (20-40); Mean Corpuscular HGB Conc 33.8 g/dl (31.0-35.0); Mean Corpuscular Hemoglobin 34.6 pg (27.0-33.0); Mean Corpuscular Volume 102.5 fL (80.0-98.0); Mean Platelet Volume 11.7 fL (9.4-12.3); Monocytes Absolute Auto 0.5 X10*3/uL (0.1-1.2); Monocytes Percent Auto 9.4 % (2-11); Neutrophils Absolute Auto 2.4 x10*3/uL (2.0-8.3); Neutrophils Percent Auto 44.3 % (45-73); Platelet Count 217 X10*3/uL (160-400); Red Blood Count 3.67 X10*6/uL (4.20-5.50); Red Cell Distribution Width 13.2 % (11.0-16.0); White Blood Count 5.4 X10*3/uL (4.8-10.8)
[2024-10-15 12:15] LABS: Alanine Aminotransferase 17 U/L (0-31); Albumin Level 4.2 g/dL (3.5-5.0); Alkaline Phosphatase 49 U/L (39-117); Anion Gap 9 (12-20); Aspartate Amino Transferase 26 U/L (5-31); Bilirubin Total 0.7 mg/dL (0.0-1.0); Blood Urea Nitrogen 13 mg/dL (9-16); C Reactive Protein < 0.04 mg/dL (< or = 0.50); Calcium 9.6 mg/dL (8.4-10.2); Carbon Dioxide 28 mmol/L (22-29); Chloride 105 mmol/L (96-108); Estimated Glomerular Filt Rate > 60; Glucose Random 91 mg/dL (60-115); Iron 242 mcg/dL (30-160); Percent Iron Saturation 91 % (15-50); Potassium 4.1 mmol/L (3.3-5.1); Sodium 138 mmol/L (135-145); Total Iron Binding Capacity 267 mcg/dL (228-428); Total Protein 7.6 g/dL (6.5-8.0); Unsaturated Iron Binding < 25 ug/dL
[2024-10-15 12:31] LABS: Ferritin 237 ng/mL (10-250)
== END 2024-10-15 10:24 | disposition home or self-care (01) ==
LOC: HO.LAB 10:23
PROVIDERS: PCP Internal Medicine; Visit Provider Internal Medicine
DX: E83.119 Hemochromatosis, unspecified (principal)
CPT/HCPCS: 36415; 80053; 82728; 83540; 85025; 86140

== ENCOUNTER 2024-11-19 12:38 | Outpatient (REF) | payer SELFPAY ==
--- OUTSIDE RECORDS SUMMARY | 2024-11-19 14:11 | XMS_ITS | Patient Health Record ---
Author Organization Nikhil Kidd III, MD Address [address] [place] [address] Care Team Providers Care Design Assembler Name Role Phone rElin Brown MD Primary Care Provider Nikhil Carranza Unavailable [phone] Allergies Allergen (clinical drug ingredient) Drug/Non Drug Allergy documented on EMR Reaction Allergy Type Onset Date Status celecoxib Celebrex Unknown Drug Allergy Active Results Component Value Reference Range Notes Complete Blood Count Auto Di ff Reviewed date:03/08/2024 04:26:15 PM Interpretation: Performing Lab:[facility], [address] [place] [phone] Notes/Report: White Blood Count 3.5 4.8-10.8 X10*3/uL [...] Panel Reviewed date:03/08/2024 04:26:15 PM Interpretation: Performing Lab:[address] [address] Notes/Report: Sodium 138 135-145 mmol/L Potassium 3.9 3.3-5.1 mmol/L Chloride 104 96-108 mmol/L Carbon Dioxide 26 22-29 mmol/L Anion Gap 12 12-20 Blood Urea Nitrogen 14 9-16 mg/dL Creatinine 0.87 0.5-1.4 mg/dL Estimated Glomerular Filt Rate > 60 NOTE: For -Stateless individuals, multiply the result by 1.210. Chronic [...] PROFILE Reviewed date:03/08/2024 04:26:15 PM Interpretation: Performing Lab:[address] [address] Notes/Report: Iron 227 30-160 mcg/dL Total Iron Binding Capacity 252 228-428 mcg/d L Percent Iron Saturation 90 15-50 % Unsaturated Iron Binding < 25 Ferritin Reviewed date:03/08/2024 04:26:15 PM Interpretation: Performing Lab:[facility], [address] [place] [phone] Notes/Report: Ferritin 254 10-250 ng/mL Lipid Panel Reviewed date:03/08/2024 04:26:15 PM Interpretation: Performing Lab:[facility], [address] [place] [phone] Notes/Report: Triglycerides 106 <150 mg/dL Desirable Triglyceride: [...] Problem Status W/U Status Risk Notes Problem 335472630 Overweight (E66.3) Active confirmed Her body mass index is 27. She has lost 6 pounds since her last visit. Her nutritional status is excellent. 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 Observation will continue. The iron level is 227. Problem 48216623 Essential hypertension (I10) Active confirmed Her blood pressure was elevated today. She was referred back to primary care for treatment. Problem 676424286 Gastroesophageal reflux disease without esophagitis (K21.9) Active confirmed Her reflux is well-controlle d with xwcl-gxl-gaqdh er medications and no change in regimen is necessary. Problem 898246954 Osteoarthritis o f both knees, unspecified osteoarthritis type (M17.0) Active confirmed She has had bilateral knee replacements and is doing well. Problem 74829527 Other depression (F32.89) Active confirmed She is very stated over the loss of her recently. She seems to be received but does not seem depressed. 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 No additional treatment is necessary. Problem 39503584 Gastric ulcer without hemorrhage or perforation, unspecified [...] Date Provider Diagnosis Nikhil Kidd III, MD [address] [place] [address] [place] [address] 03/17/2024 Nikhil Kidd Hereditary hemochromatosis E83.110 ; [...] Order Date PROFILE, RANDOM (COMPREHENSIVE METABOLIC ) 02/24/2019 PROFILE, RANDOM (COMPREHENSIVE METABOLIC ) 01/02/2018 PROFILE, RANDOM (COMPREHENSIVE METABOLIC ) 02/28/2020 PROFILE, RANDOM (COMPREHENSIVE METABOLIC ) 03/17/2024 PROFILE, RANDOM (COMPREHENSIVE METABOLIC ) 03/14/2023 PROFILE, RANDOM (COMPREHENSIVE METABOLIC ) 08/26/2018 PROFILE, RANDOM (COMPREHENSIVE METABOLIC ) 10/10/2021 PROFILE, RANDOM (COMPREHENSIVE METABOLIC ) 08/27/2019 PROFILE, RANDOM (COMPREHENSIVE METABOLIC ) 09/14/2020 PROFILE, RANDOM (COMPREHENSIVE METABOLIC ) 10/15/2022 PROFILE, RANDOM (COMPREHENSIVE METABOLIC ) 05/05/2018 IRON + IBC (FE) 03/14/2023 FERRITIN 10/15/2022 FERRITIN 05/05/2018 FERRITIN 02/24/2019 FERRITIN 01/02/2018 FERRITIN 02/28/2020 FERRITIN 08/26/2018 FERRITIN 08/27/2019 FERRITIN 09/14/2020 CBC w DIFF 08/27/2019 CBC w DIFF 09/14/2020 CBC w DIFF 10/15/2022 CBC w DIFF 05/05/2018 CBC w DIFF 02/24/2019 CBC w DIFF 01/02/2018 CBC w DIFF 02/28/2020 CBC w DIFF 10/10/2021 CBC w DIFF 03/14/2023 CBC w DIFF 08/26/2018 RETICULOCYTE COUNT,CORRECTED 01/02/2018 CT ABD WITH CONTRAST 10/01/2021 CBC WITH AUTO DIFF 03/17/2024 Ferritin 03/14/2023 Ferritin 03/17/2024 Lipid Panel 03/14/2023 Next Appt Details Provider Name:Nikhil Kidd, 03/17/2025 09:00:00 AM, [address] [place] [address] [address], [place], [address], Insurance Providers Payer Name Payer Address Payer Phone Subscriber Number Group Number Insured Name Patient Relationship to Insured Coverage Start Date Coverage End Date [employer] Medicare Advantage [address] [address] [place] [phone] [id number] JUSTIN HAYS Self - patient is the insured MEDICARE NGS [address] [place] [phone] [id number] JUSTIN HAYS Self - patient is the [...]
--- OUTSIDE RECORDS SUMMARY | 2024-11-19 14:11 | XMS_ITS ---
Author Organization Nikhil Kidd III, MD Address [address] [place] [address] [address] [place] [address] Care Team Providers Care Business Office Technician Name Role Phone Erlin Brown MD Primary Care Provider Nikhil Carranza Unavailable [phone] Allergies Allergen (clinical drug ingredient) Drug/Non Drug [...] Date Provider Diagnosis Nikhil Kidd III, MD [address] [place] [address] [place] [address] 03/17/2024 Nikhil Kidd Hereditary hemochromatosis E83.110 ; [...] V Provider Name:Nikhil Kidd, 03/17/2025 09:00:00 AM, [address] [place] [address] , [place] [address], [place], [address], Progress Notes * JUSTIN HAYS ADOB:[birth year] (83 yo F)Acc No.[id number]:03/17/2024 Progress Notes Patient:?JUSTIN HAYS A Provider:?Nikhil Kidd MD :1940???Age:83 Y???Sex:Female D ate:03/17/2024 Address:[address] [place] [address], [place] [facility] Pcp:Erlin Brown MD Subjective: * Chief Complaints: [...] 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. * Medications:?TakingB6 Natura l 100 MG [...] - 03/08/2024) (Collection Date - 03/08/2024) ?ValueReference Range?Dnwdnqnixkdll165<150 - mg/dL ?Yiatdavssxz583<200 - mg/dL?LDL Cholesterol Hfzauzwhee63<100 - mg/dL?HDL Ayeshnpcsod10>40 - mg/dL * Examination: ???General Examination: ?GENERAL [...] Provider:?Nikhil Kidd MD Date:?03/08 Generated for Printi ng/Faearleneg/eTransmitting on:?11/19/2024 02:11 PM EDT History and Physical Notes * HPI (History of Present Illness) Category Sub-Category Detail Notes COVID-19 Screening Questions Have you had any new onset fever, chills, cough, congestion, sore throat, shortness of breath, muscle aches?: No Have you been exposed to the virus withi n the last 10 days?: No Have you travelled internationally in [facility] last 10 days?: No Have you been [...]
--- OUTSIDE RECORDS SUMMARY | 2024-11-19 14:11 | XMS_ITS ---
Author Organization Nkihil Kidd III, MD Address [address] [place] [address] Care Team Providers Care Paste Mixing Supervisor Name Role Phone Erlin Brown MD Primary Care Provider Unavaila Nikhil Muñoz [phone] REASON FOR VISIT Follow Up Encounters Encounter Location Date Provider Diagnosis Nikhil Kidd III, MD [address] [place] [address] [place] [address] 03/15/2024 Nikhil Kidd Plan Of Treatment Next Appt Details Provider Name:Nikhil Kidd, 03/17/2025 09:00:00 AM, [address] [place] [address] [address], [place], [address], Progress Notes * JUSTIN HAYS ADOB:[birth year] (84 yo F)Acc No.[id number]:03/15/2024 Progress Notes Patient:?JUSTIN HAYS Cornelio Provider:?Nikhil Kidd MD :1940???Age:83 Y???Sex:Female D ate:03/15/2024 Address:[address] [place], [place] [id number] Pcp:Erlin Brown MD Subjective: * Chief Complaints: [...] * Provider:?Nikhil Kidd MD Date:?04/2024 Generated for Jensen sparks/Lilliana/Irina on:?11/19/2024 02:11 PM EDT
== END 2024-11-19 12:39 | disposition home or self-care (01) ==
LOC: HO.HAP 12:38
PROVIDERS: Visit Provider Family Medicine
DX: Z46.1 Encounter for fitting and adjustment of hearing aid (principal); H90.6 Mixed conductive and sensorineural hearing loss, bilateral
CPT/HCPCS: 92593

== ENCOUNTER 2024-12-04 12:05 | Inpatient (IN) | payer MEDICARE, SELFPAY ==
--- NOTE | ~2024-12-04 | CT_ITS ---
CLINICAL HISTORY: Atraumatic back pain CT abdomen and pelvis without IV contrast. COMPARISON: None FINDINGS: Minimal atelectasis versus scarring along the posterior lower lobes. Coronary artery calcifications present within the LAD. Cholelithiasis present within the gallbladder body. Lobular hepatic contour. No pericholecystic inflammatory changes. Noncontrast appearance of the liver, spleen, adrenal glands are unremarkable. Atrophic pancreas. Right renal cystic lesion measuring 6.0 cm. Nonobstructing 5 mm and 3 mm right renal calculi. Normal appendix. Mild colonic stool burden. Moderate colonic diverticulosis without evidence of diverticulitis. No mesenteric or retroperitoneal lymphadenopathy. Moderate aortoiliac atherosclerotic vascular calcifications. There is recanalization of the umbilical vein. Urinary bladder is unremarkable given degree of distention. No adnexal mass. Degenerative changes of the bilateral hips. Grade 1 anterolisthesis of L4 on L5 with posterior spinal fixation hardware bridging the L4 on L5 vertebral body levels. Moderate to advanced multilevel degenerative changes of the lower thoracic and lumbar spine. No evidence of acute vertebral body injury. IMPRESSION: 1. Grade 1 anterolisthesis of L4 on L5 with posterior spinal fixation hardware in place. No evidence of hardware complication. Moderate to advanced multilevel degenerative changes of the lower thoracic and lumbar spine. 2. Cirrhotic hepatic morphology with evidence of portal venous hypertension including recanalization of the umbilical vein. 3. Nonobstructing right renal calculi measuring up to 5 mm. 4. Colonic diverticulosis without evidence of diverticulitis. 5. Coronary artery atherosclerosis. This document has been electronically signed by: Clarence Marte MD on 12/04/2024 14:19:22
--- NOTE | ~2024-12-04 | XR_ITS ---
CLINICAL HISTORY: sob Single view of the chest. COMPARISON: None FINDINGS: Normal heart size. Atherosclerotic thoracic aorta. Mild elevation of the right hemidiaphragm. Linear atelectasis versus scarring within the right midlung. No pleural effusion or pneumothorax. Chronic healed fracture deformity of the right posterior 5th and 7th ribs. No acute fracture identified. Degenerative changes of the bilateral shoulders. IMPRESSION: 1. No consolidation. This document has been electronically signed by: Clarence Marte MD on 12/04/2024 15:22:32
[2024-12-04 12:17] VITALS: BP 126/64; BP 156/84; PULSE 92; RESP 24; TEMP 37; O2SAT 97; O2SAT 99; BMI 29.5
--- NOTE | 2024-12-04 12:25 | PC.NURSE ---
Pt crying on arrival, reporting severe pain all over back , but primarily lumbar area; hx of surgery with hardware to lumbar spine years ago; pt denies any paresthesias; full ROM/sensation to extremities; denies known injury/falls; took Tylenol at home with no change in pain; pt denies any incontinence; IV access established; awaiting provider; family at bedside
--- NOTE | 2024-12-04 12:31 | ED.BACK ---
HPI - Back Pain/Injury General Chief Complaint: Back Pain/Injury Stated Complaint: GENERAL BACK PAIN Time Seen by Provider: 12/04/24 12:25 Source: patient Mode of arrival: ambulatory Limitations: no limitations Related Data Home Medications ?Medication ?Instructions ?Recorded ?Confirmed gabapentin 300 mg capsule 300 mg PO BEDTIME 10/18/20 12/04/24 nifedipine 30 mg tablet,extended 30 mg PO DAILY 10/18/20 12/04/24 release 24 hr omeprazole 40 mg capsule,delayed 40 mg PO DAILY 10/18/20 12/04/24 release ropinirole 1 mg tablet 1 mg PO BEDTIME 10/18/20 12/04/24 temazepam 15 mg capsule 15 mg PO BEDTIME PRN Sleep 10/18/20 12/04/24 cholecalciferol (vitamin D3) 25 25 mcg PO DAILY 10/11/22 12/04/24 mcg (1,000 unit) capsule fluticasone propionate 50 2 spray intranasal DAILY PRN 10/11/22 12/04/24 mcg/actuation nasal Allergy Symptoms spray,suspension multivitamin 1 tab PO DAILY 10/11/22 12/04/24 mirtazapine 30 mg tablet 30 mg PO BEDTIME 05/06/23 12/04/24 Previous Rx's ?Medication ?Instructions ?Recorded pyridoxine (vitamin B6) 100 mg 100 mg PO DAILY 90 days #90 tabs 10/09/21 tablet Allergies Allergy/AdvReac Type Severity Reaction Status Date / Time bee pollen [BEE STINGS] Allergy Severe ANAPHYLAXIS Verified 12/04/24 12:21 celecoxib [From Celebrex] Allergy Severe INTERNAL Verified 12/04/24 12:21 BLEEDING PMFSH Past Medical History Medical History Hemochromatosis Renal cyst History of kidney stones Restless leg syndrome Acid reflux Surgical History History of knee replacement History of back surgery Social History Social History Alcohol intake: never Patient Tobacco Use Status: Never used Tobacco Smoked in Last 30 Days: No Use of substances other than those prescribed or required for medical reasons: No Advance Directives: No Advance Directives Information Provided: No Do you have a plan to hurt others: No Plan Nutrition Risks: No Nutritional Risk Current occupational status: retired Current occupation: right handed Physical Exam Vital Signs: Vital Signs: Last Vital Signs Temp 98.9 F 12/04/24 15:52 Pulse 78 12/04/24 15:52 Resp 24 H 12/04/24 12:17 BP 142/78 H 12/04/24 15:52 Pulse Ox 99 12/04/24 15:52 O2 Del Method Room Air 12/04/24 15:52 BMI result Body Mass Index 29.5 Appearance: Alert. Oriented X3. No acute distress. Eyes: No pallor or icterus ENT: Pharynx normal. Oral Mucosa moist Neck: Normal inspection. Neck supple. CVS: Normal heart rate and rhythm. Pulses normal. Respiratory: No respiratory distress. Equal air entry bilateral, no wheezing/rales/rhonchi Abdomen: Soft and nontender. Bowel sounds are present, no mass palpable, no CVA tenderness Back: Diffuse tenderness L2-L3 area no CVA tenderness SLR negative bilateral Skin: Skin warm and dry. Normal skin color. Normal skin turgor. Extremities: No lower extremity edema. No calf tenderness Neuro: Oriented X 3. No motor deficit. No sensory deficit.No cerebellar signs , cranial nerves II-XII intact Medications Administered Discontinued Medications Generic Name Dose Route Start Last Admin Trade Name Freq PRN Reason Stop Dose Admin Ceftriaxone Sodium 1 gm 12/04/24 14:02 12/04/24 14:37 Ceftriaxone Sodium 1 Gm Vial IVPUSH 12/04/24 14:03 1 gm ONCE ONE Administration Acetaminophen 1,000 mg in 100 mls @ 400 mls/hr 12/04/24 14:02 12/04/24 14:56 Ofirmev IV 12/04/24 14:16 Infused ONCE ONE Infusion Sodium Chloride 1,000 mls @ 999 mls/hr 12/04/24 14:02 12/04/24 14:55 Ns IV 12/04/24 15:02 999 mls/hr .Q1H1M ONE Administration Morphine Sulfate 4 mg 12/04/24 12:47 12/04/24 13:05 Morphine Sulfate 4 Mg/Ml Cartridge IVPUSH 12/04/24 12:48 4 mg ONCE ONE Administration Protocol Morphine Sulfate 4 mg 12/04/24 13:50 12/04/24 14:37 Morphine Sulfate 4 Mg/Ml Cartridge IVPUSH 12/04/24 13:51 4 mg ONCE ONE Administration Protocol Ondansetron HCl 4 mg 12/04/24 12:49 12/04/24 13:05 Ondansetron Hcl 4 Mg/2 Ml Vial IVPUSH 12/04/24 12:50 4 mg ONCE ONE Administration Medical Decision Making Medical Decision Making [facility] Narrative: Patient has acute onset of low back pain CT scan negative for acute fracture workup showed patient has a UTI likely the cause of the pain patient noticed to be febrile and with elevated lactic acid level will admit patient for IV antibiotics Differential Diagnosis Differential Diagnoses: The differential diagnosis associated with the presentation includes Compression fracture/aortic aneurysm/kidney stone/UTI/pyelonephritis Admission/Observation Consideration of admission/observation: Escalation of care including admission/observation considered Consult Healthcare Provider Management of the patient was discussed with: Hospitalist Lab Data [facility] Lab Attestation statement: I reviewed the patient's lab results. 12/04/24 13:13 12/04/24 13:13 Labs: Lab Results 12/04/24 12/04/24 Range/Units 13:13 14:33 WBC 5.3 (4.8-10.8) X10*3/uL RBC 3.64 L (4.20-5.50) X10*6/uL Hgb 12.9 (12.0-16.0) g/dl Hct 35.5 L (37.0-47.0) % MCV 97.5 (80.0-98.0) fL MCH 35.4 H (27.0-33.0) pg MCHC 36.3 H (31.0-35.0) g/dl RDW 12.6 (11.0-16.0) % Plt Count 199 (160-400) X10*3/uL MPV 11.4 (9.4-12.3) fL Immature Gran % (Auto) 0.2 (0.0-0.4) % Neut % (Auto) 46.5 (45-73) % Lymph % (Auto) 44.4 H (20-40) % [place] % (Auto) 7.9 (2-11) % Eos % (Auto) 0.4 (0-4) % Baso % (Auto) 0.6 (0-2) % Lymph # (Auto) 2.4 (1.2-4.9) X10*3/uL [place] # (Auto) 0.4 (0.1-1.2) X10*3/uL Eos # (Auto) 0.0 (0.0-0.4) X10*3/uL Baso # (Auto) 0.0 (0.0-0.2) X10*3/uL Abs Immat Gran (auto) 0.01 (0.00-0.03) X10*3/uL Absolute Neuts (auto) 2.5 (2.0-8.3) x10*3/uL Absolute Nucleated RBC 0.000 (0.0-0.012) X10*3/uL Nucleated RBC % (auto) 0.0 (0.0-0.2) /100WBC PT 12.1 (10.9-12.4) SEC INR 1.0 (0.9-1.1) Sodium 141 (135-145) mmol/L Potassium 3.2 L D (3.3-5.1) mmol/L Chloride 111 H (96-108) mmol/L Carbon Dioxide 22 (22-29) mmol/L Anion Gap 11 L (12-20) BUN 17 H (9-16) mg/dL Creatinine 0.75 (0.5-1.4) mg/dL Estim Creat Clear Calc 49.3 Estimated GFR > 60 Random Glucose 88 (60-115) mg/dL Lactic Acid 2.6 H* (0.5-2.0) mmol/L Calcium 9.5 (8.4-10.2) mg/dL Total Bilirubin 0.7 (0.0-1.0) mg/dL AST 25 (5-31) U/L ALT 14 (0-31) U/L Alkaline Phosphatase 57 (39-117) U/L Total Protein 7.1 (6.5-8.0) g/dL Albumin 4.1 (3.5-5.0) g/dL Urine Color Yellow Urine Appearance Clear Urine pH >= 9.0 (5.0-9.0) Ur Specific [place] <= 1.005 (1.005-1.025) Urine Protein Negative (Neg-Trace) mg/dL Urine Glucose (UA) Negative (Negative) mg/dL Urine Ketones Negative (Negative) mg/dL Urine Blood Negative (Negative) Urine Nitrite Positive H (Negative) Ur Leukocyte Esterase Moderate (2+) H (Negative) Urine RBC 0-2 (0-2) /HPF Urine WBC 21-50 H (0-5) /HPF Ur Squamous Epith Cells 0-2 (0-2) /HPF Urine Bacteria 4+ (None Seen) Hyaline Casts 0-2 (0-2) /LPF Influenza Type A (PCR) NEGATIVE (Negative) Influenza Type B (PCR) NEGATIVE (Negative) RSV RNA Qual (PCR) NEGATIVE (Negative) SARS-CoV-2 RNA (RT-PCR) NEGATIVE (Negative) Discharge Plan Discharge Clinical Impression: Lower thoracic back pain, Calculus of kidney, Elevated lactic acid level UTI (urinary tract infection) Qualifiers: Urinary tract infection type: site unspecified Hematuria presence: without hematuria Qualified Code(s): N39.0 - Urinary tract infection, site not specified Patient Disposition: Admitted As Inpatient Interventions: Admission Worksheet (ED) Last Done: 12/04/24 15:59
[2024-12-04] MEDS: ondansetron HCL 4 MG/2 ML VIAL IVPUSH (13:05)
[2024-12-04] MEDS: Morphine Sulfate 4 MG/ML CARTRIDGE IVPUSH ×2 (13:05→14:37)
[2024-12-04 13:18] LABS: MANUAL DIFF FLAG NO
[2024-12-04 13:19] LABS: Basophils Percent Auto 0.6 % (0-2); Eosinophils Percent Auto 0.4 % (0-4); Hematocrit 35.5 % (37.0-47.0); Hemoglobin 12.9 g/dl (12.0-16.0); Imm Gran Abs Auto 0.01 X10*3/uL (0.00-0.03); Imm Gran Pct Auto 0.2 % (0.0-0.4); Lymphocytes Absolute Auto 2.4 X10*3/uL (1.2-4.9); Lymphocytes Percent Auto 44.4 % (20-40); Mean Corpuscular HGB Conc 36.3 g/dl (31.0-35.0); Mean Corpuscular Hemoglobin 35.4 pg (27.0-33.0); Mean Corpuscular Volume 97.5 fL (80.0-98.0); Mean Platelet Volume 11.4 fL (9.4-12.3); Monocytes Absolute Auto 0.4 X10*3/uL (0.1-1.2); Monocytes Percent Auto 7.9 % (2-11); Neutrophils Absolute Auto 2.5 x10*3/uL (2.0-8.3); Neutrophils Percent Auto 46.5 % (45-73); Platelet Count 199 X10*3/uL (160-400); Red Blood Count 3.64 X10*6/uL (4.20-5.50); Red Cell Distribution Width 12.6 % (11.0-16.0); White Blood Count 5.3 X10*3/uL (4.8-10.8)
[2024-12-04 13:21] LABS: Appearance Urine Clear; Color Urine Yellow; Glucose Urine UA Negative (Negative); Leukocyte Esterase Urine Moderate (2+) (Negative); Nitrite Urine Positive (Negative); PH >= 9.0 (5.0-9.0); Specific Gravity - Urine <= 1.005 (1.005-1.025); UMIC TRIGGER UACC YES; Urine Blood Negative (Negative); Urine Ketones Negative (Negative); Urine Protein Negative (Neg-Trace)
[2024-12-04 13:23] LABS: Bacteria Urine 4+ (None Seen); Hyaline Casts Urine 0-2 /LPF (0-2); RBC Urine 0-2 /HPF (0-2); Squamous Epithelial Cell Urine 0-2 /HPF (0-2); UACC Culture Trigger YES; WBC Urine 21-50 /HPF (0-5)
[2024-12-04 13:26] LABS: Prothrombin Time 12.1 SEC (10.9-12.4)
[2024-12-04 13:35] LABS: Alanine Aminotransferase 14 U/L (0-31); Albumin Level 4.1 g/dL (3.5-5.0); Alkaline Phosphatase 57 U/L (39-117); Anion Gap 11 (12-20); Aspartate Amino Transferase 25 U/L (5-31); Bilirubin Total 0.7 mg/dL (0.0-1.0); Blood Urea Nitrogen 17 mg/dL (9-16); Calcium 9.5 mg/dL (8.4-10.2); Carbon Dioxide 22 mmol/L (22-29); Chloride 111 mmol/L (96-108); Creatinine Clr Calc Pharmacy 49.3; Estimated Glomerular Filt Rate > 60; Glucose Random 88 mg/dL (60-115); Potassium 3.2 mmol/L (3.3-5.1); Sodium 141 mmol/L (135-145); Total Protein 7.1 g/dL (6.5-8.0)
--- NOTE | 2024-12-04 14:05 | PC.NURSE ---
Pt reports some effectiveness with pain meds; reporting mild nausea and pt urinating frequently; foul-smelling urine; pt having rigors; rectal temp 100.1; made aware
[2024-12-04] MEDS: Acetaminophen 1,000 MG/100 ML PIGGYBACK 400 MG IV (14:35)
[2024-12-04] MEDS: cefTRIAXone sodium 1 GM VIAL IVPUSH (14:37)
--- NOTE | 2024-12-04 14:47 | PC.NURSE ---
Pt declined second dose of morphine initially, then pain became acutely worse with positioning pt on bedpan; pt medicated with IV Tylenol for temp, Rocephin for UTI and Morphine for pain; purewick placed to avoid hurting pt's back more with bedpan usage; pt tolerating well; will reassess per protocol
[2024-12-04] MEDS: 0.9 % Sodium Chloride 1,000 ML 999 ML IV (14:55)
[2024-12-04 14:57] VITALS: BP 154/78; PULSE 82; TEMP 37.8; O2SAT 99
[2024-12-04 14:57] LABS: Lactic Acid 2.6 mmol/L (0.5-2.0)
--- NOTE | 2024-12-04 15:22 | PHA.MEDREC ---
Addendum entered by Marcelo Zelaya [facility] 12/04/24 15:47: med rec checked by [facility] Original Note: Pharmacy Consult ? Medication Reconciliation Pharmacy has completed the medication reconciliation. Spoke with patient to confirm. She took her medications last night, none today.
--- NOTE | 2024-12-04 15:39 | PM.IMHP ---
History of Present Illness Date of Service: 12/04/24 Chief Complaint: back pain 84F PMH HTN, hemochromatosis, nephrolithiasis presented with sudden onset severe back pain. Patient was not having any issues on a.m. of presentation. Reports she has been sitting and then got up and had significant low back pain 10 in 10, nonradiating, was still able to ambulate but with severe pain. So came to ED. Patient denies any dysuria or fever or chills. But in the ED did have a low-grade fever and was noted to have chills. UA was positive. CT showed grade 1 anterolisthesis of L4 on L5 with posterior spinal fixation hardware in place no evidence of hardware complication, moderate to advanced multilevel degenerative changes, nonobstructing right stone. Review of Systems Review of Systems: Yes all other systems are reviewed and are negative [facility] Medical History Hemochromatosis Renal cyst History of kidney stones Restless leg syndrome Acid reflux Surgical History History of knee replacement History of back surgery Social History Alcohol intake: never Patient Tobacco Use Status: Never used Tobacco Smoked in Last 30 Days: No Use of substances other than those prescribed or required for medical reasons: No Advance Directives: No Advance Directives Information Provided: No Do you have a plan to hurt others: No Plan Current occupational status: retired Current occupation: right handed Meds Allergies Allergy/AdvReac Type Severity Reaction Status Date / Time bee pollen [BEE STINGS] Allergy Severe ANAPHYLAXIS Verified 12/04/24 12:21 celecoxib [From Celebrex] Allergy Severe INTERNAL Verified 12/04/24 12:21 BLEEDING Active Medications: Current Medications Ceftriaxone Sodium (Ceftriaxone Sodium 1 Gm Vial) 1 gm IVPUSH Q24H [place] Enoxaparin Sodium (Enoxaparin Sodium 40 Mg/0.4 Ml Syringe) 40 mg SUBCUT Q24H [place] Gabapentin (Gabapentin 300 Mg Capsule) 300 mg PO BEDTIME [place] Lidocaine (Lidocaine 4 % Patch Adh..Patch) 1 patch TRANSDERMA DAILY [place]; Protocol Mirtazapine (Mirtazapine 30 Mg Tablet) 30 mg PO BEDTIME [place] Multivitamins/Vitamin C (Multivitamin Tablet) 1 tab PO DAILY [place] Nifedipine (Nifedipine Er 30 Mg Tab.Er.24) 30 mg PO DAILY [place]; Protocol Non-Formulary Medication (Pyridoxine (Vitamin B6)) 100 mg PO DAILY [facility] Omeprazole (Omeprazole 40 Mg Capsule.Dr) 40 mg PO DAILY [facility] Ropinirole HCl (Ropinirole Hcl 1 Mg Tablet) 1 mg PO BEDTIME [place] Temazepam (Temazepam 15 Mg Capsule) 15 mg PO BEDTIME PRN PRN Reason: Sleep Vitamin D (Cholecalciferol (Vitamin D3) 25 Mcg Tablet) 25 mcg PO DAILY [place] Home Medications ?Medication ?Instructions ?Recorded ?Confirmed ?Last Taken ?Type gabapentin 300 mg capsule 300 mg PO BEDTIME 10/18/20 12/04/24 12/03/24 History nifedipine 30 mg tablet,extended 30 mg PO DAILY 10/18/20 12/04/24 12/03/24 History release 24 hr omeprazole 40 mg capsule,delayed 40 mg PO DAILY 10/18/20 12/04/24 12/03/24 History release ropinirole 1 mg tablet 1 mg PO BEDTIME 10/18/20 12/04/24 12/03/24 History temazepam 15 mg capsule 15 mg PO BEDTIME PRN Sleep 10/18/20 12/04/24 Unknown History cholecalciferol (vitamin D3) 25 25 mcg PO DAILY 10/11/22 12/04/24 12/03/24 History mcg (1,000 unit) capsule fluticasone propionate 50 2 spray intranasal DAILY PRN 10/11/22 12/04/24 Unknown History mcg/actuation nasal Allergy Symptoms spray,suspension multivitamin 1 tab PO DAILY 10/11/22 12/04/24 12/03/24 History mirtazapine 30 mg tablet 30 mg PO BEDTIME 05/06/23 12/04/24 12/03/24 History Physical Exam Vital Signs and Narrative: Vital Signs: Last Vital Signs Temp 100.1 F 12/04/24 14:57 Pulse 82 12/04/24 14:57 Resp 24 H 12/04/24 12:17 BP 154/78 H 12/04/24 14:57 Pulse Ox 99 12/04/24 14:57 O2 Del Method Room Air 12/04/24 14:57 BMI result Body Mass Index 29.5 General: AO X 3, no acute distress Resp: CTA bilateral, no accessory muscles used CVS: S1,S2,RRR GI: soft, non tender, non distended Neuro: motor grossly intact, alert Psych: appropriate affect, appropriate insight Results Labs 12/04/24 13:13 12/04/24 13:13 Labs: Laboratory Results - last 24 hr 12/04/24 12/04/24 13:13 14:33 MCV 97.5 MCH 35.4 H MCHC 36.3 H RDW 12.6 Plt Count 199 MPV 11.4 Immature Gran % (Auto) 0.2 Neut % (Auto) 46.5 Lymph % (Auto) 44.4 H [place] % (Auto) 7.9 Eos % (Auto) 0.4 Baso % (Auto) 0.6 Lymph # (Auto) 2.4 [place] # (Auto) 0.4 Eos # (Auto) 0.0 Baso # (Auto) 0.0 Abs Immat Gran (auto) 0.01 Absolute Neuts (auto) 2.5 Absolute Nucleated RBC 0.000 Nucleated RBC % (auto) 0.0 PT 12.1 INR 1.0 Anion Gap 11 L Estim Creat Clear Calc 49.3 Estimated GFR > 60 Random Glucose 88 Lactic Acid 2.6 H* Calcium 9.5 Total Bilirubin 0.7 AST 25 ALT 14 Alkaline Phosphatase 57 Total Protein 7.1 Albumin 4.1 Urine Color Yellow Urine Appearance Clear Urine pH >= 9.0 Ur Specific [place] <= 1.005 Urine Protein Negative Urine Glucose (UA) Negative Urine Ketones Negative Urine Blood Negative Urine Nitrite Positive H Ur Leukocyte Esterase Moderate (2+) H Urine RBC 0-2 Urine WBC 21-50 H Ur Squamous Epith Cells 0-2 Urine Bacteria 4+ Hyaline Casts 0-2 Assessment and Plan (1) Hemochromatosis: Status: Acute Plan 84F PMH HTN, hemochromatosis, nephrolithiasis presented with sudden onset severe back pain UTI Lactic acid due to compensated cirrhosis not sepsis Ceftriaxone, follow-up cultures Acute on chronic back pain Pain control, PT Hypertension Nifedipine Hemochromatosis Some findings of cirrhosis on CAT scan, appears to be fully compensated Follows with Dr. Kidd DVT prophylaxis with Lovenox Full Code Patient expected require 2 midnights inpatient to follow up cultures ensure defervescence, manage back pain Quality Stroke Does the patient have a stroke diagnosis?: No VTE Prior VTE?: No VTE Risk Level:: Medical - moderate - high VTE Device Contraindication: Treatment Not Indicated VTE Drug Contraindication: N/A - Med Ordered
[2024-12-04 15:40] LABS: Influenza A PCR NEGATIVE (Negative); Influenza B PCR NEGATIVE (Negative); Resp Syncy Virus RNA Qual PCR NEGATIVE (Negative); SARS COV2 PCR INHOUSE NEGATIVE (Negative)
[2024-12-04 15:52] VITALS: BP 142/78; PULSE 78; TEMP 37.2; O2SAT 99
--- NOTE | 2024-12-04 15:54 | PC.NURSE ---
Pt's temp and pain improved, per pt; 98.9 NV temp and 3/10 back discomfort; pt able to tolerate sitting in semi-Dean's position at this time and appears more comfortable; family at bedside; pt aware of pending admission
[2024-12-04 16:39] LABS: Reflex Lactate? Lactic Acid Added
[2024-12-04] MEDS: Lidocaine 4 % Patch ADH..PATCH 1 PATCH TRANSDERMA (17:22)
[2024-12-04] MEDS: Potassium Bicarbonate/Cit AC 25 MEQ TABLET.EFF PO (17:22)
[2024-12-04 17:35] LABS: ~Lactic Acid-LAB USE ONLY 0.8 mmol/L (0.5-2.0)
[2024-12-04 18:27] VITALS: BP 166/79; PULSE 79; RESP 17; TEMP 36.3; O2SAT 97
[2024-12-04] MEDS: Mirtazapine 30 MG TABLET PO (19:48)
[2024-12-04] MEDS: Gabapentin 300 MG CAPSULE PO (19:49)
[2024-12-04] MEDS: rOPINIRole HCL 1 MG TABLET PO (19:49)
[2024-12-04] MEDS: 0.9 % Sodium Chloride Flush 3 ML SYRINGE IVFLUSH (19:49)
[2024-12-04] MEDS: Acetaminophen 325 MG TABLET 650 MG PO (19:52)
[2024-12-04 21:33] VITALS: BMI 29.5
[2024-12-05 03:54] VITALS: BP 129/62; PULSE 76; RESP 18; TEMP 36.5; O2SAT 93
[2024-12-05 06:58] LABS: Anion Gap 13 (12-20); Blood Urea Nitrogen 13 mg/dL (9-16); Calcium 9.4 mg/dL (8.4-10.2); Carbon Dioxide 24 mmol/L (22-29); Chloride 107 mmol/L (96-108); Creatinine Clr Calc Pharmacy 47.4; Estimated Glomerular Filt Rate > 60; Glucose Random 104 mg/dL (60-115); Potassium 3.6 mmol/L (3.3-5.1); Sodium 140 mmol/L (135-145)
[2024-12-05 07:11] LABS: Hematocrit 38.3 % (37.0-47.0); Hemoglobin 13.2 g/dl (12.0-16.0); Mean Corpuscular HGB Conc 34.5 g/dl (31.0-35.0); Mean Corpuscular Hemoglobin 34.6 pg (27.0-33.0); Mean Corpuscular Volume 100.5 fL (80.0-98.0); Mean Platelet Volume 11.9 fL (9.4-12.3); Platelet Count 222 X10*3/uL (160-400); Red Blood Count 3.81 X10*6/uL (4.20-5.50)
[2024-12-05 07:33] VITALS: BP 138/68; PULSE 78; RESP 16; TEMP 36.9; O2SAT 93
--- NOTE | 2024-12-05 08:28 | P.PNIM_ITS ---
Subjective Subjective Date of Service: 12/05/24 Interval History: back pain improving Physical Exam 2 Vital Signs: Vital Signs: Last Vital Signs Temp 98.5 F 12/05/24 07:33 Pulse 78 12/05/24 07:33 Resp 16 12/05/24 07:33 BP 138/68 12/05/24 07:33 Pulse Ox 93 12/05/24 07:33 O2 Del Method Room Air 12/05/24 07:33 BMI result Body Mass Index 29.5 General: AO X 3, no acute distress Resp: CTA bilateral, no accessory muscles used CVS: S1,S2,RRR GI: soft, non tender, non distended Neuro: motor grossly intact, alert Psych: appropriate affect, appropriate insight Objective Data Active Medications Acetaminophen (Acetaminophen 325 Mg Tablet) 650 mg PO Q6H PRN PRN Reason: Pain, Mild 1-3,fever,headache Last Admin: 12/04/24 19:52 Dose: 650 mg Documented By: ALEKSANDER Calcium Carbonate (Calcium Carbonate 750 Mg Tab.Chew) 750 mg PO Q4H PRN PRN Reason: Heartburn Ceftriaxone Sodium (Ceftriaxone Sodium 1 Gm Vial) 1 gm IVPUSH Q24H [place] Enoxaparin Sodium (Enoxaparin Sodium 40 Mg/0.4 Ml Syringe) 40 mg SUBCUT Q24H [place] Gabapentin (Gabapentin 300 Mg Capsule) 300 mg PO BEDTIME [facility] Last Admin: 12/04/24 19:49 Dose: 300 mg Documented By: ALEKSANDER Lidocaine (Lidocaine 4 % Patch Adh..Patch) 1 patch TRANSDERMA DAILY [place]; Protocol Last Admin: 12/04/24 17:22 Dose: 1 patch Documented By: NELSON Magnesium Hydroxide (Milk Of Magnesia 30 Ml Oral.Susp) 30 ml PO DAILY PRN PRN Reason: Constipation Melatonin (Melatonin 3 Mg Tablet) 6 mg PO BEDTIME PRN PRN Reason: Insomnia Mirtazapine (Mirtazapine 30 Mg Tablet) 30 mg PO BEDTIME [facility] Last Admin: 12/04/24 19:48 Dose: 30 mg Documented By: ALEKSANDER Multivitamins/Vitamin C (Multivitamin Tablet) 1 tab PO DAILY [place] Nifedipine (Nifedipine Er 30 Mg Tab.Er.24) 30 mg PO DAILY [place]; Protocol Omeprazole (Omeprazole 40 Mg Capsule.Dr) 40 mg PO DAILY [place] Pyridoxine HCl (Pyridoxine Hcl (Vitamin B6) 50 Mg Tablet) 100 mg PO DAILY [facility] Ropinirole HCl (Ropinirole Hcl 1 Mg Tablet) 1 mg PO BEDTIME [facility] Last Admin: 12/04/24 19:49 Dose: 1 mg Documented By: ALEKSANDER Sodium Chloride (0.9 % Sodium Chloride Flush 3 Ml Syringe) 3 ml IVFLUSH QSHIFT [facility] Last Admin: 12/04/24 19:49 Dose: 3 ml Documented By: ALEKSANDER Temazepam (Temazepam 15 Mg Capsule) 15 mg PO BEDTIME PRN PRN Reason: Sleep Vitamin D (Cholecalciferol (Vitamin D3) 25 Mcg Tablet) 25 mcg PO DAILY [facility] Labs 12/05/24 06:05 12/05/24 06:05 Labs: Laboratory Results - last 24 hr 12/04/24 12/04/24 12/04/24 13:13 14:33 17:16 MCV 97.5 MCH 35.4 H MCHC 36.3 H RDW 12.6 Plt Count 199 MPV 11.4 Immature Gran % (Auto) 0.2 Neut % (Auto) 46.5 Lymph % (Auto) 44.4 H [place] % (Auto) 7.9 Eos % (Auto) 0.4 Baso % (Auto) 0.6 Lymph # (Auto) 2.4 [place] # (Auto) 0.4 Eos # (Auto) 0.0 Baso # (Auto) 0.0 Abs Immat Gran (auto) 0.01 Absolute Neuts (auto) 2.5 Absolute Nucleated RBC 0.000 Nucleated RBC % (auto) 0.0 PT 12.1 INR 1.0 Anion Gap 11 L Estim Creat Clear Calc 49.3 Estimated GFR > 60 Random Glucose 88 Lactic Acid 2.6 H* Lactic Acid F/U @ 2Hr 0.8 Calcium 9.5 Total Bilirubin 0.7 AST 25 ALT 14 Alkaline Phosphatase 57 Total Protein 7.1 Albumin 4.1 Urine Color Yellow Urine Appearance Clear Urine pH >= 9.0 Ur Specific [place] <= 1.005 Urine Protein Negative Urine Glucose (UA) Negative Urine Ketones Negative Urine Blood Negative Urine Nitrite Positive H Ur Leukocyte Esterase Moderate (2+) H Urine RBC 0-2 Urine WBC 21-50 H Ur Squamous Epith Cells 0-2 Urine Bacteria 4+ Hyaline Casts 0-2 Influenza Type A (PCR) NEGATIVE Influenza Type B (PCR) NEGATIVE RSV RNA Qual (PCR) NEGATIVE SARS-CoV-2 RNA (RT-PCR) NEGATIVE 12/05/24 06:05 MCV 100.5 H MCH 34.6 H MCHC 34.5 RDW 13.0 Plt Count 222 MPV 11.9 Immature Gran % (Auto) Neut % (Auto) Lymph % (Auto) [place] % (Auto) Eos % (Auto) Baso % (Auto) Lymph # (Auto) [place] # (Auto) Eos # (Auto) Baso # (Auto) Abs Immat Gran (auto) Absolute Neuts (auto) Absolute Nucleated RBC 0.000 Nucleated RBC % (auto) 0.0 PT INR Anion Gap 13 Estim Creat Clear Calc 47.4 Estimated GFR > 60 Random Glucose 104 Lactic Acid Lactic Acid F/U @ 2Hr Calcium 9.4 Total Bilirubin AST ALT Alkaline Phosphatase Total Protein Albumin Urine Color Urine Appearance Urine pH Ur Specific [place] Urine Protein Urine Glucose (UA) Urine Ketones Urine Blood Urine Nitrite Ur Leukocyte Esterase Urine RBC Urine WBC Ur Squamous Epith Cells Urine Bacteria Hyaline Casts Influenza Type A (PCR) Influenza Type B (PCR) RSV RNA Qual (PCR) SARS-CoV-2 RNA (RT-PCR) Microbiology Microbiology Results: Microbiology 12/04/24 Unknown Urine Culture - Preliminary Urine clean catch - Clean Catch Midstream Culture in progress. Assessment and Plan (1) Hemochromatosis: Status: Acute Plan 84F PMH HTN, hemochromatosis, nephrolithiasis presented with sudden onset severe back pain UTI Lactic acid due to compensated cirrhosis not sepsis Ceftriaxone, follow-up cultures Acute on chronic back pain Pain control, PT improving Hypertension Nifedipine Hemochromatosis Some findings of cirrhosis on CAT scan, appears to be fully compensated Follows with Dr. Kidd DVT prophylaxis with Lovenox Full Code reason for continued hospitalization:cultures pending Quality Stroke Does the patient have a stroke diagnosis?: No VTE Prior VTE?: No VTE Risk Level:: Medical - moderate - high VTE Device Contraindication: Treatment Not Indicated VTE Drug Contraindication: N/A - Med Ordered
[2024-12-05] MEDS: Omeprazole 40 MG CAPSULE.DR PO (08:34)
[2024-12-05] MEDS: Multivitamin TABLET 1 TAB PO (08:34)
[2024-12-05] MEDS: Pyridoxine HCl (Vitamin B6) 50 MG TABLET 100 MG PO (08:34)
[2024-12-05] MEDS: NIFEdipine ER 30 MG TAB.ER.24 PO (08:35)
[2024-12-05] MEDS: Cholecalciferol (Vitamin D3) 25 MCG TABLET PO (08:35)
[2024-12-05] MEDS: Enoxaparin Sodium 40 MG/0.4 ML SYRINGE SUBCUT (08:35)
[2024-12-05] MEDS: Acetaminophen 325 MG TABLET 650 MG PO ×2 (08:35→20:47)
[2024-12-05] MEDS: Lidocaine 4 % Patch ADH..PATCH 1 PATCH TRANSDERMA (08:35)
[2024-12-05] MEDS: 0.9 % Sodium Chloride Flush 3 ML SYRINGE IVFLUSH ×3 (08:37→20:48)
--- NOTE | 2024-12-05 13:36 | MHC.CM.PN ---
Addendum entered by Margarette Rascon 12/05/24 13:52: A copy of the patient's HCP has been requested. Addendum entered by Margarette Rascon 12/05/24 13:49: A copy of pts HCP has been requested. Original Note: IMM 12/05/24 Sudden onset intractable pain. Patient states that she lives by herself, she is independent. CT AB/Pelvis Grade 1 L-4+L-5 Anterolisthesis, degenerative changes spine, Non obstructing Renal stone and Diverticulosis. PCP Dr Brown retired. Patient has an appointment with a new PCP, Dr Worrell, Gladys. Her 1st appointment scheduled in January 2025. Patient will not qualify for home services until she sees her new PCP. DP pending PT eval STR via BLS vs home private transport.
[2024-12-05] MEDS: cefTRIAXone sodium 1 GM VIAL IVPUSH (14:33)
[2024-12-05 15:17] VITALS: BP 152/68; PULSE 83; RESP 18; TEMP 37.5; O2SAT 91
[2024-12-05 19:38] VITALS: BP 108/56; PULSE 74; RESP 18; TEMP 36.6; O2SAT 91
[2024-12-05] MEDS: rOPINIRole HCL 1 MG TABLET PO (20:48)
[2024-12-05] MEDS: Mirtazapine 30 MG TABLET PO (20:48)
[2024-12-05] MEDS: Gabapentin 300 MG CAPSULE PO (20:48)
[2024-12-05] MEDS: Temazepam 15 MG CAPSULE PO (20:52)
[2024-12-06 04:00] VITALS: BP 122/93; PULSE 89; RESP 18; TEMP 36.3; O2SAT 95
[2024-12-06 07:11] VITALS: BP 126/60; PULSE 78; RESP 16; TEMP 37.1; O2SAT 94
[2024-12-06] MEDS: 0.9 % Sodium Chloride Flush 3 ML SYRINGE IVFLUSH (07:34)
[2024-12-06] MEDS: Multivitamin TABLET 1 TAB PO (07:35)
[2024-12-06] MEDS: Lidocaine 4 % Patch ADH..PATCH 1 PATCH TRANSDERMA (07:35)
[2024-12-06] MEDS: Cholecalciferol (Vitamin D3) 25 MCG TABLET PO (07:35)
[2024-12-06] MEDS: Omeprazole 40 MG CAPSULE.DR PO (07:35)
[2024-12-06] MEDS: Pyridoxine HCl (Vitamin B6) 50 MG TABLET 100 MG PO (07:35)
[2024-12-06] MEDS: NIFEdipine ER 30 MG TAB.ER.24 PO (07:35)
[2024-12-06] MEDS: Enoxaparin Sodium 40 MG/0.4 ML SYRINGE SUBCUT (09:31)
--- NOTE | 2024-12-06 10:48 | P.DS_ITS ---
DS: Providers Provider Date of Service: 12/06/24 Date of admission: 12/04/24 15:38 Date of discharge: 12/06/24 Primary care physician: Betsey Pastrana MD DS: Diagnosis Discharge Diagnosis (1) Hemochromatosis: Status: Acute DS: Summary Hospital Course Hospital Course: from initial hpi: 84F PMH HTN, hemochromatosis, nephrolithiasis presented with sudden onset severe back pain. Patient was not having any issues on a.m. of presentation. Reports she has been sitting and then got up and had significant low back pain 10 in 10, nonradiating, was still able to ambulate but with severe pain. So came to ED. Patient denies any dysuria or fever or chills. But in the ED did have a low- grade fever and was noted to have chills. UA was positive. CT showed grade 1 anterolisthesis of L4 on L5 with posterior spinal fixation hardware in place no evidence of hardware complication, moderate to advanced multilevel degenerative changes, nonobstructing right stone. hospital course: Patient was admitted for urinary tract infection, lactic acid due to compensated cirrhosis not sepsis. Was treated with ceftriaxone, cultures were negative but we will continue 5 more days of Ceftin on discharge. For acute on chronic back pain was controlled with pain meds, now much improved, worked with physical therapy recommended home with services. For hypertension was continued on nifedipine. For history of hemochromatosis she does have some findings of cirrhosis on CAT scan but appears to be fully compensated. She follows outpatient with Dr. Kidd. Time Attestation Discharge Coordination Time (in mins): 37 Quality: Safe Use of Opioids Does Pt have an Active Cancer Diagnosis on the Problem List?: No Quality: Stroke Does the patient have a stroke diagnosis?: No Physical Exam Vital Signs: Vital Signs: Last Vital Signs Temp 98.8 F 12/06/24 07:11 Pulse 78 12/06/24 07:11 Resp 16 12/06/24 07:11 BP 126/60 12/06/24 07:11 Pulse Ox 94 12/06/24 07:11 O2 Del Method Room Air 12/06/24 07:11 BMI result Body Mass Index 29.5 General: AO X 3, no acute distress Resp: CTA bilateral, no accessory muscles used CVS: S1,S2,RRR GI: soft, non tender, non distended Neuro: motor grossly intact, alert Psych: appropriate affect, appropriate insight DS: Data Data Completed and Pending Labs on day of discharge: Preliminary micro results at discharge 12/04/24 15:55 Blood Culture - Preliminary Blood - Venous No growth after 24 hours. 12/04/24 15:46 Blood Culture - Preliminary Blood - Venous No growth after 24 hours. Discharge Plan Discharge Anticipated Discharge Date/Time: 12/06/24 10:45 Patient Disposition: Home Health Service Discharge Diagnosis: UTI, back pain Referrals: Betsey Pastrana MD [Primary Care Provider] - 1 Week Discharge Medications: New cefuroxime axetil 500 mg tablet 500 mg PO BID Qty: 10 0RF Continued nifedipine 30 mg tablet extended release 24hr 30 mg PO DAILY omeprazole 40 mg capsule,delayed release(DR/EC) 40 mg PO DAILY gabapentin 300 mg capsule 300 mg PO BEDTIME ropinirole 1 mg tablet 1 mg PO BEDTIME temazepam 15 mg capsule 15 mg PO BEDTIME PRN (Reason: Sleep) pyridoxine (vitamin B6) 100 mg tablet 100 mg PO DAILY 90 Days Qty: 90 1RF fluticasone propionate 50 mcg/actuation spray,suspension 2 spray intranasal DAILY PRN (Reason: Allergy Symptoms) cholecalciferol (vitamin D3) 25 mcg (1,000 unit) capsule 25 mcg PO DAILY multivitamin Tablet 1 tab PO DAILY mirtazapine 30 mg tablet 30 mg PO BEDTIME Discharge Orders: Discharge Order (Routine); Ordered 12/06/24 Ordered By: Luis Daniel Naqvi Diet: Advance to usual diet Activity on Discharge: As tolerated Stand Alone Forms: Patient Portal Discharge page Print Language: Nauruan Care Plan Goals: Recovery Health Concerns: UTI, back pain Plan of Treatment: Five days Ceftin, physical therapy Assessment: See above
--- NOTE | 2024-12-06 10:48 | W.MHC.F2F ---
Service Date Service Date: 12/06/24 Encounter Date of encounter: 12/06/24 Reasons for Services Signs and symptoms assessed: back pain Reason for physical therapy: home safety and mobility and therapeutic exercises Homebound: Leaving the home is medically contraindicated at this time without the asist of a device and/or another person due th the listed conditions above and below. Reason homebound: pain with ambulation Certification: Based on the above findings, I certify that this patient is confined to the home and needs intermittent jail care, physical therapy and/or speech therapy, or continues to need occupational therapy. The patient is under my care, and I have initiated the establishment of the plan of care. The patient will be followed by a physician who will periodically review the plan of care. Time Spent With Patient Time: Total time managing care of this patient today ____ minutes.
--- NOTE | 2024-12-06 11:09 | MHC.CM.PN ---
Addendum entered by Margarette Rascon 12/06/24 12:14: Patient will not discharge with home services. A PCP is required to sign orders for home care. She has not been seen by her new PCP yet, so she does not qualify for home services. Original Note: IMM 12/05/24 Patient is discharged today to home. Home services ordered. [facility] referred at the patients request. Patient has arranged for transportation home.
[2024-12-06 12:46] VITALS: BP 141/76; PULSE 85; RESP 18; TEMP 36.6; O2SAT 99
== END 2024-12-06 12:48 | disposition home or self-care (01) | DRG 690 ==
LOC: HO.ED 14:19 → HO.EDOVER 15:46 → HO.S3 17:18
PROVIDERS: Admitting Provider Internal Medicine; Emergency Provider Internal Medicine; PCP Family Medicine; Visit Provider Internal Medicine
DX: N39.0 Urinary tract infection, site not specified (principal); E87.20 Acidosis, unspecified; K74.60 Unspecified cirrhosis of liver; E83.119 Hemochromatosis, unspecified; M54.9 Dorsalgia, unspecified; G89.29 Other chronic pain; I10 Essential (primary) hypertension; Z20.822 Contact with and (suspected) exposure to COVID-19; Z87.442 Personal history of urinary calculi; Z79.899 Other long term (current) drug therapy
CPT/HCPCS: 0241U; 36415; 71045; 74176; 80048; 80053; 81001; 83605; 85025; 85027; 85610; 87040; 87086; 97162; 99218; 99285; J0131; J0696; J1650; J2270; J2405

== ENCOUNTER → 2024-12-04 12:49 | Outpatient (BNV) | payer MEDICARE, SELFPAY | PROVIDERS: Emergency Provider Internal Medicine; Visit Provider Radiology Diagnostic Radiology | DX: M54.50 Low back pain, unspecified (principal); R06.02 Shortness of breath | CPT/HCPCS: 71045; 74176 ==

== ENCOUNTER → 2024-12-04 15:38 | Outpatient (BNV) | payer MEDICARE, SELFPAY | PROVIDERS: Admitting Provider Internal Medicine; Emergency Provider Internal Medicine; Visit Provider Internal Medicine | DX: E83.119 Hemochromatosis, unspecified (principal) | CPT/HCPCS: 99232 ==

== ENCOUNTER 2025-03-18 06:50 | Outpatient (REF) | payer MEDICARE, SELFPAY ==
[2025-03-18 07:16] LABS: MANUAL DIFF FLAG NO
[2025-03-18 07:45] LABS: Hematocrit 36.4 % (37.0-47.0); Hemoglobin 12.7 g/dl (12.0-16.0); Imm Gran Abs Auto 0.00 X10*3/uL (0.00-0.03); Imm Gran Pct Auto 0.0 % (0.0-0.4); Lymphocytes Absolute Auto 1.6 X10*3/uL (1.2-4.9); Mean Corpuscular HGB Conc 34.9 g/dl (31.0-35.0); Mean Corpuscular Hemoglobin 34.8 pg (27.0-33.0); Mean Corpuscular Volume 99.7 fL (80.0-98.0); NRBC Abs Auto 0.000 X10*3/uL (0.0-0.012); NRBC Pct Auto 0.0 /100WBC (0.0-0.2); Platelet Count 210 X10*3/uL (160-400); Red Blood Count 3.65 X10*6/uL (4.20-5.50); White Blood Count 3.4 X10*3/uL (4.8-10.8)
[2025-03-18 08:36] LABS: Alanine Aminotransferase 15 U/L (0-31); Albumin Level 4.1 g/dL (3.5-5.0); Alkaline Phosphatase 53 U/L (39-117); Anion Gap 10 (12-20); Aspartate Amino Transferase 22 U/L (5-31); Blood Urea Nitrogen 9 mg/dL (9-16); Calcium 9.0 mg/dL (8.4-10.2); Carbon Dioxide 27 mmol/L (22-29); Chloride 103 mmol/L (96-108); Cholesterol 157 mg/dL (<200); Estimated Glomerular Filt Rate > 60; HDL Cholesterol 47 mg/dL (>40); Potassium 4.2 mmol/L (3.3-5.1); Sodium 136 mmol/L (135-145); Total Protein 6.6 g/dL (6.5-8.0); Triglycerides 74 mg/dL (<150)
[2025-03-18 08:55] LABS: Ferritin 333 ng/mL (10-250)
== END 2025-03-18 06:51 | disposition home or self-care (01) ==
LOC: HO.LAB 06:50
PROVIDERS: PCP Internal Medicine Medical Oncology; Visit Provider Internal Medicine Medical Oncology
DX: E83.110 Hereditary hemochromatosis (principal); E66.3 Overweight; I10 Essential (primary) hypertension; D64.9 Anemia, unspecified
CPT/HCPCS: 36415; 80053; 80061; 82105; 82728; 85025

== ENCOUNTER 2025-04-26 11:18 | Outpatient (REF) | payer MEDICARE, SELFPAY ==
--- OUTSIDE RECORDS SUMMARY | 2024-03-17 05:00 | XMS_ITS ---
Author Organization Nikhil Kidd III, MD Address [address] [place] [address] [address] [place] [address] Care Team Providers Care Cone Operator Name Role Phone Erlin Brown MD Primary Care Provider Nikhil Carranza Unavailable [phone] Allergies Allergen (clinical drug ingredient) Drug/Non Drug [...] Date Provider Diagnosis Nikhil Kidd III, MD [address] [place] [address] [place] [address] 03/17/2024 Nikhil Kidd Hereditary hemochromatosis E83.110 ; [...] V Provider Name:Nikhil Kidd, 03/23/2026 09:00:00 AM, [address] [place] [address] , [place] [address], [place], [address], Progress Notes * JUSTIN HAYS ADOB:[birth year] (83 yo F)Acc No.[id number]:03/17/2024 Progress Notes Patient: Dami JUICEMARTIJUSTIN Cornelio Provider: Ericka Kidd MD :1940 A ge:83 Y S ex:Female Date:03/17/2024 Address:[address] [place] [address], [place] [id number] Pcp:Erlin Brown MD Subjective: * Chief Complaints: [...] 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 * Medications: T akingB6 Natural 100 [...] - 03/08/2024) (Collection Date - 03/08/2024) ?ValueReference Range?Adqabuizqhvqs017<150 - mg/dL ?Hqsslwaksoc213<200 - mg/dL?LDL Cholesterol Soskzqxubw93<100 - mg/dL?HDL Tbxloaklpcm65>40 - mg/dL * Examination: G eneral Examination: [...] 03/17/2024 Generated for Printi ng/Faxing/eTransmitting on: 0 04/26/2025 12:50 PM EDT History and Physical Notes * HPI (History of Present Illness) Category Sub-Category Detail Notes COVID-19 Screening Questions Have you had any new onset fever, chills, cough, congestion, sore throat, shortness of breath, muscle aches?: No Have you been exposed to the virus withi n the last 10 days?: No Have you travelled internationally in [facility] last 10 days?: No Have you been [...]
--- NOTE | ~2025-04-26 | US_ITS ---
CLINICAL HISTORY: N20.0 - Calculus of kidney US Renal Comparison: US/IL/SR - US KIDNEY BILATERAL - 04/26/24 11:16 EDT Findings: Right kidney normal size and echotexture, 9.7 cm length. 6 cm midpole benign cyst. 0.4 cm lower pole calculus. Left kidney normal size and echotexture, 8.3 cm length. No hydronephrosis of either kidney. Normal color Doppler IMPRESSION: Nonobstructing right renal calculus and benign renal cyst. This document has been electronically signed by: Marty Reyes MD on 04/27/2025 19:48:18
--- OUTSIDE RECORDS SUMMARY | 2025-04-26 12:51 | XMS_ITS | Clinical Summary ---
Author Organization [facility] Address [address] [place] [address] Phone Care Team Providers Care Rigging Up Man Name Role Phone Betsey Pastrana MD, MPH Primary Care Provid er Allergies Active Allergy Reactions Criticality Noted Date Comments Bee Pollen 02/04/2025 Celecoxib Unknown 02/04/2025 Mold Extracts 02/04/2025 Medications omeprazole (PRILOSEC) 40 MG capsule Take 40 mg by mouth daily. Active pyridoxine, vitamin B6, (B-6) 100 MG tablet Take 100 mg by mouth daily. Active rOPINIRole (REQUIP) 1 MG tablet TAKE 1 TABLET(1 MG) BY MOUTH EVERY NIGHT AT BEDTIME 30 tablet 03/03/20 25 Active mirtazapine (REMERON) 30 MG tablet TAKE 1 TABLET(30 MG) BY MOUTH EVERY NIGHT AT BEDTIME 30 tablet 03/29/20 25 Active temazepam (RESTORIL) 15 mg capsule Take 15 mg by mouth nightly at bedtime as needed for anxiety. 025 Discontinued(No longer taking) gabapentin (NEURONTIN) 300 MG capsule TAKE 1 CAPSULE(300 MG) BY MOUTH EVERY NIGHT AT BEDTIME 30 capsule 03/03/20 25 025 Discontinued mirtazapine (REMERON) 30 MG tablet TAKE 1 TABLET(30 MG) BY MOUTH EVERY NIGHT AT BEDTIME 30 tablet 03/03/20 25 025 Discontinued gabapentin (NEURONTIN) 300 MG capsule TAKE 1 CAPSULE(300 MG) BY MOUTH EVERY NIGHT AT BEDTIME 30 capsule 03/29/20 25 025 Discontinued(No longer taking) Active Problems Problem Noted Date Diagnosed Date Mild anemia 04/07/2025 Essential hypertension 04/07/2025 Hereditary hemochromatosis 04/07/2025 Restless leg syndrome 04/07/2025 Encounters Date Type Department Care Team Description 04/07/2025 8:00 AM EDT Office Visit [address] [place] [address] Ashanti Camp MD Essential hypertension (Primary Dx); Restless leg syndrome; Hereditary hemochromatosis 03/29/[address] [place] [address] Ashanti Camp MD Medication Refill (GABAPENTIN 300MG CAPSULES/Remelon) 03/03/[address] [place] [address] Betsey Pastrana MD, MPH Medication Refill 02/04/2025 10:20 AM EDT Office Visit [address] [place] [address] Betsey Pastrana MD, MPH Restless leg syndrome (Primary Dx); Hereditary hemochromatosis; Gastroesophageal reflux disease without esophagitis; Essential hypertension; Diminished hearing, bilateral; Osteoporosis, unspecified osteoporosis type, unspecified pathological fracture presence 01/24/[address] [place] [address] Betsey Pastrana MD, MPH Medication Refill 01/24/[address] [place] [address] Shayy Zuñiga, RN Appointment from Last 3 Months Immunizations Immunization Administration Dates Next Due Influenza High-Dose Quadriva lent Preservative Free IM 06/17/2022,05/08/2021,04/25/2020 Influenza High-Dose Trivalen t Preservative Free IM 06/07/2024,05/18/2018,05/27/2017 Influenza Trivalent Adjuvant ed Preservative free IM 05/05/2019 Pneumococcal conjugate PCV13 05/27/2017 RSV Vaccine (monovalent, adjuvanted) 06/07/2024 Tdap 05/26/2020,11/09/2018 Family History Medical History Relation Comments Heart attack Father massive DC when driving his car Liver cancer Sister 1 Liver cancer Sister 2 Relation Status Comments Father (Age 66) Mother (Age 89) Sister 1 Sister 2 Social History Tobacco Use Types Packs/Day Years Used Date Smoking Tobacco: Never Passive Smoke Exposure: Never Smokeless Tobacco: Never Tobacco Cessation:Counseling Given: Not Answered Alcohol Use Standard Drinks/Week Comments Never 0 (1 standard drink = 0.6 oz pur e alcohol) Child or Family Care Answer Date Record ed Do you have problems with on e of the following making it difficult for you to work, study, or receive health care? No 02/04/2025 Education Answer Date Recorded Are you interested in more education? Not on erica e 11/18/2024 Are you concerned about learning? Not on file 11/18/2024 No 11/18/2024 No 11/18/2024 Food Answer Date Recorded Within the past 6 months we worried whether our food would run out before we got money to buy more. Never True 02/04/2025 Within the past 6 months the food we bought just didn't last and we didn't have enough money to get more. Never True Residential Stability Answer Date Recor ded What is your housing situation today? I have riley sing 02/04/2025 How many times have you move d in the past 12 months? Zero (I did not move) 02/04/2025 Paying for Meds Answer Date Recorded Do you have trouble paying for medicines? No 02/04/2025 Paying Utility Bills Answer Date Record ed Do you have trouble paying your heating or elect ricity bill? No 02/04/2025 Transportation Answer Date Recorded Has the lack of transportati on kept you from medical appointments or from getting medications? No 02/04/2025 Digital Access Answer Date Recorded Yes 02/04/2025 No 02/04/2025 Do you have reliable internet access at home? No 02/04/2025 Do you have a device (e.g., phone, tablet, computer) with a working camera? No 02/04/2025 Comments Unknown Sex and Gender Information Value Date Recorded Sex Assigned at Not on file Legal Sex Female 11:13 AM EST Gender Identity Not on file Sexual Orientation Not on file Last Filed Vital Signs Vital Sign Reading Time Taken Comments Blood Pressure 130/78 04/07/2025 8:05 AM EDT Pulse 59 04/07/2025 8:05 AM EDT Temperature - - Respiratory Rate - - Oxygen Saturation 99% 04/07/2025 8:05 AM EDT Inhaled Oxygen Concentration - - Weight 69.5 kg (153 lb 3.2 oz) 04/07/2025 8:05 A M EDT Height 153 cm (5' 0.24 ) 02/04/2025 9:49 AM EDT Body Mass Index 29.69 02/04/2025 9:49 AM EDT Plan of Treatment Health Maintenance Due Date Last Done Comments DEPRESSION SCREENING 1951 ZOSTER VACCINES (1 of 2) 1989 OSTEOPOROSIS SCREENING INITIAL (ONE-TIME) 2004 PNEUMOCOCCAL VACCINES (50+ years) (2 of 2 - PPSV23) 05/27/2018 05/27/2017 COVID-19 VACCINE ( season) 2024 06/07/2024, 06/21/2022, 07/05/2021, Additional history exists BLOOD PRESSURE 10/08/2025 04/07/2025 Adult Td,Tdap Booster 05/26/2030 05/26/2020, 019 RSV VACCINE Completed 06/07/2024 HEPATITIS A VACCINES Aged Out No long er eligible based on patient's age to complete this topic HIB VACCINES Aged Out No longer eligi ble based on patient's age to complete this topic MENINGOCOCCAL VACCINES (ACWY) Aged Out No longer eligible based on patient's age to complete this topic MENINGOCOCCAL VACCINES (B) Aged Out N o longer eligible based on patient's age to complete this topic Medical Devices Not on file Insurance [place] [id number] [facility] MEDICARE REPLACEMENT MEDICARE PART A & B [facility] MEDICARE REPLACEMENT MEDICARE PART A & B [facility] MEDICARE REPLACEMENT MEDICARE PART A & B [facility] MEDICARE REPLACEMENT MEDICARE PART A & B [facility] MEDICARE REPLACEMENT MEDICARE PART A & B [facility] MEDICARE REPLACEMENT MEDICARE PART A & B Care Teams Rigging Up Man Relationship Specialty Start Date End Date Betsey Patsrana MD, MPH [address] [place] [id number] [email or web address] PCP - General Family Medicine 02/04/25 Additional Source Comments The information contained in this document represents components of the legal health record. It is not the complete legal health record.[facility]
--- OUTSIDE RECORDS SUMMARY | 2025-04-26 12:51 | XMS_ITS | Patient Health Record ---
Author Organization [facility] Address [address] [facility] [place] [address] Care Team Providers Care Assistant Clinical Director Name Role Phone Betsey Pastrana Primary Care Provider Unavail able Di Casillas Unavailable [phone] Allergies Allergen (clinical drug ingredient) Drug/Non Drug Allergy documented on EMR Reaction Allergy Type Onset Date Status celecoxib Celebrex Unknown Drug Allergy Active Bee Sting Unknown Allergy Active Reason For Referral No Information Medications Medication SIG (Take, Route, Frequency, Duration) Notes Start Date End Date Status Restoril 15 MG 1 capsule at bedtime as needed Orally Once a day Active Procardia XL 30 MG 1 tablet Orally Once a day; Duration: 30 day(s) Active Keflex 500 MG 1 capsule Orally fara ry 12 hrs; Duration: 5 days 04/01/2016 Not-Taking Vitamin B6 Active Remeron 30 MG 1 tablet at bedtime Orally Active Multivitamin Active Vitamin D 25 MCG (1000 UT) 1 tablet Orally Once a day Active oxyCODONE HCl 5 MG 0.5-1 tablet as need ed Orally every 4-6 hrs; Duration: 5 days 03/18/2023 Not-Taking aleve Not-Taking PriLOSEC OTC 20 MG 2 tablets Orally Onc e a day Active Physical Therapy . . . 2-3x/week; Duration: 3-4 weeks 05/30/2016 Not-Taking Keflex 500 MG 1 capsule Orally fara ry 12 hrs; Duration: 7 days 10/18/2020 Not-Taking Neurontin 300 MG 1 capsule Orally Active Immunizations Vaccine Route Administration Date Status Comme nts Influenza Unknown 05/09/2022 Administered Influenza Unknown 05/09/2024 Administered COVID-19 Moderna Vaccine Unknown 05/09/2022 Administered 1st 10/24/20,11/21/20 07/05/21 Social History Tobacco Use: Social History Observation [...] Are you an other tobacco user? No AUDIT-C (Standard) Question Answer Notes Did you have a drink containing alcohol in the p ast year? No Points 0 Interpretation Negative Vital Signs Blood pressure diastolic 70 mm Hg 03/15/2025 Height 5 ft 1 in in 03/15/2025 Blood pressure systolic 125 mm Hg 03/15/2025 Weight 145 lbs 03/15/2025 BMI 27.39 kg/m2 03/15/2025 Encounters Encounter Location Date Provider Diagnosis [address] [address] 05/19/2024 [facility] Tinea unguium B35.1 ; Metatarsalgia, left foot M77.42 ; Pain in left toe(s) M79.675 ; Pain in right toe(s) M79.674 ; Pain in left foot M79.672 ; Pain in left ankle and joints of left foot M25.572 and Bursitis of intermetatarsal bursa of left foot M77.[address] [address] 08/03/2024 [facility] Pain in right toe(s) M79.674 ; Onychomycosis B35.1 and Pain in left toe(s) M79.[address] [address] 10/19/2024 [facility] Pain in right toe(s) M79.674 ; Onychomycosis B35.1 and Pain in left toe(s) M79.[address] [address] 01/05/2025 [facility] Pain in right toe(s) M79.674 ; Onychomycosis B35.1 and Pain in left toe(s) M79.675 [facility] [place] [address] [place] [address] 03/15/2025 Di Casillas Pain in right toe(s) M79.674 ; Onychomycosis B35.1 and Pain in left toe(s) M79.675 Assessments Encounter Date Diagnosis (ICD Code) Assessment Notes Treatment Notes Treatment Clinical Notes Section Notes 05/19/2024 Tinea unguium (ICD-10 - B35.1) 05/19/2024 Metatarsalgia, left foot (ICD-10 - M77.42) 08/03/2024 Pain in right toe(s) (ICD-10 - M79.674) 08/03/2024 Onychomycosis (ICD-10 - B35.1) 10/19/2024 Pain in right toe(s) (ICD-10 - M79.674) 01/05/2025 Pain in right toe(s) (ICD-10 - M79.674) 03/15/2025 Pain in right toe(s) (ICD-10 - M79.674) 03/15/2025 Onychomycosis (ICD-10 - B35.1) 08/03/2024 Pain in left toe(s) (ICD-10 - M79.675) 01/05/2025 Onychomycosis (ICD-10 - B35.1) 10/19/2024 Onychomycosis (ICD-10 - B35.1) 05/19/2024 Pain in left toe(s) (ICD-10 - M79.675) 05/19/2024 Pain in right toe(s) (ICD-10 - M79.674) 01/05/2025 Pain in left toe(s) (ICD-10 - M79.675) 03/15/2025 Pain in left toe(s) (ICD-10 - M79.675) 10/19/2024 Pain in left toe(s) (ICD-10 - M79.675) 05/19/2024 Pain in left foot (ICD-10 - [...] X ray : Foot, left 3V 03/25/2023 10405-Rjxzlrzl Plate 04/01/2016 08757- Debride <25 sq cm 04/17/2016 57742-JEHODSB SKIN/TISSUE 10/02/2022 48384, Y4490-RYYJY/INJECT, JOINT/BURSA 1 09/25/2020 Next Appt Details Provider Name:Di gray, 06/08/2025 01:00:00 PM, [address] [place] [address], [phone], Insurance Providers Payer Name Payer Address Payer Phone Subscriber Number Group Number Insured Name Patient Relationship to Insured Coverage Start Date Coverage End Date [employer] Medicare Complete [address] [address] [place] [address] [phone] [id number] Rosa Maria Colunga Self - patient is the insured Medical (General) History Medical History History ICD Code Arthritis Cataracts Depression High blood pressure Reflux Scarlet fever Measles Mumps Chicken pox psoriasis (hands) joint,bone implants, screws hemochromatosis transfusions Surgical History Surgery Date(Month/Year) hysterectomy 1993 back surgery 2009 bilateral vein 1974 hammer toes knee replacement 2001 2010 back 2009 cataracts 2009 Lithotrispy, Kidney 2019 R hand 02/2022 Total excision 5th Met head Left foot P/ B 03/19/2023 Hospitalization History Reason Date(Month/Year) UTI, back issues 11/2024 transfusions 1974 2 ear surgeries 1964
--- OUTSIDE RECORDS SUMMARY | 2025-04-26 12:51 | XMS_ITS | Patient Health Record ---
Author Organization [facility] Address [address] [place] [address] Care Team Providers Care Cdl Company Driver Name Role Phone Kevin (RETIRED) Erlin ALCANTARA Primary Care Provide r Unavailable Rashawn Weinstein Jr Unavailable Reason For Referral No Information Plan Of Treatment No Information Insurance Providers Payer Name Payer Address Payer Phone Subscriber Number Group Number Insured Name Patient Relationship to Insured Coverage Start Date Coverage End Date [facility] [address] [address] [place] [address] [id number] JUSTIN HAYS Self - patient is the insured
== END 2025-04-26 11:19 | disposition home or self-care (01) ==
LOC: HO.HMGCX 11:18
PROVIDERS: PCP Internal Medicine Medical Oncology; Visit Provider Nurse Practitioner Family
DX: N20.0 Calculus of kidney (principal); N28.1 Cyst of kidney, acquired
CPT/HCPCS: 76775

== ENCOUNTER → 2025-04-26 11:20 | Outpatient (BNV) | payer MEDICARE, SELFPAY | PROVIDERS: PCP Internal Medicine Medical Oncology; Visit Provider Radiology Vascular & Interventional Radiology | DX: N20.0 Calculus of kidney (principal); N28.1 Cyst of kidney, acquired | CPT/HCPCS: 76775 ==

== ENCOUNTER 2025-05-05 09:15 | Outpatient (AMB) | payer MEDICARE, SELFPAY ==
--- OUTSIDE RECORDS SUMMARY | 2024-03-15 12:45 | XMS_ITS ---
Author Organization Nikhil Kidd III, MD Address [address] [place] [address] Care Team Providers Care Communication Manager Name Role Phone Erlin Brown MD Primary Care Provider Unavaila Nikhil Muñoz Unavailable [phone] REASON FOR VISIT Follow Up Encounters Encounter Location Date Provider Diagnosis Nikhil Kidd III, MD [address] [place] [address] [place] [address] 03/15/2024 Nikhil Kidd Plan Of Treatment Next Appt Details Provider Name:Nikhil Kidd, 03/23/2026 09:00:00 AM, [address] [place] [address] [place], [address], Progress Notes * MARTI HAYSJORIE ADOB:[birth year] (84 yo F)Acc No.[id number]:03/15/2024 Progress Notes Patient: JUSTIN CHUA Provider: Ericka Kidd MD :1940 A ge:83 Y S ex:Female Date:03/15/2024 Address:[address] [place], [place] [id number] Pcp:Erlin Brown MD Subjective: * Chief Complaints: [...] 03/15/2024 Generated for Jensen sparks/Lilliana/Irina on: 0 05/05/2025 10:16 AM IVETT
--- OUTSIDE RECORDS SUMMARY | 2024-03-17 05:00 | XMS_ITS ---
Author Organization Nikhil Kidd III, MD Address [address] [place] [address] [place] [address] Care Team Providers Care Manager Convention Name Role Phone Erlin Brown MD Primary Care Provider Nikhil Carranza Unavailable [phone] Allergies Allergen (clinical drug ingredient) Drug/Non Drug Allergy documented on EMR Reaction Allergy Type Onset Date Status celecoxib Celebrex Unknown Drug Allergy Active REASON FOR VISIT Hemochromatosis, Hypertension, Hearing loss, GERD Medications Medication SIG (Take, Route, Frequency, Duration) Notes Start Date End Date Status rOPINIRole HCl Activ e NIFEdipine ER Osmotic Release Active Procardia 10 MG 1 capsule Orally Active Gabapentin 300 MG 1 tablet Orally Once a day Active Mirtazapine 30 MG 1 tablet at bedtime Orally Once a day Active Omeprazole 40 MG 1 tablet Orally Once a day Active B6 Natural 100 MG 1 tablet Orally Once a day Active Temazepam 15 MG 1 capsule at bedtime as needed Orally Once a day Active Social History Tobacco Use: Social History Observation Description Date Details (start date - stop date) Never Smoker NA - NA Tobacco Use/Smoking Question Answer Notes Patient is a nonsmoker Additional Findings: Tobacco Non-User Aggressive non-smoker Vital Signs Temperature 98.0 degrees Fahrenheit 03/17/20 24 Blood pressure systolic 141 mm Hg 03/17/20 24 Blood pressure diastolic 69 mm Hg 024 Heart Rate 72 /min 03/17/2024 Height 63 in 03/17/2024 Weight 155 lbs 03/17/2024 BMI 27.45 kg/m2 03/17/2024 Encounters Encounter Location Date Provider Diagnosis Nikhil Kidd III, MD [address] [place] [address] [place] [address] 03/17/2024 Nikhil Kidd Hereditary hemochromatosis E83.110 ; Overweight E66.3 ; Essential hypertension I10 ; Osteoarthritis of both knees, unspecified osteoarthritis type M17.0 and Other depression F32.89 Assessments Encounter Date Diagnosis (ICD Code) Assessment Notes Treat ment Notes Treatment Clinical Notes 03/17/2024 Hereditary hemochromatosis (ICD-10 - E83.110) Her ferritin level is 254. Observation will continue. The iron level is 227. 03/17/2024 Overweight (ICD-10 - E66.3) Her body mass index is 27. She has lost 6 pounds since her last visit. Her nutritional status is excellent. 03/17/2024 Essential hypertensi on (ICD-10 - I10) Her blood pressure was elevated today. She was referred back to primary care for treatment. 03/17/2024 Osteoarthritis of akin th knees, unspecified osteoarthritis type (ICD-10 - M17.0) She has had bilateral knee replacements and is doing well. 03/17/2024 Other depression (ICD-10 - F32.89) She is very stated over the loss of her recently. She seems to be received but does not seem depressed. Plan Of Treatment Medication Medication Name Sig Start Date Stop Date Notes rOPINIRole HCl NIFEdipine ER Osmotic Release Procardia 10 MG 1 capsule Orally Gabapentin 300 MG 1 tablet Orally Once a day Mirtazapine 30 MG 1 tablet at bedtime Orally Once a day Omeprazole 40 MG 1 tablet Orally Once a day B6 Natural 100 MG 1 tablet Orally Once a day Temazepam 15 MG 1 capsule at bedtime as needed Orally Once a day Pending Test Test Name Order Date PROFILE, RANDOM (COMPREHENSIVE METABOLIC ) 03/17/2024 CBC WITH AUTO DIFF 03/17/2024 Ferritin 03/17/2024 Next Appt Details Follow Up: 1 Year, Reason: O V Provider Name:Nikhil Kidd, 03/23/2026 09:00:00 AM, [address] [place] [address] , [place] [address], [place], [address], Progress Notes * JUSTIN HAYS ADOB:[birth year] (83 yo F)Acc No.[id number]:03/17/2024 Progress Notes Patient: Dami JUICEMARTIJUSTIN Cornelio Provider: Ericka Kidd MD :1940 A ge:83 Y S ex:Female Date:03/17/2024 Address:[address] [place] [address], [place] [phone] Pcp:Erlin Brown MD Subjective: * Chief Complaints: * H emochromatosisHypertensionHearing lossGERD * HPI: C OVID-19 Screening: She returns for ongoing management of an elevated ferritin and a history of hereditary hemochromatosis. There was no sign of cardiomyopathy, pancreatic insufficiency or hepatic cirrhosis on today's examination. Her ferritin is mildly elevated was elected to continue to follow this without phlebotomy. Questions H ave you experienced fever, chills, cough, sore throat, shortness of breath, difficulty breathing, muscle aches, loss of taste or smell? N o H ave you been exposed to the virus within the last 10 days? N o H ave you travelled internationally in the last 10 days? N o H ave you been exposed to COVID-19 in the past? N o * ROS: G eneral/Constitutional: pain o nly normal aches and pains. C hills d enies.?Fatigue a dmits. F ever d enies. E NT: Decreased hearing m ild. R espiratory: Cough d enies. C ardiovascular: Chest pain with exertion d enies. D yspnea on exertion?denies. S hortness of breath d enies. G astrointestinal: Constipation o ccasional. D ecreased appetite d enies. D iarrhea d enies. H eartburn d enies. N ausea d enies. R ectal bleeding d enies. V omiting d enies. H ematology: bruising d enies. p etechiae d enies. S wollen glands n one have been noted. G enitourinary: Frequent urination o nce a night. M usculoskeletal: Muscle aches d enies. P ainful joints d enies. S ciatica d enies. W eakness d enies. S kin: Itching d enies. R claudia d enies. S kin lesion(s)?denies. N eurologic: Difficulty speaking d enies. D izziness d enies.?Headache d enies. L ow back pain d enies. P sychiatric: Depressed mood w hich is mild. * Medical History: * Surgical History: l eft knee replacement 2001right knee replacement 2011back surgery 2009TAH/BSO 1993upper endoscopy, antral ulcer 2002left knee arthroscopy 1985left myringotomy Tendon repair, Right hand 02/2022 * Hospitalization/Major Diagno stic Procedure: D enies Past Hospitalization * Family History: F ather: 62 yrs, diagnosed with CVD. M other: 89 yrs, diagnosed with CVD. S iblings: . 2 sister(s) - healthy. 2 son(s) , 1 daughter(s) - healthy. . her passed 06/12/2019. 2 sisters passed from Liver Cancer and they both had Hemochromatosis. 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 * Medications: T akingB6 Natural 100 MG Tablet 1 tablet Orally Once a dayTemazepam 15 MG Capsule 1 capsule at bedtime as needed Orally Once a dayOmeprazole 40 MG Capsule Delayed Release 1 tablet Orally Once a dayrOPINIRole HCl Gabapentin 300 MG Capsule 1 tablet Orally Once a dayMirtazapine 30 MG Tablet 1 tablet at bedtime Orally Once a dayNIFEdipine ER Osmotic Release Procardia 10 MG Capsule 1 capsule Orally Medication List reviewed and reconciled with the patientTaking B6 Natural 100 MG Tablet 1 tablet Orally Once a dayTaking Temazepam 15 MG Capsule 1 capsule at bedtime as needed Orally Once a dayTaking Omeprazole 40 MG Capsule Delayed Release 1 tablet Orally Once a dayTaking rOPINIRole HCl Taking Gabapentin 300 MG Capsule 1 tablet Orally Once a dayTaking Mirtazapine 30 MG Tablet 1 tablet at bedtime Orally Once a dayTaking NIFEdipine ER Osmotic Release Taking Procardia 10 MG Capsule 1 capsule Orally Medication List reviewed and reconciled with the patient * Allergies: C jacquelin[Allergies Verified] Objective: * Vitals: H t: 63, Wt:155, BMI:27.45, BP:141/69, HR:72, Temp:98.0, Wt-k.31. * P ast Orders: Lab:Ferritin * Order Date 03/08/2024 03/04/2023 10/07/2022 Ferritin 254 H (Ref Range: 10-250 ng/mL) 222 (Ref Range: 10-250 ng/mL) 209 (Ref Range: 10-250 ng/mL) * Lab:IRON PROFILE * Order Date 03/08/2024 03/04/2023 10/07/2022 Iron 227 H (Ref Range: 30-160 mcg/dL) 229 H (Ref Range: 30-160 mcg/dL) 242 H (Ref Range: 30-160 mcg/dL) Total Iron Binding Capacity 252 (Ref Range: 228-428 mcg/dL) 254 (Ref Range: 228-428 mcg/dL) 267 (Ref Range: 228-428 mcg/dL) Percent Iron Saturation 90 H (Ref Range: 15-50 %) 90 H (Ref Range: 15-50 %) 91 H (Ref Range: 15-50 %) Unsaturated Iron Binding < 25 (Ref Range: ug/dL) < 25 (Ref Range: ug/dL) < 25 (Ref Range: ug/dL) * Lab:Comprehensive Met. Panel * Order Date 03/08/2024 03/04/2023 10/07/2022 Sodium 138 (Ref Range: 135-145 mmol/L) 140 (Ref Range: 135-145 mmol/L) 140 (Ref Range: 135-145 mmol/L) Bilirubin Total 0.5 (Ref Range: 0.0-1.0 mg/dL) 0.6 (Ref Range: 0.0-1.0 mg/dL) 0.8 (Ref Range: 0.0-1.0 mg/dL) Aspartate Amino Transferase 21 (Ref Range: 5-31 U/L) 19 (Ref Range: 5-31 U/L) 22 (Ref Range: 5-31 U/L) Alanine Aminotransferase 14 (Ref Range: 0-31 U/L) 12 (Ref Range: 0-31 U/L) 15 (Ref Range: 0-31 U/L) Total Protein 6.8 (Ref Range: 6.5-8.0 g/dL) 6.3 L (Ref Range: 6.5-8.0 g/dL) 6.7 (Ref Range: 6.5-8.0 g/dL) Albumin Level 4.0 (Ref Range: 3.5-5.0 g/dL) 4.0 (Ref Range: 3.5-5.0 g/dL) 4.2 (Ref Range: 3.5-5.0 g/dL) Alkaline Phosphatase 47 (Ref Range: 39-117 U/L) 46 (Ref Range: 39-117 U/L) 52 (Ref Range: 39-117 U/L) Potassium 3.9 (Ref Range: 3.3-5.1 mmol/L) 4.1 (Ref Range: 3.3-5.1 mmol/L) 4.5 (Ref Range: 3.3-5.1 mmol/L) Chloride 104 (Ref Range: 96-108 mmol/L) 106 (Ref Range: 96-108 mmol/L) 104 (Ref Range: 96-108 mmol/L) Carbon Dioxide 26 (Ref Range: 22-29 mmol/L) 26 (Ref Range: 22-29 mmol/L) 28 (Ref Range: 22-29 mmol/L) Anion Gap 12 (Ref Range: 12-20) 12 (Ref Range: 12-20) 13 (Ref Range: 12-20) Blood Urea Nitrogen 14 (Ref Range: 9-16 mg/dL) 10 (Ref Range: 9-16 mg/dL) 17 H (Ref Range: 9-16 mg/dL) Creatinine 0.87 (Ref Range: 0.5-1.4 mg/dL) 0.77 (Ref Range: 0.5-1.4 mg/dL) 0.87 (Ref Range: 0.5-1.4 mg/dL) Estimated Glomerular Filt Rate > 60 > 60 > 60 Glucose Random 91 (Ref Range: 60-115 mg/dL) 94 (Ref Range: 60-115 mg/dL) 87 (Ref Range: 60-115 mg/dL) Calcium 9.6 (Ref Range: 8.4-10.2 mg/dL) 9.6 (Ref Range: 8.4-10.2 mg/dL) 9.6 (Ref Range: 8.4-10.2 mg/dL) * Lab:Complete Blood Count Aut o Diff * Order Date 03/08/2024 03/04/2023 10/07/2022 White Blood Count 3.5 L (Ref Range: 4.8-10.8 X10*3/uL) 3.3 L (Ref Range: 4.8-10.8 X10*3/uL) 4.4 L (Ref Range: 4.8-10.8 X10*3/uL) Red Blood Count 3.61 L (Ref Range: 4.20-5.50 X10*6/uL) 3.66 L (Ref Range: 4.20-5.50 X10*6/uL) 3.63 L (Ref Range: 4.20-5.50 X10*6/uL) Hemoglobin 12.8 (Ref Range: 12.0-16.0 g/dl) 12.7 (Ref Range: 12.0-16.0 g/dl) 12.4 (Ref Range: 12.0-16.0 g/dl) Hematocrit 37.3 (Ref Range: 37.0-47.0 %) 36.8 L (Ref Range: 37.0-47.0 %) 36.5 L (Ref Range: 37.0-47.0 %) Mean Corpuscular Volume 103.3 H (Ref Range: 80.0-98.0 fL) 100.5 H (Ref Range: 80.0-98.0 fL) 100.6 H (Ref Range: 80.0-98.0 fL) Mean Corpuscular Hemoglobin 35.5 H (Ref Range: 27.0-33.0 pg) 34.7 H (Ref Range: 27.0-33.0 pg) 34.2 H (Ref Range: 27.0-33.0 pg) Mean Corpuscular HGB Conc 34.3 (Ref Range: 31.0-35.0 g/dl) 34.5 (Ref Range: 31.0-35.0 g/dl) 34.0 (Ref Range: 31.0-35.0 g/dl) Red Cell Distribution Width 12.6 (Ref Range: 11.0-16.0 %) 12.6 (Ref Range: 11.0-16.0 %) 12.9 (Ref Range: 11.0-16.0 %) Platelet Count 202 (Ref Range: 160-400 X10*3/uL) 174 (Ref Range: 160-400 X10*3/uL) 189 (Ref Range: 160-400 X10*3/uL) Mean Platelet Volume 12.5 H (Ref Range: 9.4-12.3 fL) 11.9 (Ref Range: 9.4-12.3 fL) 12.5 H (Ref Range: 9.4-12.3 fL) Neutrophils Percent Auto 40.2 L (Ref Range: 45-73 %) 32.9 L (Ref Range: 45-73 %) 35.1 L (Ref Range: 45-73 %) Imm Gran Pct Auto 0.0 (Ref Range: 0.0-0.4 %) 0.3 (Ref Range: 0.0-0.4 %) 0.2 (Ref Range: 0.0-0.4 %) Lymphocytes Percent Auto 44.3 H (Ref Range: 20-40 %) 47.9 H (Ref Range: 20-40 %) 47.1 H (Ref Range: 20-40 %) Monocytes Percent Auto 10.9 (Ref Range: 2-11 %) 14.9 H (Ref Range: 2-11 %) 8.9 (Ref Range: 2-11 %) Eosinophils Percent Auto 3.7 (Ref Range: 0-4 %) 3.4 (Ref Range: 0-4 %) 8.0 H (Ref Range: 0-4 %) Basophils Percent Auto 0.9 (Ref Range: 0-2 %) 0.6 (Ref Range: 0-2 %) 0.7 (Ref Range: 0-2 %) NRBC Pct Auto 0.0 (Ref Range: 0.0-0.2 /100WBC) 0.0 (Ref Range: 0.0-0.2 /100WBC) 0.0 (Ref Range: 0.0-0.2 /100WBC) Neutrophils Absolute Auto 1.4 L (Ref Range: 2.0-8.3 x10*3/uL) 1.1 L (Ref Range: 2.0-8.3 x10*3/uL) 1.5 L (Ref Range: 2.0-8.3 x10*3/uL) Imm Gran Abs Auto 0.00 (Ref Range: 0.00-0.03 X10*3/uL) 0.01 (Ref Range: 0.00-0.03 X10*3/uL) 0.01 (Ref Range: 0.00-0.03 X10*3/uL) Lymphocytes Absolute Auto 1.5 (Ref Range: 1.2-4.9 X10*3/uL) 1.6 (Ref Range: 1.2-4.9 X10*3/uL) 2.1 (Ref Range: 1.2-4.9 X10*3/uL) Monocytes Absolute Auto 0.4 (Ref Range: 0.1-1.2 X10*3/uL) 0.5 (Ref Range: 0.1-1.2 X10*3/uL) 0.4 (Ref Range: 0.1-1.2 X10*3/uL) Eosinophils Absolute Auto 0.1 (Ref Range: 0.0-0.4 X10*3/uL) 0.1 (Ref Range: 0.0-0.4 X10*3/uL) 0.4 (Ref Range: 0.0-0.4 X10*3/uL) Basophils Absolute Auto 0.0 (Ref Range: 0.0-0.2 X10*3/uL) 0.0 (Ref Range: 0.0-0.2 X10*3/uL) 0.0 (Ref Range: 0.0-0.2 X10*3/uL) NRBC Abs Auto 0.000 (Ref Range: 0.0-0.012 X10*3/uL) 0.000 (Ref Range: 0.0-0.012 X10*3/uL) 0.000 (Ref Range: 0.0-0.012 X10*3/uL) ???Lab:Lipid Panel (Order Date - 03/08/2024) (Collection Date - 03/08/2024) ?ValueReference Range?Hcvxrnxdiawgo878<150 - mg/dL ?Dwszqxihmim319<200 - mg/dL?LDL Cholesterol Abqahpntui08<100 - mg/dL?HDL Kyjhhewppfv93>40 - mg/dL * Examination: G eneral Examination: GENERAL APPEARANCE: p leasant, well nourished, well developed, in no acute distress, calm and relaxed , overweight , woman. HEAD: a traumatic, normocephalic. EYES: e raysa, perrla, anicteric, conjugate. EARS: n ormal. NOSE: s eptum intact. ORAL CAVITY: n ormal, unremarkable. NECK/THYROID: n o jugular venous distention, no carotid bruit, thyroid normal. LYMPH NODES: n o enlarged lymph nodes,spleen normal. SKIN: n o suspicious lesions, anicteric. HEART: n o clicks, gallops, murmurs, or rubs, regular rhythm, S1, S2 normal, no s3, or vascular bruits. LUNGS: c lear to auscultation . BREASTS: no masses palpable bilaterally. ABDOMEN: b owel sounds normal, no ascites, no organomegaly, no mass , overweight. RECTAL EXAM: n ot examined. MUSCULOSKELETAL: e xtremities unremarkable, no clubbing, cyanosis or edema. PERIPHERAL PULSES: n ormal. NEUROLOGIC: a lert and oriented, cranial nerves 2-12 grossly intact, deep tendon reflexes 2+ symmetrical, motor strength normal upper and lower extremities, sensory exam intact. PSYCH: a lert, oriented. Assessment: * Assessment: 1. H ereditary hemochromatosis - E83.110 (Primary), Her ferritin level is 254. Observation will continue. The iron level is 227. 2 . O verweight - E66.3, Her body mass index is 27. She has lost 6 pounds since her last visit. Her nutritional status is excellent. 3 . E ssential hypertension - I10, Her blood pressure was elevated today. She was referred back to primary care for treatment. 4 . O steoarthritis of both knees, unspecified osteoarthritis type - M17.0, She has had bilateral knee replacements and is doing well. 5 . O ther depression - F32.89, She is very stated over the loss of her recently. She seems to be received but does not seem depressed. Plan: * Treatment: 2. O verweight L AB: PROFILE, RANDOM (COMPREHENSIVE METABOLIC) L AB: CBC WITH AUTO DIFF L AB: Ferritin 3. O thers Continue B6 Natural Tablet, 100 MG, 1 tablet, Orally, Once a day. * Procedure Codes: * Preventive Medicine: Counseling: C are goal follow-up plan: Counseling for abnormal BMI given Y es Above Normal BMI Follow-up D ietary management education, guidance, and counseling, Dietary needs education, Exercise promotion: strength training, Exercise promotion: stretching, Feeding regime, Giving encouragement to exercise, Lifestyle education regarding diet, Nutrition / feeding management, Nutrition therapy, Prescribed activity/exercise education, Prescribed diet education, Prescribed dietary intake, Special diet education, Weight monitoring , Intervention, Order not done: Medical or Other reason not done * Follow Up: 1 Year (Reason: OV) * Images: * Sign off status: Completed true * Provider: Ericka Kidd MD Date: 0 03/17/2024 Generated for Printi ng/Faxing/eTransmitting on: 0 05/05/2025 10:16 AM EDT History and Physical Notes * HPI (History of Present Illness) Category Sub-Category Detail Notes COVID-19 Screening Questions Have you had any new onset fever, chills, cough, congestion, sore throat, shortness of breath, muscle aches?: No Have you been exposed to the virus withi n the last 10 days?: No Have you travelled internationally in [facility] last 10 days?: No Have you been exposed to COVID-19 in the past?: No Examination Category Sub-Category Detail Notes General Examination GENERAL APPEARANCE: pleasant , well nourished, well developed, in no acute distress, calm and relaxed , overweight , woman HEAD: atraumatic, normocep halic EYES: eomi, perrla, anicte jordyn, conjugate EARS: normal NOSE: septum intact NECK/THYROID: no jugular venous di stention, no carotid bruit, thyroid normal HEART: no clicks, gallops, murmurs, or rubs, regular rhythm, S1, S2 normal, no s3, or vascular bruits LUNGS: clear to auscultatio n ABDOMEN: bowel sounds normal, no ascites, no organomegaly, no mass , overweight NEUROLOGIC: alert and oriented, cranial nerves 2-12 grossly intact, deep tendon reflexes 2+ symmetrical, motor strength normal upper and lower extremities, sensory exam intact SKIN: no suspicious lesion s, anicteric PERIPHERAL PULSES: normal BREASTS: no masses palpable b ilaterally MUSCULOSKELETAL: extremities unremark able, no clubbing, cyanosis or edema LYMPH NODES: no enlarged lymph no mariana,spleen normal RECTAL EXAM: not examined PSYCH: alert, oriented ORAL CAVITY: normal, unremarkable
--- OUTSIDE RECORDS SUMMARY | 2025-03-17 05:00 | XMS_ITS ---
Author Organization Nikhil Kidd III, MD Address [address] [place] [address] [place] [address] Care Team Providers Care Business Development Associate Name Role Phone Erlin Brown MD Primary Care Provider Nikhil Carranza Unavailable [phone] Allergies Allergen (clinical drug ingredient) Drug/Non Drug Allergy documented on EMR Reaction Allergy Type Onset Date Status celecoxib Celebrex Unknown Drug Allergy Active Results Component Value Reference Range Notes Ferritin Reviewed date:03/19/2025 03:13:01 PM Interpretation: Performing Lab:[facility], [address] [place] [phone] Notes/Report: Ferritin 333 10-250 ng/mL Lipid Panel Reviewed date:03/19/2025 03:13:01 PM Interpretation: Performing Lab:[facility], [address] [place] [phone] Notes/Report: Triglycerides 74 <150 mg/dL Desirable Triglyceride: [...] Problem Status W/U Status Risk Notes Problem 464818010 Mild anemia (D64.9) Active confirmed Her white [...] Date Provider Diagnosis Nikhil Kidd III, MD [address] [place] [address] [place] [address] 03/17/2025 Nikhil Kidd Hereditary hemochromatosis E83.110 ; [...] Reason: o v review labs Provider Name:Nikhil Kidd, 03/23/2026 09:00:00 AM, [address] [place] [address], [address], Progress Notes * MARTI HAYSJORIE ADOB:[birth year] (84 yo F)Acc No.[id number]:03/17/2025 Progress Notes Patient: JUSTIN CHUA Provider: Ericka Kidd MD :1940 A ge:84 Y S ex:Female Date:03/17/2025 Address:[address] [place] [address] Pcp:Erlin Brown MD Subjective: * Chief Complaints: * H emochromatosisHypertensionHearing lossGERDDepression * HPI: C OVID-19 Screening: S he returns for her annual visit for hemochromatosis and complications thereof. There has been no further cases of hemochromatosis and her family since her last visit. She has a new primary care physician in [facility] affiliated with the [facility], Dr. Giovana Pastrana at [facility]. Her reflux symptoms are well controlled. 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 * Medications: T akingB6 Natural 100 MG [...] and reconciled with the patient * Allergies: Devang roper[Allergies Verified] Objective: * Vitals: H t: 63, [...] X10*3/uL) 0.000 (Ref Range: 0.0-0.012 X10*3/uL) ???Lab:[facility]. Panel Fast (Order Date - 03/18/2025) (Collection Date & Time - 03/18/2025 07:15 AM)?ValueReference Range?Dfigrh037167- 145 - mmol/L?Bilirubin Total0.70.0-1.0 - mg/dL?Aspartate Amino Pwakhibxcda673-02 - U/L?Alanine Tattoffrtdbrdwrh666-68 - U/L?Total Protein6.66.5-8.0 - g/dL?Albumin Level4.13.5-5.0 - g/dL?Alkaline Bflkgesdrbe7373-791 - U/L?Potassium4.23.3-5.1 - mmol/L?Ybttduaf882 96-108 - mmol/L?Carbon Qojiusm1392-34 - mmol/L?Anion Dar80W85-40 - ?Blood Urea Hbdtklcg09-29 - mg/dL?Creatinine0.860.5-1.4 - mg/dL ?Estimated Glomerular Filt Rate> 60-?Glucose Zvpadyy8984-88 - mg/dL?Calcium9.08.4-10.2 - mg/dL * Examination: G [...] Kidd MD Date: 0 03/17/2025 Generated for Malenai ng/Gracielag/eTransmitting on: 0 05/05/2025 10:16 AM EDT History [...]
--- NOTE | 2025-05-05 09:21 | A.OFFVIS_ITS ---
Intake Visit Reasons: 1y/US Intake Note: Patient is present for 1Y/US Urology Medication:NONE Antibiotic Allergy:NONE Blood Thinner:NONE TODAY'S PVR:0ML'S Art Specialist Required: No Allergies bee pollen (BEE STINGS) Allergy (Severe, Verified 05/05/25 09:44) ANAPHYLAXIS celecoxib (From Celebrex) Allergy (Severe, Verified 05/05/25 09:44) INTERNAL BLEEDING Medication List - Last Reconciled 05/05/25 by ZACARIAS Cox- cefuroxime axetil 500 mg PO BID cholecalciferol (vitamin D3) 25 mcg PO DAILY fluticasone propionate 50 mcg/actuation 2 sprays intranasal DAILY PRN gabapentin 300 mg PO BEDTIME mirtazapine 30 mg PO BEDTIME multivitamin 1 tab PO DAILY nifedipine ER 30 mg PO DAILY omeprazole 40 mg PO DAILY pyridoxine (vitamin B6) 100 mg PO DAILY 90 days ropinirole 1 mg PO BEDTIME temazepam 15 mg PO BEDTIME PRN HPI Comments Details: Rosa Maria is a pleasant 84-year-old female patient of Dr. Esteban who is a retired nurse. She presents to the office today for a follow up of her nephrolithiasis. When asked she reports to be doing and feeling well. She currently denies any bothersome urinary issues or concerns. Recent renal imaging results reviewed with the patient today. 05/02 renal ultrasound bilateral kidneys with no hydronephrosis. Normal color Doppler. Right kidney with mid pole 6 cm benign cyst and 4 mm nonobstructing calculus. Left kidney with no nephrolithiasis and or renal masses. She reports to be drinking plenty of water daily and adding 1 oz of lemon juice to water daily. She also reports compliance with vitamin B6 as prescribed. She currently denies any bothersome urinary issues or concerns. She denies urinary urgency, urinary frequency, incontinence, nocturia, hematuria, dysuria, foul smelling urine, changes to urinary stream, flank pain, fever, and or chills. She is happy with her current voiding parameters. Unable to obtain urine for urinalysis as patient unable to void however PVR 0 mL. She discusses her upcoming trip to [place] this weekend for her prmtopv-rs-ook's birthday libertarian. She continues to live independently. She otherwise offers no other issues or concerns at this time. FORMERLY [facility], [facility] Medical History Hemochromatosis Renal cyst History of kidney stones Restless leg syndrome Acid reflux Surgical History History of knee replacement History of back surgery Social History Household Members: None Housing: House Do you presently have visiting nurse or other home services: No Alcohol intake: never Patient Tobacco Use Status: Never used Tobacco service: No Current occupational status: retired Current occupation: right handed Review of Systems Const All systems reviewed & are unremarkable except as noted in HPI and below Physical Exam Const General: cooperative, healthy appearing, comfortable, no acute distress, well developed, alert and awake Orientation/consciousness: patient oriented x3 Limitations: no limitations HEENT Other: Bilateral hearing aids present Head: Yes normal to inspection, Yes normocephalic and Yes atraumatic Ears: hearing grossly normal bilaterally Eyes General: appearance normal, both eyes and all related structures Neck Neck: Yes normal visual inspection and Yes trachea midline Chest Chest palpation & inspection: normal inspection of the chest Resp Effort & Inspection: normal respiratory effort and able to speak in complete sentences Cardio Rate: regular rate GI Inspection: Yes normal to inspection General: Yes no CVA tenderness Back/Spine/Pelvis Back: no CVA tenderness Skin General skin exam: no rashes or lesions noted Neuro General: patient oriented x3 Extrem General: Yes normal to inspection Psych Appearance: grossly normal and well kempt Mental Status: mental status grossly normal Speech and movement: Normal speech and movement present and Clear speech present Affect: normal affect Attitude: cooperative Thought process: Normal thought process present Thought content: Normal thought content present Insight: Fair insight present (Psych) Judgement: Fair judgement present (Psych) Office Procedures Post Void Residual Post Residual Void Post Void Residual (PVR): 0 [id number]-Mgya Void Residual by ultrasound Results Reviewed Results Reviewed: Date of Service: 04/26/25 Procedure(s): US renal BI US Renal Comparison: US/GA/SR - US KIDNEY BILATERAL - 04/26/24 11:16 EDT Findings: Right kidney normal size and echotexture, 9.7 cm length. 6 cm midpole benign cyst. 0.4 cm lower pole calculus. Left kidney normal size and echotexture, 8.3 cm length. No hydronephrosis of either kidney. Normal color Doppler IMPRESSION: Nonobstructing right renal calculus and benign renal cyst. Assessment & Plan Assessment & Plan (1) Nephrolithiasis: Code(s): N20.0 - Calculus of kidney Category: Medical (2) Renal cyst: Code(s): N28.1 - Cyst of kidney, acquired Category: Medical Plan In office urinalysis results reviewed with the patient today; as noted above. PVR 0 mLs Recent renal imaging reviewed with the patient; stable; will continue with surv eiance imaging Patient denies any urological issues or concerns at this time. Continue vitamin B6 daily. Discussed, encouraged, and instructed to continue drinking adequate amount of daily fluid. Continue adding 1 oz of lemon juice to water daily Renal ultrasound in one year Follow-up in 1 year with imaging to be completed prior; or sooner with any issues, concerns, and or questions. Orders: Orders AMB Urinalysis Automated Today Z13.9 - Encounter for screening, unspecified US renal BI 1 Year N20.0 - Calculus of kidney Patient Instructions: The patient had an opportunity to ask questions regarding the treatment plan. All questions were answered. Physical exam, labs, and imaging were discussed and reviewed in detail. As well as risks, benefits, and discussion of treatment choices. No major barriers to understanding were identified. The patient expressed understanding and agreement with the above treatment plan. The patient was made aware they should contact our office by phone for worsening of their current condition, the appearance of new symptoms, or with any questions or concerns. Compliance is encouraged with any medications and follow up testing that is ordered. It is a privilege to be allowed the opportunity to participate in? your urological care.? Again, if you have any questions or concerns If you have any questions or concerns please do not hesitate to contact me. The office is [phone]. This note is constructed using voice recognition software. While every effort has been made to ensure accuracy manager client service errors may have been included. Yours sincerely, SANDRA Cox Coding Level of Care Code Est Pt Level 3 (61485) Complex EM visit Add On G2211 Diagnoses Nephrolithiasis N20.0 Renal cyst N28.1 CPT Codes Post Residual Void - PVR CPT Code: 07842-Sqvs Void Residual by ultrasound ([id number])
--- OUTSIDE RECORDS SUMMARY | 2025-05-05 10:16 | XMS_ITS | Patient Health Record ---
Author Organization Nikhil Kidd III, MD Address [address] [place] [address] Care Team Providers Care Market Master Name Role Phone Erlin Brown MD Primary Care Provider Nikhil Carranza [facility] [phone] Allergies Allergen (clinical drug ingredient) Drug/Non Drug Allergy documented on EMR Reaction Allergy Type Onset Date Status celecoxib Celebrex Unknown Drug Allergy Active Results Component Value Reference Range Notes Ferritin Reviewed date:03/19/2025 03:13:01 PM Interpretation: Performing Lab:[facility], [address] [place] [phone] Notes/Report: Ferritin 333 10-250 ng/mL Lipid Panel Reviewed date:03/19/2025 03:13:01 PM Interpretation: Performing Lab:[facility], [address] [place] [phone] Notes/Report: Triglycerides 74 <150 mg/dL Desirable Triglyceride: [...] low results in patients with liver disease. Complete Blood Count Auto Di ff Reviewed date:03/19/2025 03:13:00 PM Interpretation: Performing Lab:[facility], [address] [place] [phone] Notes/Report: White Blood Count 3.4 4.8-10.8 X10*3/uL Red Blood Count 3.65 4.20-5.50 X10*6/uL Hemoglobin 12.7 12.0-16.0 g/dl Hematocrit 36.4 37.0-47.0 % Mean Corpuscular Volume 99.7 80.0-98.0 fL Mean Corpuscular Hemoglobin 34.8 27.0-33.0 pg Mean Corpuscular HGB Conc 34.9 31.0-35.0 g/dl Red Cell Distribution Width 12.7 11.0-16.0 % Platelet Count 210 160-400 X10*3/uL Mean Platelet Volume 11.4 9.4-12.3 fL Neutrophils Percent Auto 43.9 45-73 % Imm Gran Pct Auto 0.0 0.0-0.4 % Lymphocytes Percent Auto 45.1 20-40 % Monocytes Percent Auto 8.1 2-11 % Eosinophils Percent Auto 2.0 0-4 % Basophils Percent Auto 0.9 0-2 % NRBC Pct Auto 0.0 0.0-0.2 /100WBC Neutrophils Absolute Auto 1.5 2.0-8.3 x10*3/u L Imm Gran Abs Auto 0.00 0.00-0.03 X10*3/uL Lymphocytes Absolute Auto 1.6 1.2-4.9 X10*3/u L Monocytes Absolute Auto 0.3 0.1-1.2 X10*3/uL Eosinophils Absolute Auto 0.1 0.0-0.4 X10*3/u L Basophils Absolute Auto 0.0 0.0-0.2 X10*3/uL NRBC Abs Auto 0.000 0.0-0.012 X10*3/uL Comprehensive [place]. Panel Fa st Reviewed date:03/19/2025 03:13:01 PM Interpretation: Performing Lab:[facility], [address] [place] [phone] Notes/Report: Sodium 136 135-145 mmol/L Potassium 4.2 3.3-5.1 mmol/L Chloride 103 96-108 mmol/L Carbon Dioxide 27 22-29 mmol/L Anion Gap 10 12-20 Blood Urea Nitrogen 9 9-16 mg/dL Creatinine 0.86 0.5-1.4 mg/dL Estimated Glomerular Filt Rate > 60 Chronic Kidney Disease: Estimated GFR < 60 mL/min/1.73m2 Severe Kidney Disease: Estimated GFR < 15 mL/min/1.73m2 Glucose Fasting 91 60-99 mg/dL Calcium 9.0 8.4-10.2 mg/dL Bilirubin Total 0.7 0.0-1.0 mg/dL Aspartate Amino Transferase 22 5-31 U/L Alanine Aminotransferase 15 0-31 U/L Total Protein 6.6 6.5-8.0 g/dL Albumin Level 4.1 3.5-5.0 g/dL Alkaline Phosphatase 53 39-117 U/L Alpha Fetoprotein Reviewed date:03/22/2025 08:21:58 PM Interpretation: Performing Lab:[facility], [address] [place] [phone] Notes/Report: Alpha Fetoprotein 2.0 Reference Range: <6.1 The use of AFP as a tumor marker in females is not recommended. This test was performed using the Clarence Marty chemiluminescent method. Values obtained from different assay methods cannot be used interchangeably. AFP levels, regardless of value, should not be interpreted as absolute evidence of the presence or absence of disease. THIS TEST WAS PERFORMED AT: [facility] [address] [place] [phone] BALJIT SCOTT MD US renal BI (Not yet reviewe d by provider) Interpretation: Performing Lab: Notes/Report: [facility] [place] [address] Ultrasound Report Signed Patient: Justin Hays MR#: [id number] : 1940 Acct:[id number] Age/Sex: 84 / F ADM Date: 04/26/25 Loc: HO.HMGCX Attending Dr: Corinne Hurtado [facility] Ordering Physician: Corinne Hurtado Date of Service: 04/26/25 Procedure(s): US renal BI Accession Number(s): [id number] cc: Nikhil Kidd MD; Corinne Hurtado CLINICAL HISTORY: N20.0 - Calculus of kidney US Renal Comparison: US/RI/SR - US KIDNEY BILATERAL - 04/26/24 11:16 EDT Findings: Right kidney normal size and echotexture, 9.7 cm length. 6 cm midpole benign cyst. 0.4 cm lower pole calculus. Left kidney normal size and echotexture, 8.3 cm length. No hydronephrosis of either kidney. Normal color Doppler IMPRESSION: Nonobstructing right renal calculus and benign renal cyst. This document has been electronically signed by: Marty Reyes MD on 04/27/2025 19:48:18 Dictated By: Marty Reyes MD Signed By: <Electronically signed by Marty Reyes MD in OV> 04/27/251947 DD/ 47 TD/TT: 04/27/251947 Automated Process Operator: [facility] [address] [place] [address] [place] [address] Ultrasound Report Signed Patient: Ko Hasy MR#: [id number] : 1940 Acct:[id number] Age/Sex: 84 / F ADM Date: 04/26/25 Loc: [facility] Attending Dr: Corinne FLORES Ordering Physician: Corinne Hurtado Date of Service: 04/26/25 Procedure(s): US rah Wolff Accession Number(s): [id number] cc: Nikhil Kidd MD; Corinne Hurtado CLINICAL HISTORY: N2 0.0 - Calculus of kidney US Renal Comparison: US/RI/SR - US KIDNEY BILATERAL - 04/26/24 11:16 EDT Findings: Right kidney normal size and echotexture, 9.7 cm length. 6 cm midpole benign cyst. 0.4 cm lower pole calculus. Left kidney normal s ize and echotexture, 8.3 cm length. No hydronephrosis of either kidney. Normal color Doppler IMPRESSION: Nonobstructing right renal calculus and benign renal cyst. This document has be en electronically signed by: Marty Reyes MD on 04/27/2025 19:48:18 Dictated By: Marty Reyes MD Signed By: <Electronically signed by Marty Reyes MD in OV> 04/27/251947 DD/ 47 TD/TT: 04/27/251947 Automated Process Operator: Reason For Referral No Information Medications Medication [...] Problem Status W/U Status Risk Notes Problem 958760084 Overweight (E66.3) Active confirmed Her body mass index is 26. We discussed diet and nutrition. We made a plan to stabilize her weight at this level and avoid increases. 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 An alpha-fetoprot ein is not available. She is asymptomatic. Observation was continued. Problem 00012473 Essential hypertension (I10) Active confirmed Her blood pressure is stable at 140/71. No changes in her regimen were made. Problem 877852272 Gastroesophageal reflux disease without esophagitis (K21.9) Active confirmed Her reflux is well-controlle d with [id number]-xsd-[id number] er medications and no change in regimen is necessary. Problem 073381741 Osteoarthritis o f both knees, unspecified osteoarthritis type (M17.0) Active confirmed She has had bilateral knee replacements and is doing well. Problem 53215771 Other depression (F32.89) Active confirmed She is very stated over the loss of her recently. She seems to be received but does not seem depressed. 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 No additional treatment is necessary. Problem 02798094 Gastric ulcer without hemorrhage or perforation, unspecified chronicity (K25.9) Active confirmed On antral ulcer was found at endoscopy in 2002 but has not relapsed. Problem 791319293 Mild anemia (D64.9) Active confirmed Her white blood cell count and hematocrit are slightly below normal but no therapy is indicated. Observation will be continued. Vital Signs Heart Rate 71 /min 03/17/2025 Temperature 98.5 degrees Fahrenheit 03/17/2025 Blood pressure diastolic 71 mm Hg 03/17/2025 Height 63 in 03/17/2025 Blood pressure systolic 140 mm Hg 03/17/2025 Weight 152 lbs 03/17/2025 BMI 26.92 kg/m2 03/17/2025 Encounters Encounter Location Date Provider Diagnosis Nikhil Kidd III, MD [address] [place] [address] [place] [address] 03/17/2025 Nikhil Kidd Hereditary hemochromatosis E83.110 ; Overweight E66.3 ; Essential hypertension I10 and Mild anemia D64.9 Assessments Encounter Date Diagnosis (ICD Code) Assessment Notes Treat ment Notes Treatment Clinical Notes 03/17/2025 Overweight (ICD-10 - E66.3) Her body mass index is 26. We discussed diet and nutrition. We made a plan to stabilize her weight at this level and avoid increases. 03/17/2025 Hereditary hemochromatosis (ICD-10 - E83.110) Her ferritin level has slightly increased to 333. An alpha-fetoprotein is not available. She is asymptomatic. Observation was continued. 03/17/2025 Essential hypertensi on (ICD-10 - I10) Her blood pressure is stable at 140/71. No changes in her regimen were made. 03/17/2025 Mild anemia (ICD-10 - D64.9) Her white blood cell count and hematocrit are slightly below normal but no therapy is indicated. Observation will be continued. Plan Of Treatment Pending Test Test Name Order Date PROFILE, FASTING (COMPREHENSIVE METABOLI C) 03/17/2025 PROFILE, RANDOM (COMPREHENSIVE METABOLIC ) 10/15/2022 PROFILE, [...] 09/14/2020 IRON + IBC (FE) 03/14/2023 FERRITIN 09/14/2020 FERRITIN 10/15/2022 FERRITIN 05/05/2018 FERRITIN 02/24/2019 FERRITIN 01/02/2018 FERRITIN 02/28/2020 FERRITIN 08/26/2018 FERRITIN 08/27/2019 CBC w DIFF 08/26/2018 CBC w DIFF 08/27/2019 CBC w DIFF 03/17/2025 CBC w DIFF 09/14/2020 CBC w DIFF 10/15/2022 CBC w DIFF 05/05/2018 CBC w DIFF 02/24/2019 CBC w DIFF 01/02/2018 CBC w DIFF 02/28/2020 CBC w DIFF 10/10/2021 CBC w DIFF 03/14/2023 RETICULOCYTE COUNT,CORRECTED 01/02/2018 ALPHA-FETOPROTEIN,TUMOR MARKER CT ABD WITH CONTRAST 10/01/2021 CBC WITH AUTO DIFF 03/17/2024 Ferritin 03/14/2023 Ferritin 03/17/2024 Lipid Panel 03/14/2023 US renal BI 04/27/2025 Next Appt Details Provider Name:Nikhil Kidd, 03/23/2026 09:00:00 AM, [address] [place] [address] [address] [facility] [place], [place], [address], Insurance Providers Payer Name Payer Address Payer Phone Subscriber Number Group Number Insured Name Patient Relationship to Insured Coverage Start Date Coverage End Date [employer] Medicare Advantage [address] [address] [place] [address] [id number] JUSTIN HAYS Self - patient is the insured MEDICARE [facility] [address] [place] [phone] [id number] JUSTIN HAYS Self - patient is the insured Medical (General) History Medical History History ICD Code Hypertension, unspecified type I10 osteoarthritis both knees bilateral knee replacement chronic depression hysterectomy and oophorectomy cholesteatoma, right ear gastric antral ulcer 2002 GERD hemochromatosis, 2000, homozygous for C2 82Y Surgical History Surgery Date(Month/Year) Tendon repair, Right hand 02/2022 left myringotomy left knee arthroscopy 1984 upper endoscopy, antral ulcer 2002 ISIDRA/BSO 1992 back surgery 2008 right knee replacement 2010 left knee replacement 2001
--- OUTSIDE RECORDS SUMMARY | 2025-05-05 10:16 | XMS_ITS | Patient Health Record ---
Author Organization [facility] Address [address] [place] [address] Care Team Providers Care Utility Appraiser Name Role Phone Kevin (RETIRED) Erlin ALCANTARA Primary Care Provide r Unavailable Rashawn Weinstein Jr Unavailable [phone] Reason For Referral No Information Plan Of Treatment No Information Insurance Providers Payer Name Payer Address Payer Phone Subscriber Number Group Number Insured Name Patient Relationship to Insured Coverage Start Date Coverage End Date [facility] [address] [address] [place] [address] [id number] JUSTIN HAYS Self - patient is the insured
--- OUTSIDE RECORDS SUMMARY | 2025-05-05 10:17 | XMS_ITS | Patient Health Record ---
Author Organization [facility] Address [address] [place] [address] Care Team Providers Care Infrastructure Design Engineer Name Role Phone Betsey Pastrana Primary Care Provider Unavail able Di Casillas Unavailable [phone] Allergies Allergen (clinical drug ingredient) Drug/Non Drug [...] 03/15/2025 Encounters Encounter Location Date Provider Diagnosis [address] [address] 05/19/2024 [facility] Tinea unguium B35.1 ; Metatarsalgia, left foot M77.42 ; Pain in left toe(s) M79.675 ; Pain in right toe(s) M79.674 ; Pain in left foot M79.672 ; Pain in left ankle and joints of left foot M25.572 and Bursitis of intermetatarsal bursa of left foot M77.[address] [address] 08/03/2024 [facility] Pain in right toe(s) M79.674 ; Onychomycosis B35.1 and Pain in left toe(s) M79.[address] [address] 10/19/2024 [facility] Pain in right toe(s) M79.674 ; Onychomycosis B35.1 and Pain in left toe(s) M79.[address] [address] 01/05/2025 Di [facility]ica Pain in right toe(s) M79.674 ; Onychomycosis B35.1 and Pain in left toe(s) M79.675 [facility] [place] [address] [place] [address] 03/15/2025 Di Casillas Pain in right toe(s) [...] X ray : Foot, left 3V 03/25/2023 [id number]-[id number] Plate 04/01/2016 62172- Debride <25 sq cm 04/17/2016 96097-TSPSPEB SKIN/TISSUE 10/02/2022 74302, E5118-[facility]RSM/INJECT, JOINT/BURSA 1 09/25/2020 Next Appt Details Provider Name:Di gray, 06/08/2025 01:00:00 PM, [address] [place] [address], [phone], Insurance Providers Payer Name Payer Address Payer Phone Subscriber Number Group Number Insured Name Patient Relationship to Insured Coverage Start Date Coverage End Date [employer] Medicare Complete [address] [address] [place] [address] [id number] Rosa Maria Colunga Self - patient is [...]
--- OUTSIDE RECORDS SUMMARY | 2025-05-05 10:17 | XMS_ITS | Clinical Summary ---
Author Organization [facility] Address [address] [place] [address] Phone Care Team Providers Care Director [employer] Name Role Phone Betsey Pastrana MD, MPH [...] MOUTH EVERY NIGHT AT BEDTIME 30 tablet 04/27/20 25 Active temazepam (RESTORIL) 15 mg capsule Take 15 mg by mouth nightly at bedtime as needed for anxiety. 025 Discontinued(No longer taking) gabapentin (NEURONTIN) 300 MG capsule TAKE 1 CAPSULE(300 MG) BY MOUTH EVERY NIGHT AT BEDTIME 30 capsule 03/29/20 25 025 Discontinued(No longer taking) mirtazapine (REMERON) 30 MG tablet TAKE 1 TABLET(30 MG) BY MOUTH EVERY NIGHT AT BEDTIME 30 tablet 03/29/20 25 025 Discontinued Active Problems Problem Noted Date Diagnosed Date Mild anemia 04/07/2025 Essential hypertension 04/07/2025 Hereditary hemochromatosis 04/07/2025 Restless leg syndrome 04/07/2025 Encounters Date Type Department Care Team Description 04/27/[address] [place] [address] Ashanti Camp MD Medication Refill 04/07/2025 8:00 AM EDT Office Visit [address] [place] [address] Ashanti Camp MD Essential hypertension (Primary Dx); Restless leg syndrome; Hereditary hemochromatosis 03/29/[address] [place] [address] Ashanti Camp MD Medication Refill (GABAPENTIN 300MG CAPSULES/Remelon) 03/03/[address] [place] [address] Betsey Pastrana MD, MPH Medication Refill 02/04/2025 10:20 AM EDT Office Visit [address] [place] [address] Betsey Pastrana MD, MPH Restless leg syndrome (Primary Dx); Hereditary hemochromatosis; Gastroesophageal reflux disease without esophagitis; Essential hypertension; Diminished hearing, bilateral; Osteoporosis, unspecified osteoporosis type, unspecified pathological fracture presence from Last 3 Months Immunizations Immunization Administration Dates Next Due Influenza High-Dose Quadriva lent Preservative Free IM 06/17/2022,05/08/2021,04/25/2020 Influenza High-Dose Trivalen t Preservative Free IM 06/07/2024,05/18/2018,05/27/2017 Influenza Trivalent Adjuvant ed Preservative free IM 05/05/2019 Pneumococcal conjugate PCV13 05/27/2017 RSV Vaccine (monovalent, adjuvanted) 06/07/2024 Tdap 05/26/2020,11/09/2018 Family History Medical History Relation Comments Heart attack Father massive ME when driving his car Liver cancer Sister [...] topic Medical Devices Not on file Insurance [facility] MEDICARE REPLACEMENT MEDICARE PART A & B [facility] MEDICARE REPLACEMENT MEDICARE PART A & B MEDICARE REPLACEMENT MEDICARE PART A & B [facility] MEDICARE REPLACEMENT MEDICARE PART A & B [facility] MEDICARE REPLACEMENT MEDICARE PART A & B [facility] MEDICARE REPLACEMENT MEDICARE PART A & B Care Teams Director [employer] Relationship Specialty Start Date End Date Betsey Pastrana MD, MPH [address] [place], [place] [id number] [email or web address] PCP - General Family Medicine 02/04/25 Additional Source Comments The information contained in this document represents components of the legal health record. It is not the complete legal health record.[facility]
== END 2025-05-05 09:59 | disposition home or self-care (01) ==
LOC: HO.HUSH 09:15
PROVIDERS: PCP Internal Medicine; Visit Provider Nurse Practitioner Family
DX: N20.0 Calculus of kidney (principal); N28.1 Cyst of kidney, acquired
CPT/HCPCS: 99213; G2211

== ENCOUNTER → 2025-05-05 09:15 | Outpatient (BNVA) | payer MEDICARE, SELFPAY | PROVIDERS: PCP Internal Medicine; Visit Provider Nurse Practitioner Family | DX: N20.0 Calculus of kidney (principal); N28.1 Cyst of kidney, acquired | CPT/HCPCS: 51798; 99212 ==

== ENCOUNTER 2025-05-17 07:33 | Outpatient (REF) | payer MEDICARE, SELFPAY ==
--- OUTSIDE RECORDS SUMMARY | 2024-03-15 12:45 | XMS_ITS ---
Author Organization Nikhil Kidd III, MD Address [address] [place] [address] Care Team Providers Care Education Sales Consultant Name Role Phone Erlin Brown MD Primary Care Provider Unavaila Nikhil Muñoz Unavailable [phone] REASON FOR VISIT Follow Up Encounters Encounter Location Date Provider Diagnosis Nikhil Kidd III, MD [address] [place] [address] [place] [address] 03/15/2024 Nikhil Kidd Plan Of Treatment Next Appt Details Provider Name:Nikhil Kidd, 03/23/2026 09:00:00 AM, [address] [place] [address] [place], [address], Progress Notes * MARTI HAYSJORIE ADOB:[birth year] (84 yo F)Acc No.[id number]:03/15/2024 Progress Notes Patient: JUSTIN CHUA Provider: Ericka Kidd MD :1940 A ge:83 Y S ex:Female Date:03/15/2024 Address:[address] [place], [place] [id number] Pcp:Erlin Brown MD Subjective: * Chief Complaints: [...] 03/15/2024 Generated for Jensen sparks/Lilliana/Irina on: 0 05/17/2025 07:38 AM IVETT
--- OUTSIDE RECORDS SUMMARY | 2024-03-17 05:00 | XMS_ITS ---
Author Organization Nikhil Kidd III, MD Address [address] [place] [address] Care Team Providers Care Community Service Technician Name Role Phone Erlin Brown MD Primary Care Provider Nikhil Carranza Unavailable [phone] Allergies Allergen (clinical drug ingredient) Drug/Non Drug [...] Date Provider Diagnosis Nikhil Kidd III, MD [address] [place] [address] [place] [address] 03/17/2024 Nikhil Kidd Hereditary hemochromatosis E83.110 ; [...] V Provider Name:Nikhil Kidd, 03/23/2026 09:00:00 AM, [address] [place] [address] , [place] [address], [place], [address], Progress Notes * JUSTIN HAYS ADOB:[birth year] (83 yo F)Acc No.[id number]:03/17/2024 Progress Notes Patient: Dami JUICEMARTIJUSTIN Cornelio Provider: Ericka Kidd MD :1940 A ge:83 Y S ex:Female Date:03/17/2024 Address:[address] [place] [address], [place] [id number] Pcp:Erlin Brown MD Subjective: * Chief Complaints: [...] 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 * Medications: T akingB6 Natural 100 [...] - 03/08/2024) (Collection Date - 03/08/2024) ?ValueReference Range?Ztbpxqakbhaow197<150 - mg/dL ?Skfggerniec536<200 - mg/dL?LDL Cholesterol Wlghwzofhf57<100 - mg/dL?HDL Svoxagmkoup45>40 - mg/dL * Examination: G eneral Examination: [...] MD Date: 0 03/17/2024 Generated for Printi ng/Faearleneg/eTransmitting on: 0 05/17/2025 07:37 AM EDT History and Physical Notes * HPI (History of Present Illness) Category Sub-Category Detail Notes COVID-19 Screening Questions Have you had any new onset fever, chills, cough, congestion, sore throat, shortness of breath, muscle aches?: No Have you been exposed to the virus withi n the last 10 days?: No Have you travelled internationally in [facility] last 10 days?: No Have you [...]
--- OUTSIDE RECORDS SUMMARY | 2025-03-17 05:00 | XMS_ITS ---
Author Organization Nikhil Kidd III, MD Address [address] [place] [address] Care Team Providers Care Emergency Medical Technician Basic Name Role Phone Erlin Brown MD Primary Care Provider Nikhil Carranza Unavailable [phone] Allergies Allergen (clinical drug ingredient) Drug/Non Drug Allergy documented on EMR Reaction Allergy Type Onset Date Status celecoxib Celebrex Unknown Drug Allergy Active Results Component Value Reference Range Notes Ferritin Reviewed date:03/19/2025 03:13:01 PM Interpretation: Performing Lab:[facility], [address] [place] [phone] Notes/Report: Ferritin 333 10-250 ng/mL Lipid Panel Reviewed date:03/19/2025 03:13:01 PM Interpretation: Performing Lab:[facility], [address] [place] [phone] Notes/Report: Triglycerides 74 <150 mg/dL Desirable Triglyceride: [...] Problem Status W/U Status Risk Notes Problem [id number] Mild anemia (D64.9) Active confirmed Her white [...] Date Provider Diagnosis Nikhil Kidd III, MD [address] [place] [address] [place] [address] 03/17/2025 Nikhil Kidd Hereditary hemochromatosis E83.110 ; [...] labs Provider Name:Nikhil Kidd, 03/23/2026 09:00:00 AM, [address] [place] [address], [address], Progress Notes * MARTI HAYSJORIE ADOB:[birth year] (84 yo F)Acc No.[id number]:03/17/2025 Progress Notes Patient: JUSTIN CHUA Provider: Ericka Kidd MD :1940 A ge:84 Y S ex:Female Date:03/17/2025 Address:[address] [place] [address] Pcp:Erlin Brown MD Subjective: * Chief Complaints: * H emochromatosisHypertensionHearing lossGERDDepression * HPI: C OVID-19 Screening: S he returns for her annual visit for hemochromatosis and complications thereof. There has been no further cases of hemochromatosis and her family since her last visit. She has a new primary care physician in [facility] affiliated with the [facility], Dr. Giovana Pastrana at [facility]. Her reflux symptoms are well controlled. 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 * Medications: T akingB6 Natural 100 MG [...] X10*3/uL) 0.000 (Ref Range: 0.0-0.012 X10*3/uL) ???Lab:[facility] [place]. Panel Fast (Order Date - 03/18/2025) (Collection Date & Time - 03/18/2025 07:15 AM)?ValueReference Range?Uefoqg581114- 145 - mmol/L?Bilirubin Total0.70.0-1.0 - mg/dL?Aspartate Amino Hbrjbhdiwrz490-03 - U/L?Alanine Bwcmubitjelvirqn302-12 - U/L?Total Protein6.66.5-8.0 - g/dL?Albumin Level4.13.5-5.0 - g/dL?Alkaline Xiybaeykemb9791-729 - U/L?Potassium4.23.3-5.1 - mmol/L?Rskajqit907 96-108 - mmol/L?Carbon Boakwsz5167-71 - mmol/L?Anion Kye29Z63-22 - ?Blood Urea Sywoswce19-72 - mg/dL?Creatinine0.860.5-1.4 - mg/dL ?Estimated Glomerular Filt Rate> 60-?Glucose Stwujqt3554-81 - mg/dL?Calcium9.08.4-10.2 - mg/dL * Examination: G [...] 03/17/2025 Generated for Malenai ng/Gracielag/eTransmitting on: 0 05/17/2025 07:37 AM EDT History [...]
--- OUTSIDE RECORDS SUMMARY | 2025-05-17 07:37 | XMS_ITS | Patient Health Record ---
Author Organization Nikhil Kidd III, MD Address [address] [place] [address] Care Team Providers Care Business Risk Consultant Name Role Phone Elrin Brown MD Primary Care Provider Nikhil Carranza [facility] [phone] Allergies Allergen (clinical drug ingredient) Drug/Non Drug Allergy documented on EMR Reaction Allergy Type Onset Date Status celecoxib Celebrex Unknown Drug Allergy Active Results Component Value Reference Range Notes Ferritin Reviewed date:03/19/2025 03:13:01 PM Interpretation: Performing Lab:[facility], [address] [place] [phone] Notes/Report: Ferritin 333 10-250 ng/mL Lipid Panel Reviewed date:03/19/2025 03:13:01 PM Interpretation: Performing Lab:[facility], [address] [place] [phone] Notes/Report: Triglycerides 74 <150 mg/dL Desirable Triglyceride: [...] ff Reviewed date:03/19/2025 03:13:00 PM Interpretation: Performing Lab:[facility], [address] [place] [address] Notes/Report: White Blood Count 3.4 4.8-10.8 X10*3/uL [...] NRBC Abs Auto 0.000 0.0-0.012 X10*3/uL Comprehensive [place]. Panel Fa st Reviewed date:03/19/2025 03:13:01 PM Interpretation: Performing Lab:[facility], [address] [place] [phone] Notes/Report: Sodium 136 135-145 mmol/L Potassium 4.2 [...] Fetoprotein Reviewed date:03/22/2025 08:21:58 PM Interpretation: Performing Lab:[facility], [address] [place] [phone] Notes/Report: Alpha Fetoprotein 2.0 Reference Range: <6.1 The use of AFP as a tumor marker in females is not recommended. This test was performed using the Clarence Schaller chemiluminescent method. Values obtained from different assay methods cannot be used interchangeably. AFP levels, regardless of value, should not be interpreted as absolute evidence of the presence or absence of disease. THIS TEST WAS PERFORMED AT: [employer] [address] [place] [phone] BALJIT SCOTT MD US renal BI (Not yet reviewe d by provider) Interpretation: Performing Lab: Notes/Report: [facility] Primary Care [facility] [place] [address] Ultrasound Report Signed Patient: Justin Hays MR#: [id number] 222 : 1940 Acct:[id number] Age/Sex: 84 / F ADM Date: 04/26/25 Loc: HO.HMGCX Attending Dr[facility] Ordering Physician: Corinne Hurtado Date of Service: 04/26/25 Procedure(s): US renal BI Accession Number(s): [id number] cc: Nikhil Kidd MD; Corinne Hurtado CLINICAL HISTORY: N20.0 - Calculus of kidney US Renal Comparison: US/CA/SR - US KIDNEY BILATERAL - 04/26/24 11:16 [...] in OV> 04/27/251947 DD/ 47 TD/TT: 04/27/251947 Vendor Analyst: [facility] Primary Care [address] [place] [address] [place] [address] Ultrasound Report Signed Patient: Ko Hays MR#: [id number] 222 : 1940 Acct:[id number] Age/Sex: 84 / F ADM Date: 04/26/25 Loc: [facility] Attending Dr: Corinne FLORES Ordering Physician: Corinne Hurtado Date of Service: 04/26/25 Procedure(s): US rah Wolff Accession Number(s): [id number] cc: Nikhil Kidd MD; Corinne Hurtado CLINICAL HISTORY: N2 0.0 - Calculus of kidney US Renal Comparison: US/CA/SR - US KIDNEY BILATERAL - 04/26/24 11:16 [...] in OV> 04/27/251947 DD/ 47 TD/TT: 04/27/251947 Vendor Analyst: Reason For Referral No Information Medications Medication [...] Problem Status W/U Status Risk Notes Problem 779361095 Overweight (E66.3) Active confirmed Her body mass index is 26. We discussed diet and nutrition. We made a plan to stabilize her weight at this level and avoid increases. Problem 59390006 Hereditary hemochromatosis (E83.110) Active confirmed Her ferritin level has slightly increased to 333. An alpha-fetoprot ein is not available. She is asymptomatic. Observation was continued. Problem 13145931 Essential hypertension (I10) Active confirmed Her blood pressure is stable at 140/71. No changes in her regimen were made. Problem 602466085 Gastroesophageal reflux disease without esophagitis (K21.9) Active confirmed Her reflux is well-controlle d with cloo-zli-gqool er medications and no change in regimen is necessary. Problem 535106423 Osteoarthritis o f both knees, unspecified osteoarthritis type (M17.0) Active confirmed She has had bilateral knee replacements and is doing well. Problem 99523477 Other depression (F32.89) Active confirmed She is very stated over the loss of her recently. She seems to be received but does not seem depressed. 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 No additional treatment is necessary. Problem 61896573 Gastric ulcer without hemorrhage or perforation, unspecified chronicity (K25.9) Active confirmed On antral ulcer was found at endoscopy in 2002 but has not relapsed. Problem 635064171 Mild anemia (D64.9) Active confirmed Her white [...] Date Provider Diagnosis Nikhil Kidd III, MD [address] [place] [address] [place] [address] 03/17/2025 Nikhil Kidd Hereditary hemochromatosis E83.110 ; [...] Details Provider Name:Nikhil Kidd, 03/23/2026 09:00:00 AM, [address] [place] [address] DR [facility] Elaine, [place], [address], Insurance Providers Payer Name Payer Address Payer Phone Subscriber Number Group Number Insured Name Patient Relationship to Insured Coverage Start Date Coverage End Date [employer] Medicare Advantage [address] [address] [place] [address] [phone] [id number] JUSTIN HAYS Self - patient is the insured MEDICARE [facility] [address] RICCIJORDAN BROWN [phone] [id number] JUSTIN HAYS Self - patient is the [...]
--- OUTSIDE RECORDS SUMMARY | 2025-05-17 07:37 | XMS_ITS | Patient Health Record ---
Author Organization [facility] Address [address] [place] [address] Care Team Providers Care Engineering Inspector Name Role Phone Kevin (RETIRED) Erlin ALCANTARA Primary Care Provide r Unavailable Rashawn Weinstein Jr Unavailable [phone] Reason For Referral No Information Plan Of Treatment No Information Insurance Providers Payer Name Payer Address Payer Phone Subscriber Number Group Number Insured Name Patient Relationship to Insured Coverage Start Date Coverage End Date [facility] [address] [address] [place] [address] [id number] JUSTIN HAYS Self - patient is the insured
--- OUTSIDE RECORDS SUMMARY | 2025-05-17 07:39 | XMS_ITS | Patient Health Record ---
Author Organization [facility] Address [address] [place] [address] Care Team Providers Care Ecologist Name Role Phone Betsey Pastrana Primary Care Provider Unavail able Di Casillas Unavailable [phone] Allergies Allergen (clinical drug ingredient) Drug/Non Drug [...] 03/15/2025 Encounters Encounter Location Date Provider Diagnosis [address] [address] 05/19/2024 [facility] Tinea unguium B35.1 ; Metatarsalgia, left foot M77.42 ; Pain in left toe(s) M79.675 ; Pain in right toe(s) M79.674 ; Pain in left foot M79.672 ; Pain in left ankle and joints of left foot M25.572 and Bursitis of intermetatarsal bursa of left foot M77.[address] [address] 08/03/2024 [facility] Pain in right toe(s) M79.674 ; Onychomycosis B35.1 and Pain in left toe(s) M79.[address] [address] 10/19/2024 [facility] Pain in right toe(s) M79.674 ; Onychomycosis B35.1 and Pain in left toe(s) M79.[address] [address] 01/05/2025 Di [facility] Pain in right toe(s) M79.674 ; Onychomycosis B35.1 and Pain in left toe(s) M79.675 [facility] [address] [place] [address] 03/15/2025 Di Casillas Pain in right toe(s) [...] X ray : Foot, left 3V 03/25/2023 65536-Vruzrimt Plate 04/01/2016 84036- Debride <25 sq cm 04/17/2016 38789-MASVJLJ SKIN/TISSUE 10/02/2022 75477, V2402-EYRHS/INJECT, JOINT/BURSA 1 09/25/2020 Next Appt Details Provider Name:Di gray, 06/08/2025 01:00:00 PM, [address] [place] [address], [phone], Insurance Providers Payer Name Payer Address Payer Phone Subscriber Number Group Number Insured Name Patient Relationship to Insured Coverage Start Date Coverage End Date [employer] Medicare Complete [address] [address] [place] [address] [id number] Rosa Maria Colunga Self - patient is [...]
--- OUTSIDE RECORDS SUMMARY | 2025-05-17 07:39 | XMS_ITS | Clinical Summary ---
Author Organization [facility] Address [address] [facility] [address] [place] [address] Phone Care Team Providers Care Molding Process Technician Name Role Phone Betsey Pastrana MD, MPH Primary Care Provid er Allergies Active Allergy Reactions Criticality Noted Date Comments Bee Pollen 02/04/2025 Celecoxib Unknown 02/04/2025 Mold Extracts 02/04/2025 Medications omeprazole (PRILOSEC) 40 MG capsule Take 40 mg by mouth daily. Active pyridoxine, vitamin B6, (B-6) 100 MG tablet Take 100 mg by mouth daily. Active mirtazapine (REMERON) 30 MG tablet TAKE 1 TABLET(30 MG) BY MOUTH EVERY NIGHT AT BEDTIME 30 tablet 04/27/20 25 Active rOPINIRole (REQUIP) 1 MG tablet Take 1 tablet (1 mg total) by mouth nightly at bedtime. 30 tablet 05/06/20 25 Active rOPINIRole (REQUIP) 1 MG tablet TAKE 1 TABLET(1 MG) BY MOUTH EVERY NIGHT AT BEDTIME 30 tablet 03/03/20 25 025 Discontinued(Re order) mirtazapine (REMERON) 30 MG tablet TAKE 1 TABLET(30 MG) BY MOUTH EVERY NIGHT AT BEDTIME 30 tablet 03/29/20 25 025 Discontinued Active Problems Problem Noted Date Diagnosed Date Mild anemia 04/07/2025 Essential hypertension 04/07/2025 Hereditary hemochromatosis 04/07/2025 Restless leg syndrome 04/07/2025 Encounters Date Type Department Care Team Description 04/27/2025 Refill [facility] [address] [place] [address] Ashanti Camp MD Medication Refill 04/07/2025 8:00 AM EDT Office Visit [facility] [address] [place] [address] Ashanti Camp MD Essential hypertension (Primary Dx); Restless leg syndrome; Hereditary hemochromatosis 03/29/2025 Refill [facility] [address] [place] [address] Ashanti Camp MD Medication Refill (GABAPENTIN 300MG CAPSULES/Remelon) 03/03/2025 Refill [facility] Primary Care [address] [place] [address] Betsey Pastrana MD, MPH Medication Refill from Last 3 Months Immunizations Immunization Administration Dates Next Due Influenza High-Dose Quadriva lent Preservative Free IM 06/17/2022,05/08/2021,04/25/2020 Influenza High-Dose Trivalen t Preservative Free IM 06/07/2024,05/18/2018,05/27/2017 Influenza Trivalent Adjuvant ed Preservative free IM 05/05/2019 Pneumococcal conjugate PCV13 05/27/2017 RSV Vaccine (monovalent, adjuvanted) 06/07/2024 Tdap 05/26/2020,11/09/2018 Family History Medical History Relation Comments Heart attack Father massive CT when driving his car Liver cancer Sister [...] (2 of 2 - PPSV23) 05/27/2018 05/27/2017 INFLUENZA VACCINE (#1) 2025 , 06/17/2022, 05/08/2021, Additional history exists COVID-19 VACCINE ( season) 2025 06/07/2024, 06/21/2022, 07/05/2021, Additional history exists BLOOD [...] topic Medical Devices Not on file Insurance [facility] RE[facility] MEDICARE PART A & B [facility] RE[facility] MEDICARE PART A & B [facility] REPLACEMENT MEDICARE PART A & [place] [address] [place] [address] MEDICARE REPLACEMENT MEDICARE PART A & B MEDICARE REPLACEMENT MEDICARE PART A & B [facility] MEDIC[facility] REPLACEMENT MEDICARE PART A & B Care Teams Molding Process Technician Relationship Specialty Start Date End Date Betsey Pastrana MD, MPH [address] [place] [address] [email or web address] PCP - General Family Medicine 02/04/25 Additional Source Comments The information contained in this document represents components of the legal health record. It is not the complete legal health record.[facility]
== END 2025-05-17 07:34 | disposition home or self-care (01) ==
LOC: HO.MAMMO 07:33
PROVIDERS: PCP Internal Medicine; Visit Provider Family Medicine
DX: Z12.31 Encounter for screening mammogram for malignant neoplasm of breast (principal)
CPT/HCPCS: 77063; 77067

== ENCOUNTER → 2025-05-17 08:00 | Outpatient (BNV) | payer MEDICARE, SELFPAY | PROVIDERS: PCP Internal Medicine; Visit Provider Internal Medicine | DX: Z12.31 Encounter for screening mammogram for malignant neoplasm of breast (principal) | CPT/HCPCS: 77063; 77067 ==

== ENCOUNTER 2025-06-07 07:46 | Outpatient (REF) | payer MEDICARE, SELFPAY ==
--- OUTSIDE RECORDS SUMMARY | 2024-03-15 12:45 | XMS_ITS ---
Author Organization Nikhil Kidd III, MD Address [address] [place] [address] [address] [place] [facility] [place] [address] Care Team Providers Care Trailer Driver Name Role Phone Erlin Brown MD Primary Care Provider Nikhil Carranza III [phone] Dr. Nikhil Kidd III REASON FOR VISIT Follow Up Encounters Encounter Location Date Provider Diagnosis Nikhil Kidd III, MD [address] [place] [address] [place] [address] 03/15/2024 Nikhil Kidd Plan Of Treatment Next Appt Details Provider Name:Nikhil Kidd , 03/23/2026 09:00:00 AM, [address] [place] [address] [place], [address], Progress Notes * MARTI HAYSJORIE ADOB:[birth year] (85 yo F)Acc No.[id number]:03/15/2024 Progress Notes Patient: JUSTIN CHUA Provider: Ericka Kidd MD :1940 A ge:83 Y S ex:Female Date:03/15/2024 Address:[address] [place] [address] Pcp:Erlin Brown MD Subjective: * Chief Complaints: * 1 . Follow Up. * Medical History: Objective: * Vitals: Assessment: Plan: * Treatment: * Images: * The named appointment provid er may or may not be the originator of this progress note, and it is not deemed complete until electronically signed by the appointment provider. Sign off status: Pending * Provider: Ericka Kidd MD Date: 0 03/15/2024 Generated for Jensen sparks/Lilliana/Irina on: 0 06/07/2025 07:56 AM EDT
--- OUTSIDE RECORDS SUMMARY | 2024-03-17 05:00 | XMS_ITS ---
Author Organization Nikhil Kidd III, MD Address [address] [place] [address] [place] [address] Care Team Providers Care Plant Pathology Teacher Name Role Phone Erlin Brown MD Primary Care Provider Nikhil Carranza III [phone] Dr. Nikhil Kidd III Unavailable Allergies Allergen (clinical drug ingredient) Drug/Non Drug [...] Date Provider Diagnosis Nikhil Kidd III, MD [address] [place] [address] [place] [address] 03/17/2024 Nikhil Kidd Hereditary hemochromatosis E83.110 ; [...] 1 Year, Reason: O V Provider Name:Nikhil Kidd , 03/23/2026 09:00:00 AM, [address] [place] [address] [place], [place], [address], Progress Notes * JUSTIN HAYS ADOB:[birth year] (83 yo F)Acc No.[id number]:03/17/2024 Progress Notes Patient: JUSTIN CHUA Provider: Ericka Kidd MD :1940 A ge:83 Y S ex:Female Date:03/17/2024 Address:[address] [place], [place] [id number] Pcp:Erlin Brown MD Subjective: * Chief Complaints: [...] * Surgical History: l eft knee replacement 2002right knee replacement 2011back surgery 2009TAH/BSO 1993upper endoscopy, [...] 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 * Medications: T akingB6 Natural 100 [...] - 03/08/2024) (Collection Date - 03/08/2024) ?ValueReference Range?Dngpfwfbiwuup662<150 - mg/dL ?Rhbmzclytgr979<200 - mg/dL?LDL Cholesterol Vveumknujm53<100 - mg/dL?HDL Xnywqgailbd27>40 - mg/dL * Examination: G eneral Examination: [...] true * Provider: Ericka Kidd MD Date: 03/17/2024 Generated for Printi ng/Faearleneg/eTransmitting on: 06/07/2025 07:55 AM EDT History and Physical Notes * HPI (History of Present Illness) Category Sub-Category Detail Notes COVID-19 Screening Questions Have you had any new onset fever, chills, cough, congestion, sore throat, shortness of breath, muscle aches?: No Have you been exposed to the virus withi n the last 10 days?: No Have you travelled internationally in e last 10 days?: No Have you been [...]
--- OUTSIDE RECORDS SUMMARY | 2025-03-17 05:00 | XMS_ITS ---
Author Organization Nikhil Kidd III, MD Address [address] [place] [address] [place] [address] Care Team Providers Care Electronic Bench Technician Name Role Phone Erlin Brown MD Primary Care Provider Julietha Nikhil Muñoz III [phone] Dr. Nikhil Kidd III Unavailable Allergies Allergen (clinical drug ingredient) Drug/Non Drug Allergy documented on EMR Reaction Allergy Type Onset Date Status celecoxib Celebrex Unknown Drug Allergy Active Results Component Value Reference Range Notes Ferritin Reviewed date:03/19/2025 03:13:01 PM Interpretation: Performing Lab:[facility], [address] [place] [id number] Notes/Report: Ferritin 333 10-250 ng/mL Lipid Panel Reviewed date:03/19/2025 03:13:01 PM Interpretation: Performing Lab:[facility], [address] [place] [phone] Notes/Report: Triglycerides 74 <150 mg/dL Desirable Triglyceride: less than 150 mg/dL Borderline High Triglyceride 150-199 mg/dL High Triglyceride: 200-499 mg/dL Very High Triglyceride: greater than or equal to 5OO mg/dL Cholesterol 157 <200 mg/dL Desirable Cholesterol: less than 200 mg/dL Borderline High Cholesterol: 200-239 mg/dL High Cholesterol: greater than 239 mg/dL LDL Cholesterol Calculated 96 <100 mg/dL Desirable LDL: less than 100 mg/dL Near Optimal/Above Optimal LDL: 110-129 mg/dL Borderline High LDL: 130-159 mg/dL High LDL: 160-189 mg/dL Very High LDL: greater than or equal to 190 mg/dL HDL Cholesterol 47 >40 mg/dL Desirable HDL: greater than 40 mg/dL Note: This HDL assay may give artificially low results in patients with liver disease. REASON FOR VISIT Hemochromatosis, Hypertension, Hearing loss, GERD, Depression Medications Medication SIG (Take, Route, Frequency, Duration) Notes Start Date End Date Status B6 Natural 100 MG 1 tablet Orally Once a day Active Temazepam 15 MG 1 capsule at bedtime as needed Orally Once a day Active Omeprazole 40 MG 1 tablet Orally Once a day Active rOPINIRole HCl Activ e Gabapentin 300 MG 1 tablet Orally Once a day Active Mirtazapine 30 MG 1 tablet at bedtime Orally Once a day Active NIFEdipine ER Osmotic Release Active Procardia 10 MG 1 capsule Orally Active Social History Tobacco Use: Social History Observation Description Date Details (start date - stop date) Never Smoker NA - NA Tobacco Use/Smoking Question Answer Notes Patient is a nonsmoker Additional Findings: Tobacco Non-User Aggressive non-smoker Problems Problem Type SNOMED Code ICD Code Onset Dates Problem Status W/U Status Risk Notes Problem [id number] Mild anemia (D64.9) Active confirmed Her white blood cell count and hematocrit are slightly below normal but no therapy is indicated. Observation will be continued. Vital Signs Temperature 98.5 degrees Fahrenheit 03/17/20 25 Blood pressure systolic 140 mm Hg 03/17/20 25 Blood pressure diastolic 71 mm Hg 025 Heart Rate 71 /min 03/17/2025 Height 63 in 03/17/2025 Weight 152 lbs 03/17/2025 BMI 26.92 kg/m2 03/17/2025 Encounters Encounter Location Date Provider Diagnosis Nikhil Kidd III, MD [address] [place] [address] [place] [address] 03/17/2025 Nikhil Kidd Hereditary hemochromatosis E83.110 ; Overweight E66.3 ; Essential hypertension I10 and Mild anemia D64.9 Assessments Encounter Date Diagnosis (ICD Code) Assessment Notes Treat ment Notes Treatment Clinical Notes 03/17/2025 Hereditary hemochromatosis (ICD-10 - E83.110) Her ferritin level has slightly increased to 333. An alpha-fetoprotein is not available. She is asymptomatic. Observation was continued. 03/17/2025 Overweight (ICD-10 - E66.3) Her body mass index is 26. We discussed diet and nutrition. We made a plan to stabilize her weight at this level and avoid increases. 03/17/2025 Essential hypertensi on (ICD-10 - I10) Her blood pressure is stable at 140/71. No changes in her regimen were made. 03/17/2025 Mild anemia (ICD-10 - D64.9) Her white blood cell count and hematocrit are slightly below normal but no therapy is indicated. Observation will be continued. Plan Of Treatment Medication Medication Name Sig Start Date Stop Date Notes B6 Natural 100 MG 1 tablet Orally Once a day Temazepam 15 MG 1 capsule at bedtime as needed Orally Once a day Omeprazole 40 MG 1 tablet Orally Once a day rOPINIRole HCl Gabapentin 300 MG 1 tablet Orally Once a day Mirtazapine 30 MG 1 tablet at bedtime Orally Once a day NIFEdipine ER Osmotic Release Procardia 10 MG 1 capsule Orally Pending Test Test Name Order Date PROFILE, FASTING (COMPREHENSIVE METABOLI C) 03/17/2025 CBC w DIFF 03/17/2025 ALPHA-FETOPROTEIN,TUMOR MARKER Next Appt Details Follow Up: 1 Year, Reason: o v review labs Provider Name:Nikhil Kidd , 03/23/2026 09:00:00 AM, [address] [place] [address], [phone], Progress Notes * LIS JUSTIN ADOB:[birth year] (84 yo F)Acc No.[id number]:03/17/2025 Progress Notes Patient: JUSTIN CHUA Provider: Ericka Kidd MD :1940 A ge:84 Y S ex:Female Date:03/17/2025 Address:[address] [place], [place] [id number] Pcp:Erlin Brown MD Subjective: * Chief Complaints: * H emochromatosisHypertensionHearing lossGERDDepression * HPI: C OVID-19 Screening: S he returns for her annual visit for hemochromatosis and complications thereof. There has been no further cases of hemochromatosis and her family since her last visit. She has a new primary care physician in [facility], Dr. Giovana Pastrana at [facility]. Her reflux symptoms are well controlled. Her hearing loss is unchanged. She seemed healthy and well today in the office. Her blood work was reviewed with her. Questions H ave you had any new onset fever, chills, cough, congestion, sore throat, shortness of breath, muscle aches? N o * ROS: G eneral/Constitutional: pain O nly arthritis. C hills d enies. F atigue?admits. F ever d enies. E NT: Decreased hearing i n both ears. R espiratory: Cough d enies. C ardiovascular: [...] have been noted. G enitourinary: Frequent urination a t night. M usculoskeletal: Muscle aches d enies. P ainful joints d enies. S ciatica d enies. W eakness d enies. S kin: Itching d enies. R claudia d enies. S kin lesion(s)?denies. N eurologic: Difficulty speaking d enies. D izziness d enies.?Headache d enies. L ow back pain d enies. P sychiatric: Depressed mood d enies. 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 * Medications: T akingB6 Natural 100 MG Tablet 1 tablet Orally Once a day Temazepam 15 MG Capsule 1 capsule at bedtime as needed Orally Once a day Omeprazole 40 MG Capsule Delayed Release 1 tablet Orally Once a day rOPINIRole HCl Gabapentin 300 MG Capsule 1 tablet Orally Once a day Mirtazapine 30 MG Tablet 1 tablet at bedtime Orally Once a day NIFEdipine ER Osmotic Release Procardia 10 MG Capsule 1 capsule Orally Medication List reviewed and reconciled with the patientTaking B6 Natural 100 MG Tablet 1 tablet Orally Once a day Taking Temazepam 15 MG Capsule 1 capsule at bedtime as needed Orally Once a day Taking Omeprazole 40 MG Capsule Delayed Release 1 tablet Orally Once a day Taking rOPINIRole HCl Taking Gabapentin 300 MG Capsule 1 tablet Orally Once a day Taking Mirtazapine 30 MG Tablet 1 tablet at bedtime Orally Once a day Taking NIFEdipine ER Osmotic Release Taking Procardia 10 MG Capsule 1 capsule Orally Medication List reviewed and reconciled with the patient * Allergies: C jacquelin[Allergies Verified] Objective: * Vitals: H t: 63, Wt:152, BMI:26.92, BP:140/71, HR:71, Temp:98.5, Wt-k.95. * P ast Orders: Lab:Lipid Panel * Collection Date 03/18/2025 03/08/2024 Collection Time 07:15 AM 07:09 AM Order Date 03/17/2025 03/08/2024 Triglycerides 74 (Ref Range: <150 mg/dL) 106 (Ref Range: <150 mg/dL) Cholesterol 157 (Ref Range: <200 mg/dL) 138 (Ref Range: <200 mg/dL) LDL Cholesterol Calculated 96 (Ref Range: <100 mg/dL) 74 (Ref Range: <100 mg/dL) HDL Cholesterol 47 (Ref Range: >40 mg/dL) 43 (Ref Range: >40 mg/dL) * Lab:Ferritin * Collection Date 03/18/2025 03/08/2024 03/04/2023 Collection Time 07:15 AM 07:09 AM 08:05 AM Order Date 03/17/2025 03/08/2024 03/04/2023 Ferritin 333 H (Ref Range: 10-250 ng/mL) 254 H (Ref Range: 10-250 ng/mL) 222 (Ref Range: 10-250 ng/mL) * Lab:Complete Blood Count Aut o Diff * Collection Date 03/18/2025 03/08/2024 03/04/2023 Collection Time 07:15 AM 07:09 AM 08:05 AM Order Date 03/18/2025 03/08/2024 03/04/2023 White Blood Count 3.4 L (Ref Range: 4.8-10.8 X10*3/uL) 3.5 L (Ref Range: 4.8-10.8 X10*3/uL) 3.3 L (Ref Range: 4.8-10.8 X10*3/uL) Red Blood Count 3.65 L (Ref Range: 4.20-5.50 X10*6/uL) 3.61 L (Ref Range: 4.20-5.50 X10*6/uL) 3.66 L (Ref Range: 4.20-5.50 X10*6/uL) Hemoglobin 12.7 (Ref Range: 12.0-16.0 g/dl) 12.8 (Ref Range: 12.0-16.0 g/dl) 12.7 (Ref Range: 12.0-16.0 g/dl) Hematocrit 36.4 L (Ref Range: 37.0-47.0 %) 37.3 (Ref Range: 37.0-47.0 %) 36.8 L (Ref Range: 37.0-47.0 %) Mean Corpuscular Volume 99.7 H (Ref Range: 80.0-98.0 fL) 103.3 H (Ref Range: 80.0-98.0 fL) 100.5 H (Ref Range: 80.0-98.0 fL) Mean Corpuscular Hemoglobin 34.8 H (Ref Range: 27.0-33.0 pg) 35.5 H (Ref Range: 27.0-33.0 pg) 34.7 H (Ref Range: 27.0-33.0 pg) Mean Corpuscular HGB Conc 34.9 (Ref Range: 31.0-35.0 g/dl) 34.3 (Ref Range: 31.0-35.0 g/dl) 34.5 (Ref Range: 31.0-35.0 g/dl) Red Cell Distribution Width 12.7 (Ref Range: 11.0-16.0 %) 12.6 (Ref Range: 11.0-16.0 %) 12.6 (Ref Range: 11.0-16.0 %) Platelet Count 210 (Ref Range: 160-400 X10*3/uL) 202 (Ref Range: 160-400 X10*3/uL) 174 (Ref Range: 160-400 X10*3/uL) Mean Platelet Volume 11.4 (Ref Range: 9.4-12.3 fL) 12.5 H (Ref Range: 9.4-12.3 fL) 11.9 (Ref Range: 9.4-12.3 fL) Neutrophils Percent Auto 43.9 L (Ref Range: 45-73 %) 40.2 L (Ref Range: 45-73 %) 32.9 L (Ref Range: 45-73 %) Imm Gran Pct Auto 0.0 (Ref Range: 0.0-0.4 %) 0.0 (Ref Range: 0.0-0.4 %) 0.3 (Ref Range: 0.0-0.4 %) Lymphocytes Percent Auto 45.1 H (Ref Range: 20-40 %) 44.3 H (Ref Range: 20-40 %) 47.9 H (Ref Range: 20-40 %) Monocytes Percent Auto 8.1 (Ref Range: 2-11 %) 10.9 (Ref Range: 2-11 %) 14.9 H (Ref Range: 2-11 %) Eosinophils Percent Auto 2.0 (Ref Range: 0-4 %) 3.7 (Ref Range: 0-4 %) 3.4 (Ref Range: 0-4 %) Basophils Percent Auto 0.9 (Ref Range: 0-2 %) 0.9 (Ref Range: 0-2 %) 0.6 (Ref Range: 0-2 %) NRBC Pct Auto 0.0 (Ref Range: 0.0-0.2 /100WBC) 0.0 (Ref Range: 0.0-0.2 /100WBC) 0.0 (Ref Range: 0.0-0.2 /100WBC) Neutrophils Absolute Auto 1.5 L (Ref Range: 2.0-8.3 x10*3/uL) 1.4 L (Ref Range: 2.0-8.3 x10*3/uL) 1.1 L (Ref Range: 2.0-8.3 x10*3/uL) Imm Gran Abs Auto 0.00 (Ref Range: 0.00-0.03 X10*3/uL) 0.00 (Ref Range: 0.00-0.03 X10*3/uL) 0.01 (Ref Range: 0.00-0.03 X10*3/uL) Lymphocytes Absolute Auto 1.6 (Ref Range: 1.2-4.9 X10*3/uL) 1.5 (Ref Range: 1.2-4.9 X10*3/uL) 1.6 (Ref Range: 1.2-4.9 X10*3/uL) Monocytes Absolute Auto 0.3 (Ref Range: 0.1-1.2 X10*3/uL) 0.4 (Ref Range: 0.1-1.2 X10*3/uL) 0.5 (Ref Range: 0.1-1.2 X10*3/uL) Eosinophils Absolute Auto 0.1 (Ref Range: 0.0-0.4 X10*3/uL) 0.1 (Ref Range: 0.0-0.4 X10*3/uL) 0.1 (Ref Range: 0.0-0.4 X10*3/uL) Basophils Absolute Auto 0.0 (Ref Range: 0.0-0.2 X10*3/uL) 0.0 (Ref Range: 0.0-0.2 X10*3/uL) 0.0 (Ref Range: 0.0-0.2 X10*3/uL) NRBC Abs Auto 0.000 (Ref Range: 0.0-0.012 X10*3/uL) 0.000 (Ref Range: 0.0-0.012 X10*3/uL) 0.000 (Ref Range: 0.0-0.012 X10*3/uL) ???Lab:Comprehensive [facility]. Panel Fast (Order Date - 03/18/2025) (Collection Date & Time - 03/18/2025 07:15 AM)?ValueReference Range?[id number] 145 - mmol/L?Bilirubin Total0.70.0-1.0 - mg/dL?Aspartate Amino Ljgjlopcxos189-16 - U/L?Alanine Yuddblsyjjlzgmbg143-77 - U/L?Total Protein6.66.5-8.0 - g/dL?Albumin Level4.13.5-5.0 - g/dL?Alkaline Aayebviotqn2826-224 - U/L?Potassium4.23.3-5.1 - mmol/L?Idakfsbk525 96-108 - mmol/L?Carbon Bmnkkuw9142-84 - mmol/L?Anion Nah70J72-03 - ?Blood Urea Bflvtbtx26-92 - mg/dL?Creatinine0.860.5-1.4 - mg/dL ?Estimated Glomerular Filt Rate> 60-?Glucose Ygbqbhz8952-51 - mg/dL?Calcium9.08.4-10.2 - mg/dL * Examination: G eneral Examination: GENERAL APPEARANCE: p leasant, well nourished, well developed, in no acute distress, calm and relaxed, overweight, elderly woman. HEAD: a traumatic, normocephalic. EYES: e [...] LUNGS: c lear to auscultation . BREASTS: N ot examined. ABDOMEN: b owel sounds normal, no ascites, no organomegaly, no mass. RECTAL EXAM: n ot examined. MUSCULOSKELETAL: e xtremities unremarkable, no clubbing, cyanosis or edema, Arthritic changes hands. PERIPHERAL PULSES: n ormal. NEUROLOGIC: a lert and oriented, cranial nerves 2-12 grossly intact, deep tendon reflexes 2+ symmetrical, motor strength normal upper and lower extremities, sensory exam intact. PSYCH: a lert, oriented, cognitive function intact, cooperative with exam, good eye contact, speech clear, thought process logical, goal directed. ? Assessment: * Assessment: 1. H ereditary hemochromatosis - E83.110 (Primary) N otes :Her ferritin level has slightly increased to 333. An alpha-fetoprotein is not available. She is asymptomatic. Observation was continued. 2 . O verweight - E66.3 N otes :Her body mass index is 26. We discussed diet and nutrition. We made a plan to stabilize her weight at this level and avoid increases. 3 . E ssential hypertension - I10 N otes :Her blood pressure is stable at 140/71. No changes in her regimen were made. 4 . M ild anemia - D64.9 N otes :Her white blood cell count and hematocrit are slightly below normal but no therapy is indicated.? Observation will be continued. Plan: * Treatment: Value Reference Range F erritin 333 H 10-250 - ng/mL ?LAB: Lipid Panel (Collection Date & Time - 03/18/2025 07:15 AM)* Value Reference Range T riglycerides 74 <150 - mg/dL * C holesterol 157 <200 - mg/dL * L DL Cholesterol Calculated 96 <100 - mg/dL * H DL Cholesterol 47 >40 - mg/dL 2.?Overweight?LAB: PROFILE, FASTING (COMPREHENSIVE METABOLIC) ?LAB: CBC w DIFF ?LAB: ALPHA-FETOPROTEIN,TUMOR MARKER ?LAB: Ferritin (Collection Date & Time - 03/18/2025 07:15 AM)* Value Reference Range F erritin 333 H 10-250 - ng/mL ?LAB: Lipid Panel (Collection Date & Time - 03/18/2025 07:15 AM)* Value Reference Range T riglycerides 74 <150 - mg/dL * C holesterol 157 <200 - mg/dL * L DL Cholesterol Calculated 96 <100 - mg/dL * H DL Cholesterol 47 >40 - mg/dL 3.?Essential hypertension?LAB: PROFILE, FASTING (COMPREHENSIVE METABOLIC) ?LAB: CBC w DIFF ?LAB: ALPHA-FETOPROTEIN,TUMOR MARKER ?LAB: Ferritin (Collection Date & Time - 03/18/2025 07:15 AM)* Value Reference Range F erritin 333 H 10-250 - ng/mL ?LAB: Lipid Panel (Collection Date & Time - 03/18/2025 07:15 AM)* Value Reference Range T riglycerides 74 <150 - mg/dL * C holesterol 157 <200 - mg/dL * L DL Cholesterol Calculated 96 <100 - mg/dL * H DL Cholesterol 47 >40 - mg/dL 4.?Mild anemia?LAB: PROFILE, FASTING (COMPREHENSIVE METABOLIC) ?LAB: CBC w DIFF ?LAB: ALPHA-FETOPROTEIN,TUMOR MARKER ?LAB: Ferritin (Collection Date & Time - 03/18/2025 07:15 AM)* Value Reference Range F erritin 333 H 10-250 - ng/mL ?LAB: Lipid Panel (Collection Date & Time - 03/18/2025 07:15 AM)* Value Reference Range T riglycerides 74 <150 - mg/dL * C holesterol 157 <200 - mg/dL * L DL Cholesterol Calculated 96 <100 - mg/dL * H DL Cholesterol 47 >40 - mg/dL 5.?Others? Continue B6 Natural Tablet, 100 MG, 1 tablet, Orally, Once a day.?? * Procedure Codes: * Preventive Medicine: Counseling: C are goal follow-up plan: Counseling for abnormal BMI given Y es Above Normal BMI Follow-up D ietary management education, guidance, and counseling * Follow Up: 1 Year (Reason: ov review labs) * Images: * Sign off status: Completed true * Provider: Ericka Kidd MD Date: 0 03/17/2025 Generated for Printi ng/Lilliana/eTransmitting on: 0 06/07/2025 07:55 AM EDT History and Physical Notes * HPI (History of Present Illness) Category Sub-Category Detail Notes COVID-19 Screening Questions Have you had any new onset fever, chills, cough, congestion, sore throat, shortness of breath, muscle aches?: No Examination Category Sub-Category Detail Notes General Examination GENERAL APPEARANCE: pleasant , well nourished, well developed, in no acute distress, calm and relaxed, overweight, elderly woman HEAD: atraumatic, normocep halic EYES: eomi, perrla, anicte jordyn, conjugate EARS: normal NOSE: septum intact NECK/THYROID: no jugular venous di stention, no carotid bruit, thyroid normal HEART: no clicks, gallops, murmurs, or rubs, regular rhythm, S1, S2 normal, no s3, or vascular bruits LUNGS: clear to auscultatio n ABDOMEN: bowel sounds normal, no ascites, no organomegaly, no mass NEUROLOGIC: alert and oriented, cranial nerves 2-12 grossly intact, deep tendon reflexes 2+ symmetrical, motor strength normal upper and lower extremities, sensory exam intact SKIN: no suspicious lesion s, anicteric PERIPHERAL PULSES: normal BREASTS: Not examined MUSCULOSKELETAL: extremities unremark able, no clubbing, cyanosis or edema, Arthritic changes hands LYMPH NODES: no enlarged lymph no mariana,spleen normal RECTAL EXAM: not examined PSYCH: alert, oriented, cog nitive function intact, cooperative with exam, good eye contact, speech clear, thought process logical, goal directed ORAL CAVITY: normal, unremarkable
--- NOTE | ~2025-06-07 | MM_ITS ---
EXAMINATION(S): MM DIAGNOSTIC DIGITAL BREAST TOMOSYNTHESIS, LEFT CLINICAL INFORMATION: Callback from screening for left breast asymmetry in the lateral breast on the CC view. COMPARISON: Comparison made to multiple prior, most recent May 17, 2025, and most remote August 29, 2011. TECHNIQUE: Diagnostic mammogram is obtained with spot compression tomosynthesis images. FINDINGS: BREAST COMPOSITION: There are scattered areas of fibroglandular density. LEFT BREAST: Previously suggested asymmetry in the lateral breast is pliable with spot compression. The local parenchyma on today's images is similar to multiple prior studies as far back as 2010, and most likely represented overlapping fibroglandular breast tissue. MM/MM tomosynthesis added views L IMPRESSION: LEFT BREAST: Negative, no mammographic evidence of malignancy. Normal interval follow-up is recommended in 12 months. ASSESSMENT: BI-RADS: Category 1: Negative RECOMMENDATION: 1 year F/U Results were provided to the patient at time of visit by the technologist. This patient's information was entered into a reminder system with a target due date for their next mammogram. Electronically signed by: Andrés Dimas MD 06/07/2025 10:20 AM EDT
--- OUTSIDE RECORDS SUMMARY | 2025-06-07 07:56 | XMS_ITS | Patient Health Record ---
Author Organization [facility] Address [address] [place] [address] Care Team Providers Care [employer] Advisor Name Role Phone Kevin (RETIRED) Erlin ALCANTARA Primary Care Provide r Unavailable Rashawn Weinstein Jr Unavailable Reason For Referral No Information Plan Of Treatment No Information Insurance Providers Payer Name Payer Address Payer Phone Subscriber Number Group Number Insured Name Patient Relationship to Insured Coverage Start Date Coverage End Date [facility] [address] [address] [place] [address] [id number] JUSTIN HAYS Self - patient is the insured
--- OUTSIDE RECORDS SUMMARY | 2025-06-07 07:56 | XMS_ITS | Patient Health Record ---
Author Organization Nikhil Kidd III, MD Address [address] [place] [address] Care Team Providers Care Director Of Personnel Name Role Phone Erlin Brown MD Primary Care Provider Julietha Nikhil Muñoz III [phone] Dr. Nikhil Kidd III Unavailable [phone] Allergies Allergen (clinical drug ingredient) Drug/Non Drug Allergy documented on EMR Reaction Allergy Type Onset Date Status celecoxib Celebrex Unknown Drug Allergy Active Results Component Value Reference Range Notes Ferritin Reviewed date:03/19/2025 03:13:01 PM Interpretation: Performing Lab:[facility], [address] [place] [phone] Notes/Report: Ferritin 333 10-250 ng/mL Lipid Panel Reviewed date:03/19/2025 03:13:01 PM Interpretation: Performing Lab:[facility], [address] [place] [phone] Notes/Report: Triglycerides 74 <150 mg/dL Desirable Triglyceride: [...] ff Reviewed date:03/19/2025 03:13:00 PM Interpretation: Performing Lab:[facility], [address] [place] [phone] Notes/Report: White Blood Count 3.4 4.8-10.8 X10*3/uL [...] NRBC Abs Auto 0.000 0.0-0.012 X10*3/uL Comprehensive [place]. Panel Fa st Reviewed date:03/19/2025 03:13:01 PM Interpretation: Performing Lab:[facility], [address] [place] [phone] Notes/Report: Sodium 136 135-145 mmol/L Potassium 4.2 [...] Fetoprotein Reviewed date:03/22/2025 08:21:58 PM Interpretation: Performing Lab:[facility], [address] [place] [phone] Notes/Report: Alpha Fetoprotein 2.0 Reference Range: <6.1 [...] of disease. THIS TEST WAS PERFORMED AT: [facility] [address] [place] [phone] BALJIT SCOTT MD US renal BI (Not yet reviewe d by provider) Interpretation: Performing Lab: Notes/Report: [facility] Primary Care [facility] [place] [address] Ultrasound Report Signed Patient: Justin Hays MR#: [id number] 222 : 1940 Acct:[id number] Age/Sex: 84 / F ADM Date: 04/26/25 Loc: HO.HMGCX Attending Dr: Corinne FLORES Ordering Physician: Corinne Hurtado Date of Service: 04/26/25 Procedure(s): US renal BI Accession Number(s): [id number] cc: Nikhil Kidd MD; Corinne Hurtado CLINICAL HISTORY: N20.0 - Calculus of kidney US Renal Comparison: US/MN/SR - US KIDNEY BILATERAL - 04/26/24 11:16 [...] in OV> 04/27/251947 DD/ 47 TD/TT: 04/27/251947 Offset Second Press Operator: [facility] [address] [place] [address] [place] [address] Ultrasound Report Signed Patient: Ko Hays MR#: [id number] 222 : 1940 Acct:[id number] Age/Sex: 84 / F ADM Date: 04/26/25 [facility] Att[facility] Dr: Corinne FLORES Ordering Physician: Corinne Hurtado Date of Service: 04/26/25 Procedure(s): US rah al BI Accession Number(s): [id number] cc: Nikhil Kidd MD; Corinne Hurtado CLINICAL HISTORY: N2 0.0 - Calculus of kidney US Renal Comparison: US/MN/SR - US KIDNEY BILATERAL - 04/26/24 11:16 [...] in OV> 04/27/251947 DD/ 47 TD/TT: 04/27/251947 Offset Second Press Operator: Reason For Referral No Information Medications [...] Problem Status W/U Status Risk Notes Problem 074106323 Overweight (E66.3) Active confirmed Her body mass index is 26. We discussed diet and nutrition. We made a plan to stabilize her weight at this level and avoid increases. Problem 61618563 Hereditary hemochromatosis (E83.110) Active confirmed Her ferritin level has slightly increased to 333. An alpha-fetoprot ein is not available. She is asymptomatic. Observation was continued. Problem 73760836 Essential hypertension (I10) Active confirmed Her blood pressure is stable at 140/71. No changes in her regimen were made. Problem 169823196 Gastroesophageal reflux disease without esophagitis (K21.9) Active confirmed Her reflux is well-controlle d with wafr-sbb-shptx er medications and no change in regimen is necessary. Problem 126731306 Osteoarthritis o f both knees, unspecified osteoarthritis type (M17.0) Active confirmed She has had bilateral knee replacements and is doing well. Problem 66113877 Other depression (F32.89) Active confirmed She is very stated over the loss of her recently. She seems to be received but does not seem depressed. 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 No additional treatment is necessary. Problem 70625837 Gastric ulcer without hemorrhage or perforation, unspecified chronicity (K25.9) Active confirmed On antral ulcer was found at endoscopy in 2002 but has not relapsed. Problem 371951475 Mild anemia (D64.9) Active confirmed Her white [...] Date Provider Diagnosis Nikhil Kidd III, MD [address] [place] [address] [address] [facility] [place] [address] 03/17/2025 Nikhil Kidd Hereditary hemochromatosis E83.110 ; [...] C) 03/17/2025 PROFILE, RANDOM (COMPREHENSIVE METABOLIC ) 02/24/2019 PROFILE, [...] CBC w DIFF 08/26/2018 RETICULOCYTE COUNT,CORRECTED 01/02/2018 ALPHA-FETOPROTEIN,TUMOR MARKER 5 CT ABD WITH CONTRAST 10/01/2021 CBC WITH AUTO DIFF 03/17/2024 Ferritin 03/14/2023 Ferritin 03/17/2024 Lipid Panel 03/14/2023 US renal BI 04/27/2025 Next Appt Details Provider Name:Nikhil Kidd , 03/23/2026 09:00:00 AM, [address] [place] [address] DR, [facility] [address], [place], [address], Insurance Providers Payer Name Payer Address Payer Phone Subscriber Number Group Number Insured Name Patient Relationship to Insured Coverage Start Date Coverage End Date [employer] Medicare Advantage [address] [address] [place] [address] [id number] JUSTIN HAYS Self - patient is the insured MEDICARE [facility] [address] [place] [phone] [id number] JUSTIN HAYS Self - patient is the [...]
--- OUTSIDE RECORDS SUMMARY | 2025-06-07 07:56 | XMS_ITS | Clinical Summary ---
Author Organization [facility] Address [address] [facility] [address] [place] [address] Phone Care Team Providers Care Jig Hand Name Role Phone Betsey Pastrana MD, MPH Primary Care Provid er Allergies Active Allergy Reactions Criticality Noted Date Comments Bee Pollen 02/04/2025 Celecoxib Unknown 02/04/2025 Mold Extracts 02/04/2025 Medications omeprazole (PRILOSEC) 40 MG capsule Take 40 mg by mouth daily. Active pyridoxine, vitamin B6, (B-6) 100 MG tablet Take 100 mg by mouth daily. Active rOPINIRole (REQUIP) 1 MG tablet Take 1 tablet (1 mg total) by mouth nightly at bedtime. 30 tablet Active mirtazapine (REMERON) 30 MG tablet TAKE 1 TABLET(30 MG) BY MOUTH EVERY NIGHT AT BEDTIME 90 tablet 3 Active mirtazapine (REMERON) 30 MG tablet TAKE 1 TABLET(30 MG) BY MOUTH EVERY NIGHT AT BEDTIME 30 tablet 5 05/30/20 25 Discontinued Active Problems Problem Noted Date Diagnosed Date Mild anemia 04/07/2025 Essential hypertension 04/07/2025 Hereditary hemochromatosis 04/07/2025 Restless leg syndrome 04/07/2025 Encounters Date Type Department Care Team Description 05/27/2025 Refill [facility] [address] [place] [address] Giovanna Mix PA-C Medication Refill 04/27/2025 Refill [facility] [address] [place] [address] Ashanti Camp MD Medication Refill 04/07/2025 8:00 AM EDT Office Visit [facility] [address] [place] [address] Ashanti Camp MD Essential hypertension (Primary Dx); Restless leg syndrome; Hereditary hemochromatosis 03/29/2025 Refill [facility] [address] [place] [address] Ashanti Camp MD Medication Refill (GABAPENTIN 300MG CAPSULES/Remelon) from Last 3 Months Immunizations Immunization Administration Dates Next Due Influenza High-Dose Quadriva lent Preservative Free IM 06/17/2022,05/08/2021,04/25/2020 Influenza High-Dose Trivalen t Preservative Free IM 06/07/2024,05/18/2018,05/27/2017 Influenza Trivalent Adjuvant ed Preservative free IM 05/05/2019 Pneumococcal conjugate PCV13 05/27/2017 RSV Vaccine (monovalent, adjuvanted) 06/07/2024 Tdap 05/26/2020,11/09/2018 Family History Medical History Relation Comments Heart attack Father massive [place] when driving his car Liver cancer Sister [...] 02/04/2025 9:49 AM EDT Plan of Treatment Upcoming Encounters Date Type Department Care Team (Late st Contact Info) Description 10/07/2025 10:40 AM EST Office Visit [facility] [address] [place] [address] Ashanti Camp MD [address] [place] [address] [address] [place] [address] [email or web address] Health Maintenance Due Date Last Done Comments DEPRESSION SCREENING 1951 ZOSTER VACCINES (1 of 2) 1989 OSTEOPOROSIS SCREENING INITIAL (ONE-TIME) 2004 PNEUMOCOCCAL VACCINES (50+ years) (2 of 2 - PPSV23) 05/27/2018 05/27/2017 INFLUENZA VACCINE (#1) 2025 , 06/17/2022, 05/08/2021, Additional history exists COVID-19 VACCINE ( season) 2025 06/07/2024, 06/21/2022, 07/05/2021, Additional history exists Adult Td,Tdap Booster 05/26/2030 05/26/2020, 019 RSV [...] topic Medical Devices Not on file Insurance [facility] MEDICARE REPLACEMENT MEDICARE PART A & B [facility] MEDIC[facility] REPLACEMENT MEDICARE PART A & B [facility] MEDICARE [facility]PLACEMENT MEDICARE PART A & B [facility] MEDICARE REPLACEMENT MEDICARE PART A & B [facility] MEDICARE REPLACEMENT MEDICARE PART A & B [facility] MEDICARE REPLACEMENT MEDICARE PART A & B Care Teams Jig Hand Relationship Specialty Start Date End Date Betsey Pastrana MD, MPH [address] [place] [address] [email or web address] PCP - General Family Medicine 02/04/25 Additional Source Comments The information contained in this document represents components of the legal health record. It is not the complete legal health record.[facility]
--- OUTSIDE RECORDS SUMMARY | 2025-06-07 07:56 | XMS_ITS | Patient Health Record ---
[facility] Organization [facility] Address [address] [facility] [place] [address] Care Team Providers Care Tenter Feeder Name Role Phone Betsey Pastrana Primary Care Provider Unavail able Di Casillas Unavailable [phone] Allergies Allergen (clinical drug ingredient) Drug/Non Drug [...] 03/15/2025 Encounters Encounter Location Date Provider Diagnosis [address] [address] 08/03/2024 [facility] Pain in right toe(s) M79.674 ; Onychomycosis B35.1 and Pain in left toe(s) M79.[address] [address] 10/19/2024 [facility] Pain in right toe(s) M79.674 ; Onychomycosis B35.1 and Pain in left toe(s) M79.[address] [address] 01/05/2025 [facility] Pain in right toe(s) M79.674 ; Onychomycosis B35.1 and Pain in left toe(s) M79.[address] [address] 03/15/2025 [facility] Pain in right toe(s) M79.674 [...] - B35.1) 10/19/2024 Onychomycosis (ICD-10 - B35.1) 01/05/2025 Pain in left toe(s) (ICD-10 - M79.675) 03/15/2025 Pain in left toe(s) (ICD-10 - M79.675) 10/19/2024 Pain in left toe(s) (ICD-10 - M79.675) Plan Of Treatment Pending Test Test Name Order Date X ray : Foot, left 2V 04/01/2016 X ray : Foot, right 2V 04/01/2016 X ray : Foot, left 3V 07/26/2021 X ray : Foot, left 3V 10/23/2022 X ray : Foot, left 3V 02/26/2023 X ray : Foot, left 3V 03/25/2023 69282-Caartmnv Plate 04/01/2016 90730- Debride <25 sq cm 04/17/2016 13788-YIHCUMF SKIN/TISSUE 10/02/2022 41020, P6876-PPOBV/INJECT, JOINT/BURSA 1 09/25/2020 Next Appt Details Provider Name:Di gray, 06/08/2025 01:00:00 PM, [address] [facility], [place], [address], Insurance Providers Payer Name Payer Address Payer Phone Subscriber Number Group Number Insured Name Patient Relationship to Insured Coverage Start Date Coverage End Date [employer] Medicare Complete [address] [address] [place] [address] [id number] Rosa Maria Colunga Self - patient is the insured Medical (General) History Medical History History ICD Code Arthritis Cataracts Depression High blood pressure Reflux Scarlet fever Measles Mumps Chicken pox psoriasis (hands) joint,bone implants, screws hemochromatosis transfusions Surgical History Surgery Date(Month/Year) hysterectomy 1992 back surgery 2009 bilateral vein 1974 hammer toes knee replacement 2001 2010 back 2008 cataracts 2009 Lithotrispy, Kidney 2019 R hand 02/2022 Total excision 5th Met head Left foot P/ B 03/19/2023 Hospitalization History Reason Date(Month/Year) UTI, back issues 11/2024 transfusions 1974 2 ear surgeries 1963
== END 2025-06-07 07:47 | disposition home or self-care (01) ==
LOC: HO.MAMMO 07:46
PROVIDERS: PCP Internal Medicine; Visit Provider Internal Medicine
DX: N64.89 Other specified disorders of breast (principal)
CPT/HCPCS: 77061; 77065

== ENCOUNTER → 2025-06-07 08:30 | Outpatient (BNV) | payer MEDICARE, SELFPAY | PROVIDERS: PCP Internal Medicine; Visit Provider Radiology Body Imaging | DX: R92.8 Other abnormal and inconclusive findings on diagnostic imaging of breast (principal) | CPT/HCPCS: 77065; G0279 ==